=== PATIENT | male | born 1930 | race Caucasian/White ===

== ENCOUNTER 2016-11-19 11:37 | Inpatient (IN) | payer OTHER, BC ==
[2016-11-19 11:45] VITALS: BMI 21.6
--- NOTE | 2016-11-19 12:12 | PDOC ---
History of Present Illness - General History Source: Patient Exam Limitations: No Limitations - History of Present Illness Initial Comments: 11/19/16 12:20 The patient is an 86-year-old man, accompanied by his son, with a significant past medical history of hypertension, hypercholesterolemia, prostate Ca, borderline diabetes mellitus, asthma, chronic obstructive pulmonary disease, congestive heart failure who presents to the emergency department for further evaluation of shortness of breath. As per son, the patient lives alone and might 've missed a dose of his medications. He states that he noted that his father had difficulty walking. The patient gets short of breath, just walking a few steps. He also notes that the patient's legs are also swollen. Patient's son is currently arranging home health aide for his father. No fever, chills, weakness, nausea, vomiting, diarrhea. Allergies: Clopidogrel Bisulfate Past Surgical History: Right Carotid endarectomy. Angioplasty Social History: Former smoker. No ETOH and recreational drug use. Primary Care Physician: Dr. Tay Wu <Nelida Ewing - Last Filed: 11/19/16 14:24> <Mireille Milian - Last Filed: 11/19/16 22:30> - General Chief Complaint: Edema Stated Complaint: SWOLLEN FEET, SOB Time Seen by Provider: 11/19/16 12:10 Past History <Nelida Ewing - Last Filed: 11/19/16 14:24> - Past Medical History Anemia: No Asthma: Yes Cancer: Yes (prostate cancer) Cardiac Disorders: Yes (CHF, angina, ASHD, angioplasty) CVA: Yes COPD: Yes CHF: No Dementia: No Diabetes: (borderline) GI Disorders: No Disorders: No HTN: Yes Hypercholesterolemia: Yes Liver Disease: No Suicide Attempt (Hx): No Seizures: No Thyroid Disease: No - Surgical History Abdominal Surgery: No Appendectomy: No Cardiac Surgery: Yes (right carotid end) Cholecystectomy: No Lung Surgery: No Neurologic Surgery: No Orthopedic Surgery: No - Immunization History Immunization Up to Date: Yes - Psycho/Social/Smoking Cessation Hx Anxiety: No Suicidal Ideation: No Smoking Status: No Smoking History: Never smoked Have you smoked in the past 12 months: No Number of Cigarettes Smoked Daily: 0 If you are a former smoker, when did you quit?: 1984 Hx Alcohol Use: No Drug/Substance Use Hx: No Substance Use Type: None Hx Substance Use Treatment: No <Mireille Milian - Last Filed: 11/19/16 22:30> - Past Medical History Allergies/Adverse Reactions: Allergies Allergy/AdvReac Type Severity Reaction Status Date / Time clopidogrel bisulfate Allergy Verified 11/19/16 11:45 [From Plavix] Home Medications: Ambulatory Orders Aspirin [ASA -] 81 mg PO DAILY 11/19/16 Atenolol [Tenormin -] 50 mg PO DAILY 11/19/16 Cilostazol 100 mg PO BID 11/19/16 Colchicine [Colcrys] 0.6 mg PO DAILY 11/19/16 Famotidine 20 mg PO DAILY 11/19/16 Furosemide [Lasix] 40 mg PO DAILY 11/19/16 Loperamide HCl [Imodium -] 2 mg PO DAILY 11/19/16 Losartan Potassium [Cozaar] 25 mg PO DAILY 11/19/16 Multivitamin [Poly-Vitamin] 1 each PO DAILY 11/19/16 Potassium Chloride [Klor-Con M20] 20 meq PO DAILY 11/19/16 Simvastatin [Zocor -] 40 mg PO HS 11/19/16 Tamsulosin HCl [Flomax] 0.4 mg PO DAILY 11/19/16 Review of Systems - Review of Systems Able to Perform ROS?: Yes Comments:: 11/19/16 12:35 GENERAL/CONSTITUTIONAL: No fever or chills. No weakness. HEAD, EYES, EARS, NOSE AND THROAT: No change in vision. No ear pain or discharge. No sore throat. CARDIOVASCULAR: Yes: Shortness of breath. No chest pain or shortness of breath. RESPIRATORY: No cough, wheezing, or hemoptysis. GASTROINTESTINAL: No abdominal pain, nausea, vomiting, diarrhea or constipation. GENITOURINARY: No dysuria, frequency, or change in urination. MUSCULOSKELETAL: Yes: Leg swelling. No neck or back pain. SKIN: No rash NEUROLOGIC: No headache, vertigo, loss of consciousness, or change in strength/ sensation. ENDOCRINE: No increased thirst. No abnormal weight change. HEMATOLOGIC/LYMPHATIC: No anemia, easy bleeding, or history of blood clots. ALLERGIC/IMMUNOLOGIC: No hives or skin allergy. <Nelida Ewing - Last Filed: 11/19/16 14:24> *Physical Exam - Vital Signs Last Vital Signs Temp Pulse Resp BP Pulse Ox 97.5 F L 97 H 20 116/74 96 11/19/16 11:39 11/19/16 11:39 11/19/16 11:39 11/19/16 11:39 11/19/16 11:39 - Physical Exam Comments: 11/19/16 12:37 GENERAL: Awake, alert, and fully oriented, in no acute distress HEAD: No signs of trauma EYES: PERRLA, EOMI, sclera anicteric, conjunctiva clear ENT: Auricles normal inspection, hearing grossly normal, nares patent, oropharynx clear without exudates. Moist mucosa NECK: Normal ROM, supple, no lymphadenopathy, JVD, or masses LUNGS: Lung sounds are distant. HEART: Regular rate and rhythm, normal S1 and S2, no murmurs, rubs or gallops ABDOMEN: Soft, nontender, normoactive bowel sounds. No rebound. No masses EXTREMITIES: Normal range of motion, +2 pitting edema to the negron, bilaterally. No clubbing or cyanosis. No cords, erythema, or tenderness NEUROLOGICAL: Cranial nerves II through XII grossly intact. Normal speech <Nelida Ewing - Last Filed: 11/19/16 14:24> - Vital Signs Last Vital Signs Temp Pulse Resp BP Pulse Ox 97.5 F L 97 H 20 116/74 96 11/19/16 11:39 11/19/16 11:39 11/19/16 11:39 11/19/16 11:39 11/19/16 11:39 <Mireille Milian - Last Filed: 11/19/16 22:30> ED Treatment Course - LABORATORY CBC & Chemistry Diagram: 11/19/16 12:44 11/19/16 12:44 <Nelida Ewing - Last Filed: 11/19/16 14:24> - LABORATORY CBC & Chemistry Diagram: 11/19/16 12:44 11/19/16 12:44 <Mireille Milian - Last Filed: 11/19/16 22:30> Medical Decision Making - Medical Decision Making 11/19/16 14:[address] Tay Wu. Immediate connection. Case was discussed. <Nelida Ewing - Last Filed: 11/19/16 14:24> - Medical Decision Making Case d/w Dr. Wu. Patient appears to have CHF exacerbation based on physical exam findings and lab findings. He is unable to bear any weight on his feet due to the symptoms. Will admit for further workup and management. <Mireille Milian - Last Filed: 11/19/16 22:30> *DC/Admit/Observation/Transfer - Attestations Scribe Attestion: 11/19/16 12:37 Documentation prepared by Nelida Ewing, acting as medical art therapist for Mireille Milian MD. <Nelida Ewing - Last Filed: 11/19/16 14:24> - Discharge Dispostion Admit: Yes <Mireille Milian - Last Filed: 11/19/16 22:30> Diagnosis at time of Disposition: CHF exacerbation Qualifiers: Congestive heart failure type: unspecified congestive heart failure type Qualified Code(s): I50.9 - Heart failure, unspecified - Discharge Dispostion Condition at time of disposition: Stable - Referrals
[2016-11-19 13:19] LABS: BASOPHIL 0.6 % (0-2.0); EOSINOPHIL 0.2 % (0-4.5); MCH 28.5 pg (25.7-33.7); MCHC 33.1 g/dl (32.0-35.9); MEAN CELL VOLUME 85.9 fl (80-96); MEAN PLT VOLUME 6.7 fl (7.5-11.1); PLATELET COUNT 369 K/MM3 (134-434); RDW 14.4 % (11.9-15.9)
[2016-11-19 13:47] LABS: ALBUMIN 2.8 g/dl (3.4-5.0); ANION GAP 10 (8-16); CALCIUM 8.7 mg/dL (8.5-10.1); CO2 30 mmol/L (21-32); GLUCOSE,RANDOM 93 mg/dL (74-106)
[2016-11-19 13:52] LABS: ALK PHOS 67 U/L (45-117); BILIRUBIN,TOTAL 0.7 mg/dL (0.2-1.0); CREATININE 0.7 mg/dL (0.7-1.3); SGOT/AST 12 U/L (15-37); SGPT/ALT 11 U/L (12-78); TOT PROT 6.5 g/dl (6.4-8.2); TROPONIN I < 0.02 ng/ml (0.00-0.05)
[2016-11-19] MEDS ORDERED: FUROSEMIDE 40 MG/4 ML INJECTABLE VIAL IVPUSH ONE (14:23)
[2016-11-19] MEDS ORDERED: FUROSEMIDE 40 MG/4 ML INJECTABLE VIAL ONE (14:50)
[2016-11-19 16:26] LABS: URINE APPEARANCE CLEAR; URINE BILIRUBIN NEGATIVE (NEGATIVE); URINE COLOR YELLOW; URINE GLUCOSE (UA) NEGATIVE (NEGATIVE); URINE KETONE 1+ (NEGATIVE); URINE LEUK ESTERASE NEGATIVE (NEGATIVE); URINE NITRITE NEGATIVE (NEGATIVE); URINE PROTEIN NEGATIVE (NEGATIVE); URINE UROBILINOGEN 4.0 E.U/dl E.U./dl (0.2-1.0)
[2016-11-19 16:39] LABS: URINE BLOOD 1+ (NEGATIVE)
[2016-11-19 16:41] LABS: URINE BACTERIA RARE /hpf (NONE SEEN); URINE MUCUS RARE; URINE RBC 1 /hpf (0-3); URINE WBC 2 /hpf (3-5)
[2016-11-19] MEDS ORDERED: ACETAMINOPHEN 325 MG TABLET (FP) PO PRN (18:14)
[2016-11-19] MEDS ORDERED: CILOSTAZOL 100 MG TABLET PO SCH (22:00)
[2016-11-19] MEDS: ATORVASTATIN CA 20 MG TABLET (FP) PO SCH (23:32)
[2016-11-19] MEDS: RANITIDINE HCL 150 MG TABLET (FP) PO SCH (23:32)
[2016-11-20] MEDS ORDERED: PT OWN MED DRAWER 7, Y5N ONE ×2 (10:16→22:34)
[2016-11-20] MEDS: RANITIDINE HCL 150 MG TABLET (FP) PO SCH ×2 (10:33→23:03)
[2016-11-20] MEDS: ASPIRIN COATED 81 MG TABLET.EC PO SCH ×2 (10:33→10:34)
[2016-11-20] MEDS: LOSARTAN POTASSIUM 25 MG TABLET PO SCH (10:33)
[2016-11-20] MEDS: MULTIVITAMINS (DAILY MVI) TABLET (FP) PO SCH (10:33)
[2016-11-20] MEDS: ATENOLOL 50 MG TABLET (FP) PO SCH (10:33)
[2016-11-20] MEDS: TAMSULOSIN HCL 0.4 MG CAP.ER.24H (FP) PO SCH (10:33)
[2016-11-20] MEDS: POTASSIUM CHLORIDE TABS 20 MEQ TABLET.ER (FP) PO SCH (10:34)
[2016-11-20] MEDS: FUROSEMIDE 40 MG/4 ML INJECTABLE VIAL IVPB SCH (10:34)
[2016-11-20] MEDS: CILOSTAZOL 50 MG TABLET (FP) PO SCH ×2 (10:34→23:04)
--- NOTE | 2016-11-20 10:38 | CON.PULM ---
Consult Consult Specialty:: PULMONARY Referred by:: Dr. Wu Reason for Consultation:: CHF - History of Present Illness Chief Complaint: feet swelling History of Present Illness: 86yo male with h/o HTN, hypercholesterolemia, COPD, CHF who presents with increasing leg swelling. He does not recall how long the swelling has occurred. He denies shortness of breath although his ER presenting complaint was shortness of breath. No chest pain or palpitations. No fevers, chills or sweats. No nausea, vomiting. He sleeps on 2 pillows for comfort. He denies cough or wheezing. He takes a "couple" of inhalers at home but does not recall the names. 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) Pulmonary: Yes: COPD Renal/: Yes: Other (PAST PROSTATE CA) - Alcohol/Substance Use Hx Alcohol Use: No - Smoking History Smoking history: Former smoker Have you smoked in the past 12 months: No Aproximately how many cigarettes per day: 0 If you are a former smoker, when did you quit?: 1984 Home Medications - Allergies Allergies/Adverse Reactions: Allergies Allergy/AdvReac Type Severity Reaction Status Date / Time clopidogrel bisulfate Allergy Verified 11/19/16 11:45 [From Plavix] - Home Medications Home Medications: Ambulatory Orders Aspirin [ASA -] 81 mg PO DAILY 11/19/16 Atenolol [Tenormin -] 50 mg PO DAILY 11/19/16 Cilostazol 100 mg PO BID 11/19/16 Colchicine [Colcrys] 0.6 mg PO DAILY 11/19/16 Famotidine 20 mg PO DAILY 11/19/16 Furosemide [Lasix] 40 mg PO DAILY 11/19/16 Loperamide HCl [Imodium -] 2 mg PO DAILY 11/19/16 Losartan Potassium [Cozaar] 25 mg PO DAILY 11/19/16 Multivitamin [Poly-Vitamin] 1 each PO DAILY 11/19/16 Potassium Chloride [Klor-Con M20] 20 meq PO DAILY 11/19/16 Simvastatin [Zocor -] 40 mg PO HS 11/19/16 Tamsulosin HCl [Flomax] 0.4 mg PO DAILY 11/19/16 Family Disease History - Family Disease History Other Family History: non-contributory Review of Systems - Review of Systems Constitutional: denies: Chills, Fever Eyes: denies: Recent Change in Vision HENT: denies: Nasal Congestion, Throat Pain Neck: denies: Stiffness, Tenderness Cardiovascular: reports: Edema. denies: Chest Pain, Palpitations, Shortness of Breath Respiratory: denies: Cough, Hemoptysis, SOB, Wheezing Gastrointestinal: denies: Abdominal Pain, Nausea, Vomiting Genitourinary: denies: Dysuria, Hematuria Neurological: denies: Dizziness, Headache Physical Exam Vital Sings: Vital Signs Temperature 97.5 F L 11/20/16 05:29 Pulse Rate 87 11/20/16 05:29 Respiratory Rate 20 11/20/16 05:29 Blood Pressure 148/74 11/20/16 05:29 O2 Sat by Pulse Oximetry (%) 95 11/19/16 21:00 Constitutional: Yes: No Distress, Calm Eyes: Yes: Conjunctiva Clear, EOM Intact HENT: Yes: Atraumatic, Normocephalic Neck: Yes: Supple, Trachea Midline Cardiovascular: Yes: Regular Rate and Rhythm Respiratory: Yes: Diminished (decreased breath sounds at the bases) ...Clubbing: No Gastrointestinal: Yes: Normal Bowel Sounds, Soft. No: Tenderness Edema: Yes (trace) Neurological: Yes: Alert, Oriented Imaging - Results Chest X-ray: Report Reviewed, Image Reviewed (no infiltrates) Problem List - Problems (1) Acute on chronic diastolic (congestive) heart failure Code(s): I50.33 - ACUTE ON CHRONIC DIASTOLIC (CONGESTIVE) HEART FAILURE (2) Pulmonary hypertension Code(s): I27.2 - OTHER SECONDARY PULMONARY HYPERTENSION (3) COPD (chronic obstructive pulmonary disease) Code(s): J44.9 - CHRONIC OBSTRUCTIVE PULMONARY DISEASE, UNSPECIFIED (4) Hypertension Code(s): I10 - ESSENTIAL (PRIMARY) HYPERTENSION (5) Hypercholesteremia Code(s): E78.00 - PURE HYPERCHOLESTEROLEMIA, UNSPECIFIED Assessment/Plan Acute on Chronic Diastolic Heart Failure Pulmonary HTN COPD HTN Hypercholesterolemia - pt placed on IV lasix with significant improvement in leg swelling - monitor urine output, creatinine - daily weights - inhaled bronchodilators - O2 as needed - DVT prophylaxis Thank you for this consult Gt Ayala MD
--- NOTE | 2016-11-20 12:24 | EKG ---
Test Reason : Blood Pressure : / mmHG Vent. Rate : 098 BPM Atrial Rate : 098 BPM P-R Int : 128 ms QRS Dur : 116 ms QT Int : 360 ms P-R-T Axes : 076 061 048 degrees QTc Int : 459 ms NORMAL SINUS RHYTHM INCOMPLETE RIGHT BUNDLE BRANCH BLOCK BORDERLINE ECG WHEN COMPARED WITH ECG OF 17-JAN-2015 11:48, INCOMPLETE RIGHT BUNDLE BRANCH BLOCK HAS REPLACED RIGHT BUNDLE BRANCH BLOCK Confirmed by JOAQUÍN FLORES, SAMEERA ([id number]) on 11/20/2016 12:23:57 PM Referred By: Confirmed By:SAMEERA YANES MD
--- NOTE | 2016-11-20 16:35 | CON.CARD ---
Consult Consult Specialty:: Cardiology Referred by:: Dr. Wu Reason for Consultation:: Cardiac evaluation - History of Present Illness Chief Complaint: Shortness of breath History of Present Illness: Patient is an 86 year old male with underlying history of hypertension, hypercholesterolemia, COPD, LV diastolic dysfunction with history of class II NYHA classsification heart failure, CAD, angina pectoris, PAD s/p INTERLOCKER, non- obstructive carotid artery disease. He presented to [facility] with lower extremity edema and shortness of breath. Currently he denies shortness of breath. He denies chest pain or palpitations. He denies paroxysmal nocturnal dyspnea or orthopnea. He denies fever or chills. He denies headache or lightheadedness. He denies cough or expectorations. Cardiology consultation was called for further evaluation. - History Source History Provided By: Patient, Family Member, Medical Record Limitations to Obtaining History: No Limitations - Past Medical History Cardio/Vascular: Yes: CAD, CHF, HTN, Hyperlipdemia, Other (ASHD PAD S/P INTERLOCKER) Pulmonary: Yes: COPD Renal/: Yes: Other (PROSTATE CA) - Past Surgical History Additional Surgical History: INTERLOCKER - Alcohol/Substance Use Hx Alcohol Use: No - Smoking History Smoking history: Former smoker Have you smoked in the past 12 months: No Aproximately how many cigarettes per day: 0 If you are a former smoker, when did you quit?: 1984 Home Medications - Allergies Allergies/Adverse Reactions: Allergies Allergy/AdvReac Type Severity Reaction Status Date / Time clopidogrel bisulfate Allergy Verified 11/19/16 11:45 [From Plavix] - Home Medications Home Medications: Ambulatory Orders Aspirin [ASA -] 81 mg PO DAILY 11/19/16 Atenolol [Tenormin -] 50 mg PO DAILY 11/19/16 Cilostazol 100 mg PO BID 11/19/16 Colchicine [Colcrys] 0.6 mg PO DAILY 11/19/16 Famotidine 20 mg PO DAILY 11/19/16 Furosemide [Lasix] 40 mg PO DAILY 11/19/16 Loperamide HCl [Imodium -] 2 mg PO DAILY 11/19/16 Losartan Potassium [Cozaar] 25 mg PO DAILY 11/19/16 Multivitamin [Poly-Vitamin] 1 each PO DAILY 11/19/16 Potassium Chloride [Klor-Con M20] 20 meq PO DAILY 11/19/16 Simvastatin [Zocor -] 40 mg PO HS 11/19/16 Tamsulosin HCl [Flomax] 0.4 mg PO DAILY 11/19/16 Family Disease History - Family Disease History Other Family History: non-contributory Review of Systems - Review of Systems Constitutional: denies: Chills, Fever Cardiovascular: reports: Shortness of Breath. denies: Chest Pain, Palpitations Respiratory: reports: SOB. denies: Cough, Hemoptysis, Orthopnea, PND Gastrointestinal: denies: Abdominal Pain, Constipation, Diarrhea, Melena, Nausea , Rectal Bleeding, Vomiting Neurological: denies: Dizziness, Headache, Seizure, Syncope Vital Signs: Vital Signs Temperature 97.6 F 11/20/16 14:48 Pulse Rate 74 11/20/16 14:48 Respiratory Rate 20 11/20/16 14:48 Blood Pressure 90/45 11/20/16 14:48 O2 Sat by Pulse Oximetry (%) 98 11/20/16 09:00 Neck: Yes: Supple Respiratory: Yes: Diminished Gastrointestinal: Yes: Normal Bowel Sounds, Soft. No: Tenderness Cardiovascular: Yes: Regular Rate and Rhythm JVD: No Carotid Bruit: No PMI: Non-Displaced Heart Sounds: Yes: S1, S2 Murmur: No: Systolic Murmur, Diastolic Murmur Edema: Yes Edema: LLE: Trace, RLE: Trace - Other Data Labs, Other Data: CBCD WBC 9.0 K/mm3 (4.0-10.0) D 11/19/16 12:44 RBC 4.04 M/mm3 (4.00-5.60) 11/19/16 12:44 Hgb 11.5 GM/dL (11.7-16.9) L D 11/19/16 12:44 Hct 34.7 % (35.4-49) L D 11/19/16 12:44 MCV 85.9 fl (80-96) 11/19/16 12:44 MCHC 33.1 g/dl (32.0-35.9) 11/19/16 12:44 RDW 14.4 % (11.9-15.9) 11/19/16 12:44 Plt Count 369 K/MM3 (134-434) 11/19/16 12:44 MPV 6.7 fl (7.5-11.1) L D 11/19/16 12:44 CMP Sodium 140 mmol/L (136-145) 11/19/16 12:44 Potassium 4.3 mmol/L (3.5-5.1) 11/19/16 12:44 Chloride 100 mmol/L (98-107) 11/19/16 12:44 Carbon Dioxide 30 mmol/L (21-32) 11/19/16 12:44 Anion Gap 10 (8-16) 11/19/16 12:44 BUN 12 mg/dL (7-18) D 11/19/16 12:44 Creatinine 0.7 mg/dL (0.7-1.3) 11/19/16 12:44 Creat Clearance w eGFR > 60 (>60) 11/19/16 12:44 Random Glucose 93 mg/dL (74-106) D 11/19/16 12:44 Calcium 8.7 mg/dL (8.5-10.1) 11/19/16 12:44 Total Bilirubin 0.7 mg/dL (0.2-1.0) D 11/19/16 12:44 AST 12 U/L (15-37) L D 11/19/16 12:44 ALT 11 U/L (12-78) L D 11/19/16 12:44 Alkaline Phosphatase 67 U/L (45-117) D 11/19/16 12:44 Total Protein 6.5 g/dl (6.4-8.2) 11/19/16 12:44 Albumin 2.8 g/dl (3.4-5.0) L 11/19/16 12:44 CARDIAC ENZYMES Creatine Kinase 27 IU/L (39-308) L 11/19/16 12:44 Troponin I < 0.02 ng/ml (0.00-0.05) 11/19/16 12:44 Normal sinus rhythm with incomplete RBBB Imaging - Results Chest X-ray: Report Reviewed (Unremarkable) EKG: Report Reviewed Problem List - Problems (1) Acute on chronic diastolic (congestive) heart failure Code(s): I50.33 - ACUTE ON CHRONIC DIASTOLIC (CONGESTIVE) HEART FAILURE (2) Hypercholesteremia Code(s): E78.00 - PURE HYPERCHOLESTEROLEMIA, UNSPECIFIED (3) Hypertension Code(s): I10 - ESSENTIAL (PRIMARY) HYPERTENSION Qualifiers: Hypertension type: essential hypertension Qualified Code(s): I10 - Essential (primary) hypertension (4) COPD (chronic obstructive pulmonary disease) Code(s): J44.9 - CHRONIC OBSTRUCTIVE PULMONARY DISEASE, UNSPECIFIED Qualifiers : COPD type: unspecified COPD Qualified Code(s): J44.9 - Chronic obstructive pulmonary disease, unspecified Assessment/Plan 1. Clinical presentation compatible with acute on chronic LV diastolic failure - Class II NYHA classification heart failure 2. COPD with history of exacerbation 3. HTN 4. Hypercholesterolemia 5. CAD, angina pectoris 6. PAD S/P INTERLOCKER 7. Carotid artery disease PLAN: 1. Continue Lasix IV and monitor I/O, daily weight, renal function and electrolytes 2. Continue Atenolol and Losartan 3. Continue Lipitor 4. Continue ASA and Pletal Further plans are to follow Onofre Oseguera MD
--- NOTE | 2016-11-20 21:39 | HP ---
Admitting History and Physical - Primary Care Physician PCP: Tay Wu - Admission Chief Complaint: LEG EDEMA/RESP DISTRESS History of Present Illness: The patient is an 86-year-old man, accompanied by his son, with a significant past medical history of hypertension, hypercholesterolemia, prostate Ca, borderline diabetes mellitus, asthma, chronic obstructive pulmonary disease, congestive heart failure who presents to the emergency department for further evaluation of shortness of breath. As per son, the patient lives alone and might 've missed a dose of his medications. He states that he noted that his father had difficulty walking. The patient gets short of breath, just walking a few steps. He also notes that the patient's legs are also swollen. Patient's son is currently arranging home health aide for his father. No fever, chills, weakness, nausea, vomiting, diarrhea. History Source: Patient, Medical Record - Past Medical History Cardiovascular: Yes: HTN, Other (ASHD PAD S/P LIST [employer]) Pulmonary: Yes: COPD Renal/: Yes: Other (PAST PROSTATE CA) - Smoking History Smoking history: Former smoker Have you smoked in the past 12 months: No Aproximately how many cigarettes per day: 0 If you are a former smoker, when did you quit?: 1984 - Alcohol/Substance Use Hx Alcohol Use: No Home Medications - Allergies Allergies/Adverse Reactions: Allergies Allergy/AdvReac Type Severity Reaction Status Date / Time clopidogrel bisulfate Allergy Verified 11/19/16 11:45 [From Plavix] - Home Medications Home Medications: Ambulatory Orders Aspirin [ASA -] 81 mg PO DAILY 11/19/16 Atenolol [Tenormin -] 50 mg PO DAILY 11/19/16 Cilostazol 100 mg PO BID 11/19/16 Colchicine [Colcrys] 0.6 mg PO DAILY 11/19/16 Famotidine 20 mg PO DAILY 11/19/16 Furosemide [Lasix] 40 mg PO DAILY 11/19/16 Loperamide HCl [Imodium -] 2 mg PO DAILY 11/19/16 Losartan Potassium [Cozaar] 25 mg PO DAILY 11/19/16 Multivitamin [Poly-Vitamin] 1 each PO DAILY 11/19/16 Potassium Chloride [Klor-Con M20] 20 meq PO DAILY 11/19/16 Simvastatin [Zocor -] 40 mg PO HS 11/19/16 Tamsulosin HCl [Flomax] 0.4 mg PO DAILY 11/19/16 Family Disease History - Family Disease History Other Family History: non-contributory Review of Systems - Review of Systems Constitutional: reports: Lethargy, Loss of Appetite, Weakness Eyes: reports: No Symptoms HENT: reports: No Symptoms Neck: reports: No Symptoms Cardiovascular: reports: Shortness of Breath Respiratory: reports: SOB Gastrointestinal: reports: No Symptoms Genitourinary: reports: No Symptoms Musculoskeletal: reports: Joint Pain, Muscle Weakness Integumentary: reports: No Symptoms Neurological: reports: Pre-Existing Deficit, Other Endocrine: reports: No Symptoms Hematology/Lymphatic: reports: No Symptoms Physical Examination Vital Signs: Vital Signs Temperature 98.5 F 11/20/16 18:00 Pulse Rate 77 11/20/16 18:00 Respiratory Rate 20 11/20/16 18:00 Blood Pressure 96/47 11/20/16 18:00 O2 Sat by Pulse Oximetry (%) 98 11/20/16 09:00 Constitutional: Yes: Mild Distress Eyes: Yes: WNL HENT: Yes: WNL Neck: Yes: WNL Cardiovascular: Yes: WNL Respiratory: Yes: Poor Air Entry, SOB, Other Gastrointestinal: Yes: WNL Renal/: Yes: WNL Musculoskeletal: Yes: Back Pain, Muscle Weakness Extremities: Yes: WNL Edema: Yes Edema: LLE: 2+, RLE: 2+ Peripheral Pulses WNL: Yes Integumentary: Yes: WNL Wound/Incision: Yes: Clean/Dry Neurological: Yes: Pre-Existing Deficit ...Motor Strength: LLE, RLE Imaging - Results Chest X-ray: Report Reviewed Problem List - Problems (1) Acute on chronic diastolic (congestive) heart failure Code(s): I50.33 - ACUTE ON CHRONIC DIASTOLIC (CONGESTIVE) HEART FAILURE (2) CHF exacerbation Code(s): I50.9 - HEART FAILURE, UNSPECIFIED Qualifiers: Congestive heart failure type: unspecified congestive heart failure type Qualified Code(s): I50.9 - Heart failure, unspecified (3) Hypercholesteremia Code(s): E78.00 - PURE HYPERCHOLESTEROLEMIA, UNSPECIFIED (4) Hypertension Code(s): I10 - ESSENTIAL (PRIMARY) HYPERTENSION (5) Pulmonary hypertension Code(s): I27.2 - OTHER SECONDARY PULMONARY HYPERTENSION (6) COPD (chronic obstructive pulmonary disease) Code(s): J44.9 - CHRONIC OBSTRUCTIVE PULMONARY DISEASE, UNSPECIFIED (7) Edema Code(s): R60.9 - EDEMA, UNSPECIFIED Assessment/Plan IV LASIX CHANGE TO TELEMETRY HYPOTENSION CARDIO EVAL PULMONARY F/U LABS F/U SNF
[2016-11-20] MEDS: ATORVASTATIN CA 20 MG TABLET (FP) PO SCH (23:03)
[2016-11-21] MEDS: FUROSEMIDE 40 MG/4 ML INJECTABLE VIAL IVPB SCH (09:57)
[2016-11-21] MEDS: POTASSIUM CHLORIDE TABS 20 MEQ TABLET.ER (FP) PO SCH (09:57)
[2016-11-21] MEDS: RANITIDINE HCL 150 MG TABLET (FP) PO SCH ×2 (09:57→22:05)
[2016-11-21] MEDS: TAMSULOSIN HCL 0.4 MG CAP.ER.24H (FP) PO SCH (09:57)
[2016-11-21] MEDS: ATENOLOL 50 MG TABLET (FP) PO SCH (09:57)
[2016-11-21] MEDS: MULTIVITAMINS (DAILY MVI) TABLET (FP) PO SCH (09:57)
[2016-11-21] MEDS: ASPIRIN COATED 81 MG TABLET.EC PO SCH (09:58)
[2016-11-21] MEDS ORDERED: PT OWN MED DRAWER 7, Y5N ONE (10:00)
[2016-11-21] MEDS: LOSARTAN POTASSIUM 25 MG TABLET PO SCH (10:00)
--- NOTE | 2016-11-21 10:02 | PN ---
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 Admitted with dyspnea and pedal edema. No history of orthopnea or PND. Active Medications Generic Name Dose Route Start Last Admin Trade Name Freq PRN Reason Stop Dose Admin Acetaminophen 650 mg 11/19/16 18:14 Tylenol - PO Q6H PRN FEVER OR PAIN Aspirin 81 mg 11/19/16 18:15 11/21/16 09:58 Ecotrin - PO 81 mg DAILY BOBBY Administration Atenolol 50 mg 11/20/16 10:00 11/21/16 09:57 Tenormin - PO 50 mg DAILY BOBBY Administration Atorvastatin Calcium 20 mg 11/19/16 22:00 11/20/16 23:03 Lipitor - PO 20 mg HS BOBBY Administration Cilostazol 100 mg 11/19/16 23:35 11/21/16 10:05 Pletal - PO 100 mg BID BOBBY Administration Furosemide 40 mg 11/20/16 10:00 11/21/16 09:57 Lasix Injection - IVPB 40 mg DAILY BOBBY Administration Losartan Potassium 25 mg 11/20/16 10:00 11/21/16 10:00 Cozaar - PO 25 mg DAILY BOBBY Administration Multivitamins/Minerals/Vitamin C 1 tab 11/20/16 10:00 11/21/16 09:57 Tab-A-Vit - PO 1 tab DAILY BOBBY Administration Potassium Chloride 20 meq 11/20/16 10:00 11/21/16 09:57 K-Dur - PO 20 meq DAILY BOBBY Administration Ranitidine HCl 150 mg 11/19/16 22:00 11/21/16 09:57 Zantac - PO 150 mg BID BOBBY Administration Tamsulosin HCl 0.4 mg 11/20/16 08:30 11/21/16 09:57 Flomax - PO 0.4 mg DAILY@0830 BOBBY Administration O: 86 year old male was in no acute distress, no pallor, cyanosis, clubbing, or jaundice. Last Vital Signs Temp Pulse Resp BP Pulse Ox 98.2 F 92 H 18 99/51 93 L 11/21/16 06:00 11/21/16 06:00 11/21/16 06:00 11/21/16 06:00 11/21/16 06:00 Neck: Supple, no JVD, negative HJR, carotids were equal and upstrokes were normal, no thyromegaly appreciated. Heart: PMI was in the 5th intercostal space, no heaves or thrills, S1 and S2 were normal. No murmurs or gallops were appreciated. Lungs: Clear on auscultation bilaterally. Abdomen: Soft, nontender, no hepatosplenomegaly appreciated, and no palpable masses were felt. Extremities: No calf tenderness or dependent edema. CBC, BMP 11/19/16 12:44 11/19/16 12:44 Impression: (1) Acute on chronic diastolic (congestive) heart failure Code(s): I50.33 - ACUTE ON CHRONIC DIASTOLIC (CONGESTIVE) HEART FAILURE (2) Hypertension Code(s): I10 - ESSENTIAL (PRIMARY) HYPERTENSION Qualifiers: Hypertension type: essential hypertension Qualified Code(s): I10 - Essential (primary) hypertension (3) Hypercholesteremia Code(s): E78.00 - PURE HYPERCHOLESTEROLEMIA, UNSPECIFIED (4) COPD (chronic obstructive pulmonary disease) Code(s): J44.9 - CHRONIC OBSTRUCTIVE PULMONARY DISEASE, UNSPECIFIED Qualifiers : COPD type: unspecified COPD Qualified Code(s): J44.9 - Chronic obstructive pulmonary disease, unspecified Recommendations: 1. Patient needs consulting regarding dietary restrictions, including curtailing of salt intake. 2. Daily weights. 3. Increase ambulation. Attestation: Documentation prepared by Ceferino Starr, acting as medical reception specialist for Stanley Lind MD.
[2016-11-21] MEDS: CILOSTAZOL 50 MG TABLET (FP) PO SCH ×2 (10:05→22:06)
--- NOTE | 2016-11-21 12:02 | PN ---
Progress Note, Physician History of Present Illness: PULMONARY ALERT,CONFUSED,NAD,-TACHYPNEA,-DYSPNEA - Current Medication List Current Medications: Active Medications Acetaminophen (Tylenol -) 650 mg PO Q6H PRN PRN Reason: FEVER OR PAIN Aspirin (Ecotrin -) 81 mg PO DAILY [facility] Last Admin: 11/21/16 09:58 Dose: 81 mg Atenolol (Tenormin -) 50 mg PO DAILY [facility] Last Admin: 11/21/16 09:57 Dose: 50 mg Atorvastatin Calcium (Lipitor -) 20 mg PO HS [facility] Last Admin: 11/20/16 23:03 Dose: 20 mg Cilostazol (Pletal -) 100 mg PO BID [facility] Last Admin: 11/21/16 10:05 Dose: 100 mg Furosemide (Lasix Injection -) 40 mg IVPB DAILY [facility] Last Admin: 11/21/16 09:57 Dose: 40 mg Losartan Potassium (Cozaar -) 25 mg PO DAILY [facility] Last Admin: 11/21/16 10:00 Dose: 25 mg Multivitamins/Minerals/Vitamin C (Tab-A-Vit -) 1 tab PO DAILY [facility] Last Admin: 11/21/16 09:57 Dose: 1 tab Potassium Chloride (K-Dur -) 20 meq PO DAILY [facility] Last Admin: 11/21/16 09:57 Dose: 20 meq Ranitidine HCl (Zantac -) 150 mg PO BID [facility] Last Admin: 11/21/16 09:57 Dose: 150 mg Tamsulosin HCl (Flomax -) 0.4 mg PO DAILY@0830 [facility] Last Admin: 11/21/16 09:57 Dose: 0.4 mg - Objective Vital Signs: Vital Signs Temperature 98.2 F 11/21/16 06:00 Pulse Rate 92 H 11/21/16 06:00 Respiratory Rate 18 11/21/16 09:00 Blood Pressure 99/51 11/21/16 06:00 O2 Sat by Pulse Oximetry (%) 94 L 11/21/16 09:00 Constitutional: Yes: Calm, Thin Eyes: Yes: WNL HENT: Yes: WNL Neck: Yes: Supple Cardiovascular: Yes: Regular Rate and Rhythm, S1, S2 Respiratory: Yes: Diminished Gastrointestinal: Yes: Normal Bowel Sounds, Soft Extremities: Yes: WNL Edema: Yes Assessment/Plan Problem List - Problems (1) Acute on chronic diastolic (congestive) heart failure Code(s): I50.33 - ACUTE ON CHRONIC DIASTOLIC (CONGESTIVE) HEART FAILURE (2) Pulmonary hypertension Code(s): I27.2 - OTHER SECONDARY PULMONARY HYPERTENSION (3) COPD (chronic obstructive pulmonary disease) Code(s): J44.9 - CHRONIC OBSTRUCTIVE PULMONARY DISEASE, UNSPECIFIED (4) Hypertension Code(s): I10 - ESSENTIAL (PRIMARY) HYPERTENSION (5) Hypercholesteremia Code(s): E78.00 - PURE HYPERCHOLESTEROLEMIA, UNSPECIFIED Assessment/Plan Acute on Chronic Diastolic Heart Failure Pulmonary HTN COPD HTN Hypercholesterolemia - continue IV lasix - monitor urine output, creatinine - daily weights - inhaled bronchodilators - O2 as needed DR RITCHIE
--- NOTE | 2016-11-21 15:40 | PN ---
Progress Note, Physician Chief Complaint: AWAKE ALERT NO DISTRESS - Current Medication List Current Medications: Active Medications Acetaminophen (Tylenol -) 650 mg PO Q6H PRN PRN Reason: FEVER OR PAIN Aspirin (Ecotrin -) 81 mg PO DAILY [facility] Last Admin: 11/21/16 09:58 Dose: 81 mg Atenolol (Tenormin -) 50 mg PO DAILY [facility] Last Admin: 11/21/16 09:57 Dose: 50 mg Atorvastatin Calcium (Lipitor -) 20 mg PO HS [facility] Last Admin: 11/20/16 23:03 Dose: 20 mg Cilostazol (Pletal -) 100 mg PO BID [facility] Last Admin: 11/21/16 10:05 Dose: 100 mg Furosemide (Lasix Injection -) 40 mg IVPB DAILY [facility] Last Admin: 11/21/16 09:57 Dose: 40 mg Losartan Potassium (Cozaar -) 25 mg PO DAILY [facility] Last Admin: 11/21/16 10:00 Dose: 25 mg Multivitamins/Minerals/Vitamin C (Tab-A-Vit -) 1 tab PO DAILY [facility] Last Admin: 11/21/16 09:57 Dose: 1 tab Potassium Chloride (K-Dur -) 20 meq PO DAILY [facility] Last Admin: 11/21/16 09:57 Dose: 20 meq Ranitidine HCl (Zantac -) 150 mg PO BID [facility] Last Admin: 11/21/16 09:57 Dose: 150 mg Tamsulosin HCl (Flomax -) 0.4 mg PO DAILY@0830 [facility] Last Admin: 11/21/16 09:57 Dose: 0.4 mg - Objective Vital Signs: Vital Signs Temperature 98.2 F 11/21/16 06:00 Pulse Rate 92 H 11/21/16 06:00 Respiratory Rate 18 11/21/16 09:00 Blood Pressure 99/51 11/21/16 06:00 O2 Sat by Pulse Oximetry (%) 94 L 11/21/16 11:17 Constitutional: Yes: No Distress Eyes: Yes: WNL HENT: Yes: WNL Neck: Yes: WNL Cardiovascular: Yes: WNL Respiratory: Yes: WNL Gastrointestinal: Yes: WNL Genitourinary: Yes: WNL Musculoskeletal: Yes: Muscle Weakness Extremities: Yes: WNL Edema: No Peripheral Pulses WNL: Yes Integumentary: Yes: WNL Wound/Incision: Yes: Clean/Dry Neurological: Yes: Unsteady Gait ...Motor Strength: LLE, RLE Psychiatric: Yes: WNL Problem List - Problems (1) Acute on chronic diastolic (congestive) heart failure Code(s): I50.33 - ACUTE ON CHRONIC DIASTOLIC (CONGESTIVE) HEART FAILURE (2) CHF exacerbation Code(s): I50.9 - HEART FAILURE, UNSPECIFIED Qualifiers: Congestive heart failure type: unspecified congestive heart failure type Qualified Code(s): I50.9 - Heart failure, unspecified (3) Hypercholesteremia Code(s): E78.00 - PURE HYPERCHOLESTEROLEMIA, UNSPECIFIED (4) Hypertension Code(s): I10 - ESSENTIAL (PRIMARY) HYPERTENSION Qualifiers: Hypertension type: essential hypertension Qualified Code(s): I10 - Essential (primary) hypertension (5) Pulmonary hypertension Code(s): I27.2 - OTHER SECONDARY PULMONARY HYPERTENSION (6) COPD (chronic obstructive pulmonary disease) Code(s): J44.9 - CHRONIC OBSTRUCTIVE PULMONARY DISEASE, UNSPECIFIED Qualifiers : COPD type: unspecified COPD Qualified Code(s): J44.9 - Chronic obstructive pulmonary disease, unspecified (7) Edema Code(s): R60.9 - EDEMA, UNSPECIFIED Assessment/Plan IV LASIX CHANGE TO TELEMETRY HYPOTENSION CARDIO EVAL PULMONARY F/U LABS F/U SNF
[2016-11-21] MEDS: ATORVASTATIN CA 20 MG TABLET (FP) PO SCH (22:05)
[2016-11-22 08:13] LABS: MCH 28.5 pg (25.7-33.7); MCHC 33.4 g/dl (32.0-35.9); MEAN CELL VOLUME 85.2 fl (80-96); MEAN PLT VOLUME 7.1 fl (7.5-11.1); PLATELET COUNT 382 K/MM3 (134-434); RDW 14.5 % (11.9-15.9); WHITE BLOOD COUNT 7.1 K/mm3 (4.0-10.0)
[2016-11-22] MEDS: TAMSULOSIN HCL 0.4 MG CAP.ER.24H (FP) PO SCH (08:55)
[2016-11-22 08:58] LABS: ALBUMIN 2.4 g/dl (3.4-5.0); ANION GAP 10 (8-16); CALCIUM 8.3 mg/dL (8.5-10.1); CO2 32 mmol/L (21-32); CREATININE 1.1 mg/dL (0.7-1.3); GLUCOSE,RANDOM 101 mg/dL (74-106)
--- NOTE | 2016-11-22 09:10 | PN ---
Progress Note, Physician History of Present Illness: LEG PAIN - Current Medication List Current Medications: Active Medications Acetaminophen (Tylenol -) 650 mg PO Q6H PRN PRN Reason: FEVER OR PAIN Aspirin (Ecotrin -) 81 mg PO DAILY [facility] Last Admin: 11/21/16 09:58 Dose: 81 mg Atenolol (Tenormin -) 50 mg PO DAILY [facility] Last Admin: 11/21/16 09:57 Dose: 50 mg Atorvastatin Calcium (Lipitor -) 20 mg PO HS [facility] Last Admin: 11/21/16 22:05 Dose: 20 mg Cilostazol (Pletal -) 100 mg PO BID [facility] Last Admin: 11/21/16 22:06 Dose: 100 mg Furosemide (Lasix Injection -) 40 mg IVPB DAILY [facility] Last Admin: 11/21/16 09:57 Dose: 40 mg Losartan Potassium (Cozaar -) 25 mg PO DAILY [facility] Last Admin: 11/21/16 10:00 Dose: 25 mg Multivitamins/Minerals/Vitamin C (Tab-A-Vit -) 1 tab PO DAILY [facility] Last Admin: 11/21/16 09:57 Dose: 1 tab Potassium Chloride (K-Dur -) 20 meq PO DAILY [facility] Last Admin: 11/21/16 09:57 Dose: 20 meq Ranitidine HCl (Zantac -) 150 mg PO BID [facility] Last Admin: 11/21/16 22:05 Dose: 150 mg Tamsulosin HCl (Flomax -) 0.4 mg PO DAILY@0830 [facility] Last Admin: 11/22/16 08:55 Dose: 0.4 mg - Objective Vital Signs: Vital Signs Temperature 97.5 F L 11/22/16 05:49 Pulse Rate 105 H 11/22/16 05:49 Respiratory Rate 20 11/22/16 05:49 Blood Pressure 104/78 11/22/16 05:49 O2 Sat by Pulse Oximetry (%) 96 11/21/16 21:00 Cardiovascular: Yes: Regular Rate and Rhythm Respiratory: Yes: Regular, CTA Bilaterally Gastrointestinal: Yes: Normal Bowel Sounds, Soft Labs: CBC, BMP 11/22/16 06:07 Problem List - Problems (1) Acute on chronic diastolic (congestive) heart failure Assessment/Plan: ON LASIX CARDIO ON BOARD Code(s): I50.33 - ACUTE ON CHRONIC DIASTOLIC (CONGESTIVE) HEART FAILURE (2) Hypertension Assessment/Plan: CONTROLLED Code(s): I10 - ESSENTIAL (PRIMARY) HYPERTENSION Qualifiers: Hypertension type: essential hypertension Qualified Code(s): I10 - Essential (primary) hypertension (3) COPD (chronic obstructive pulmonary disease) Code(s): J44.9 - CHRONIC OBSTRUCTIVE PULMONARY DISEASE, UNSPECIFIED Qualifiers : COPD type: unspecified COPD Qualified Code(s): J44.9 - Chronic obstructive pulmonary disease, unspecified (4) Leg pain Assessment/Plan: H/O PAD ON PLETAL ADD CYMBALTA Code(s): M79.606 - PAIN IN LEG, UNSPECIFIED (5) Anemia Assessment/Plan: MONITOR W/U ORDERED Code(s): D64.9 - ANEMIA, UNSPECIFIED
[2016-11-22 09:24] LABS: ALK PHOS 59 U/L (45-117); BILIRUBIN,TOTAL 0.6 mg/dL (0.2-1.0); SGOT/AST 9 U/L (15-37); SGPT/ALT 9 U/L (12-78); TOT PROT 5.6 g/dl (6.4-8.2)
[2016-11-22] MEDS: ASPIRIN COATED 81 MG TABLET.EC PO SCH (09:34)
[2016-11-22] MEDS: LOSARTAN POTASSIUM 25 MG TABLET PO SCH (09:34)
[2016-11-22] MEDS: POTASSIUM CHLORIDE TABS 20 MEQ TABLET.ER (FP) PO SCH (09:34)
[2016-11-22] MEDS: RANITIDINE HCL 150 MG TABLET (FP) PO SCH ×2 (09:35→23:44)
[2016-11-22] MEDS: MULTIVITAMINS (DAILY MVI) TABLET (FP) PO SCH (09:35)
[2016-11-22] MEDS: ATENOLOL 50 MG TABLET (FP) PO SCH (09:35)
[2016-11-22] MEDS: FUROSEMIDE 40 MG/4 ML INJECTABLE VIAL IVPB SCH (09:38)
[2016-11-22] MEDS: CILOSTAZOL 50 MG TABLET (FP) PO SCH ×3 (09:38→23:44)
--- NOTE | 2016-11-22 11:19 | PN ---
Progress Note (short form) - Note Progress Note: Chief Complaint: Events noted, notes reviewed, denies any chest pain or dyspnea History of Present Illness: Seen and examined on telemetry. Events noted, notes reviewed, denies any chest pain or dyspnea Echocardiography revealed LVH with low normal LV systolic function, trace to mild MR and TR Medications: Current Medications Acetaminophen (Tylenol -) 650 mg PO Q6H PRN PRN Reason: FEVER OR PAIN Aspirin (Ecotrin -) 81 mg PO DAILY [facility] Last Admin: 11/22/16 09:34 Dose: 81 mg Atenolol (Tenormin -) 50 mg PO DAILY [facility] Last Admin: 11/22/16 09:35 Dose: 50 mg Atorvastatin Calcium (Lipitor -) 20 mg PO HS [facility] Last Admin: 11/21/16 22:05 Dose: 20 mg Cilostazol (Pletal -) 100 mg PO BID [facility] Last Admin: 11/22/16 09:38 Dose: Not Given Furosemide (Lasix Injection -) 40 mg IVPB DAILY [facility] Last Admin: 11/22/16 09:38 Dose: Not Given Losartan Potassium (Cozaar -) 25 mg PO DAILY [facility] Last Admin: 11/22/16 09:34 Dose: 25 mg Multivitamins/Minerals/Vitamin C (Tab-A-Vit -) 1 tab PO DAILY [facility] Last Admin: 11/22/16 09:35 Dose: 1 tab Potassium Chloride (K-Dur -) 20 meq PO DAILY [facility] Last Admin: 11/22/16 09:34 Dose: 20 meq Ranitidine HCl (Zantac -) 150 mg PO BID [facility] Last Admin: 11/22/16 09:35 Dose: 150 mg Tamsulosin HCl (Flomax -) 0.4 mg PO DAILY@0830 [facility] Last Admin: 11/22/16 08:55 Dose: 0.4 mg Review of Systems Constitutional: denies Chills or Fever Respiratory: denies Dyspnea or Cough Cardiovascular: As noted above Gastrointestinal: denies Nausea, Vomiting, Diarrhea or Constipation Genitourinary: No Symptoms Reported Musculoskeletal: No Symptoms Reported Vital Signs: Last Vital Signs Temp Pulse Resp BP Pulse Ox 97.5 F L 105 H 20 104/78 96 11/22/16 05:49 11/22/16 05:49 11/22/16 05:49 11/22/16 05:49 11/21/16 21:00 Neck: Supple Negative JVD Respiratory: Diminished Breath Sounds at the Bases Cardiovascular: S1 S2 Regular Rate and Rhythm Gastrointestinal: Soft Benign Normal Bowel Sounds Ext: No Edema Labs: CBC, BMP 11/22/16 06:07 11/22/16 06:07 Assessment/Plan ASSESSMENT: 1. Acute on chronic Class I-II NYHA classification LV failure related to diastolic LV dysfunction, resolved 2. CAD, angina pectoris 3. HTN 4. Hypercholesterolemia 5. Carotid artery disease 6. 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 COPD 8. CKD 9. Anemia PLAN: 1. Continue Lasix but switch to PO therapy 2. Continue B-Maury but initiate Coreg in substitution for Tenormin 3. Continue Losartan 4. Continue Lipitor 5. Continue ASA 6. Continue Pletal Shelbi Mojica MD
--- NOTE | 2016-11-22 14:21 | PN ---
Progress Note (short form) - Note Progress Note: Resting in NAD on RA. Denies CP or SOB. Mildly confused. Intake & Output 11/19/16 11/20/16 11/21/16 11/22/16 23:59 23:59 23:59 23:59 Intake Total 490 Output Total 300 Balance -300 490 Weight 130 lb Last Vital Signs Temp Pulse Resp BP Pulse Ox 97.5 F L 105 H 20 104/78 97 11/22/16 05:49 11/22/16 05:49 11/22/16 05:49 11/22/16 05:49 11/22/16 09:00 Active Medications Acetaminophen (Tylenol -) 650 mg PO Q6H PRN PRN Reason: FEVER OR PAIN Aspirin (Ecotrin -) 81 mg PO DAILY [facility] Last Admin: 11/22/16 09:34 Dose: 81 mg Atorvastatin Calcium (Lipitor -) 20 mg PO HS [facility] Last Admin: 11/21/16 22:05 Dose: 20 mg Carvedilol (Coreg -) 6.25 mg PO BID [facility] Cilostazol (Pletal -) 100 mg PO BID [facility] Last Admin: 11/22/16 11:58 Dose: 100 mg Duloxetine HCl (Cymbalta -) 20 mg PO DAILY [facility] Losartan Potassium (Cozaar -) 25 mg PO DAILY [facility] Last Admin: 11/22/16 09:34 Dose: 25 mg Multivitamins/Minerals/Vitamin C (Tab-A-Vit -) 1 tab PO DAILY [facility] Last Admin: 11/22/16 09:35 Dose: 1 tab Potassium Chloride (K-Dur -) 20 meq PO DAILY [facility] Last Admin: 11/22/16 09:34 Dose: 20 meq Ranitidine HCl (Zantac -) 150 mg PO BID [facility] Last Admin: 11/22/16 09:35 Dose: 150 mg Tamsulosin HCl (Flomax -) 0.4 mg PO DAILY@0830 [facility] Last Admin: 11/22/16 08:55 Dose: 0.4 mg Constitutional: Yes: NAD, Thin Eyes: Yes: WNL HENT: Yes: WNL Neck: Yes: Supple Cardiovascular: Yes: Regular Rate and Rhythm, S1, S2 Respiratory: Yes: few basilar rhonchi Gastrointestinal: Yes: Normal Bowel Sounds, Soft Extremities: Yes: WNL Edema: Yes Laboratory Results - last 24 hr 11/22/16 11/22/16 06:07 06:07 WBC 7.1 RBC 3.44 L Hgb 9.8 L D Hct 29.3 L D MCV 85.2 MCHC 33.4 RDW 14.5 Plt Count 382 MPV 7.1 L Sodium 142 Potassium 3.5 Chloride 100 Carbon Dioxide 32 Anion Gap 10 BUN 22 H D Creatinine 1.1 D Creat Clearance w eGFR > 60 Random Glucose 101 Calcium 8.3 L Total Bilirubin 0.6 AST 9 L D ALT 9 L Alkaline Phosphatase 59 Total Protein 5.6 L Albumin 2.4 L Assessment/Plan Problem List - Problems (1) Acute on chronic diastolic (congestive) heart failure Code(s): I50.33 - ACUTE ON CHRONIC DIASTOLIC (CONGESTIVE) HEART FAILURE (2) Pulmonary hypertension Code(s): I27.2 - OTHER SECONDARY PULMONARY HYPERTENSION (3) COPD (chronic obstructive pulmonary disease) Code(s): J44.9 - CHRONIC OBSTRUCTIVE PULMONARY DISEASE, UNSPECIFIED (4) Hypertension Code(s): I10 - ESSENTIAL (PRIMARY) HYPERTENSION (5) Hypercholesteremia Code(s): E78.00 - PURE HYPERCHOLESTEROLEMIA, UNSPECIFIED Assessment/Plan Acute on Chronic Diastolic Heart Failure Pulmonary HTN COPD HTN Hypercholesterolemia - Lasix - monitor urine output, creatinine - daily weights - inhaled bronchodilators - O2 as needed Dr Quinn
[2016-11-22] MEDS: DULoxetine HCL 20 MG CAPSULE.DR (FP) PO SCH (16:30)
[2016-11-22] MEDS: ATORVASTATIN CA 20 MG TABLET (FP) PO SCH (23:44)
[2016-11-22] MEDS: CARVEDILOL 6.25 MG TABLET (FP) PO SCH (23:44)
[2016-11-23 08:13] LABS: BASOPHIL 1.1 % (0-2.0); EOSINOPHIL 1.2 % (0-4.5); MCHC 32.8 g/dl (32.0-35.9); MEAN CELL VOLUME 85.2 fl (80-96); MEAN PLT VOLUME 7.1 fl (7.5-11.1); NEUTROPHILS 75.7 % (42.8-82.8); PLATELET COUNT 331 K/MM3 (134-434); RDW 14.1 % (11.9-15.9); WHITE BLOOD COUNT 7.8 K/mm3 (4.0-10.0)
[2016-11-23] MEDS: TAMSULOSIN HCL 0.4 MG CAP.ER.24H (FP) PO SCH (08:28)
--- NOTE | 2016-11-23 08:44 | PN ---
Progress Note, Physician History of Present Illness: LEG PAIN - Current Medication List Current Medications: Active Medications Acetaminophen (Tylenol -) 650 mg PO Q6H PRN PRN Reason: FEVER OR PAIN Last Admin: 11/23/16 02:30 Dose: 650 mg Aspirin (Ecotrin -) 81 mg PO DAILY [facility] Last Admin: 11/22/16 09:34 Dose: 81 mg Atorvastatin Calcium (Lipitor -) 20 mg PO HS [facility] Last Admin: 11/22/16 23:44 Dose: 20 mg Carvedilol (Coreg -) 6.25 mg PO BID [facility] Last Admin: 11/22/16 23:44 Dose: 6.25 mg Cilostazol (Pletal -) 100 mg PO BID [facility] Last Admin: 11/22/16 23:44 Dose: 100 mg Duloxetine HCl (Cymbalta -) 20 mg PO DAILY [facility] Last Admin: 11/22/16 16:30 Dose: 20 mg Furosemide (Lasix -) 40 mg PO DAILY [facility] Losartan Potassium (Cozaar -) 25 mg PO DAILY [facility] Last Admin: 11/22/16 09:34 Dose: 25 mg Multivitamins/Minerals/Vitamin C (Tab-A-Vit -) 1 tab PO DAILY [facility] Last Admin: 11/22/16 09:35 Dose: 1 tab Potassium Chloride (K-Dur -) 20 meq PO DAILY [facility] Last Admin: 11/22/16 09:34 Dose: 20 meq Ranitidine HCl (Zantac -) 150 mg PO BID [facility] Last Admin: 11/22/16 23:44 Dose: 150 mg Tamsulosin HCl (Flomax -) 0.4 mg PO DAILY@0830 [facility] Last Admin: 11/23/16 08:28 Dose: 0.4 mg - Objective Vital Signs: Vital Signs Temperature 98.2 F 11/23/16 06:18 Pulse Rate 82 11/23/16 06:18 Respiratory Rate 20 11/23/16 06:18 Blood Pressure 97/48 11/23/16 06:18 O2 Sat by Pulse Oximetry (%) 97 11/22/16 21:00 Respiratory: Yes: Regular, CTA Bilaterally Gastrointestinal: Yes: Normal Bowel Sounds, Soft Edema: No Labs: CBC, BMP 11/23/16 06:02 Problem List - Problems (1) Acute on chronic diastolic (congestive) heart failure Assessment/Plan: ON LASIX PO CARDIO ON BOARD Code(s): I50.33 - ACUTE ON CHRONIC DIASTOLIC (CONGESTIVE) HEART FAILURE (2) Hypertension Assessment/Plan: CONTROLLED Code(s): I10 - ESSENTIAL (PRIMARY) HYPERTENSION Qualifiers: Hypertension type: essential hypertension Qualified Code(s): I10 - Essential (primary) hypertension (3) COPD (chronic obstructive pulmonary disease) Assessment/Plan: STABLE Code(s): J44.9 - CHRONIC OBSTRUCTIVE PULMONARY DISEASE, UNSPECIFIED Qualifiers : COPD type: unspecified COPD Qualified Code(s): J44.9 - Chronic obstructive pulmonary disease, unspecified (4) Leg pain Assessment/Plan: H/O PAD ON PLETAL ADD CYMBALTA PT Code(s): M79.606 - PAIN IN LEG, UNSPECIFIED (5) Anemia Assessment/Plan: MONITOR W/U ORDERED Laboratory Tests 11/19/16 11/22/16 11/23/16 12:44 06:07 06:02 Hgb 11.5 L D 9.8 L D 9.2 L Code(s): D64.9 - ANEMIA, UNSPECIFIED
[2016-11-23 09:02] LABS: ALBUMIN 2.2 g/dl (3.4-5.0); ANION GAP 9 (8-16); CALCIUM 8.1 mg/dL (8.5-10.1); CO2 29 mmol/L (21-32)
[2016-11-23 09:41] LABS: BILIRUBIN,TOTAL 0.4 mg/dL (0.2-1.0); GLUCOSE,RANDOM 105 mg/dL (74-106); SGOT/AST 10 U/L (15-37); SGPT/ALT 13 U/L (12-78); TOT PROT 5.5 g/dl (6.4-8.2)
[2016-11-23 09:42] LABS: ALK PHOS 57 U/L (45-117)
[2016-11-23 09:43] LABS: FERRITIN 1046.988 ng/ml (16.4-293.9)
[2016-11-23] MEDS: CILOSTAZOL 50 MG TABLET (FP) PO SCH ×2 (09:51→23:33)
[2016-11-23] MEDS: RANITIDINE HCL 150 MG TABLET (FP) PO SCH ×2 (09:51→23:32)
[2016-11-23] MEDS: CARVEDILOL 6.25 MG TABLET (FP) PO SCH ×2 (09:51→23:33)
[2016-11-23] MEDS: POTASSIUM CHLORIDE TABS 20 MEQ TABLET.ER (FP) PO SCH (09:51)
[2016-11-23] MEDS: DULoxetine HCL 20 MG CAPSULE.DR (FP) PO SCH (09:51)
[2016-11-23] MEDS: ASPIRIN COATED 81 MG TABLET.EC PO SCH (09:51)
[2016-11-23] MEDS: LOSARTAN POTASSIUM 25 MG TABLET PO SCH (09:56)
[2016-11-23] MEDS ORDERED: FUROSEMIDE 40 MG TABLET (FP) PO SCH (10:00)
[2016-11-23] MEDS: MULTIVITAMINS (DAILY MVI) TABLET (FP) PO SCH (10:17)
--- NOTE | 2016-11-23 11:01 | PN ---
Progress Note (short form) - Note Progress Note: Chief Complaint: Events noted, notes reviewed, denies any chest pain or dyspnea , overall no change in status History of Present Illness: Seen and examined on telemetry. Events noted, notes reviewed, denies any chest pain or dyspnea, overall no change in status Echocardiography revealed LVH with low normal LV systolic function, trace to mild MR and TR Medications: Current Medications Acetaminophen (Tylenol -) 650 mg PO Q6H PRN PRN Reason: FEVER OR PAIN Last Admin: 11/23/16 02:30 Dose: 650 mg Aspirin (Ecotrin -) 81 mg PO DAILY [facility] Last Admin: 11/23/16 09:51 Dose: 81 mg Atorvastatin Calcium (Lipitor -) 20 mg PO HS [facility] Last Admin: 11/22/16 23:44 Dose: 20 mg Carvedilol (Coreg -) 6.25 mg PO BID [facility] Last Admin: 11/23/16 09:51 Dose: 6.25 mg Cilostazol (Pletal -) 100 mg PO BID [facility] Last Admin: 11/23/16 09:51 Dose: 100 mg Duloxetine HCl (Cymbalta -) 20 mg PO DAILY [facility] Last Admin: 11/23/16 09:51 Dose: 20 mg Furosemide (Lasix -) 40 mg PO DAILY [facility] Last Admin: 11/23/16 09:56 Dose: 40 mg Losartan Potassium (Cozaar -) 25 mg PO DAILY [facility] Last Admin: 11/23/16 09:56 Dose: 25 mg Multivitamins/Minerals/Vitamin C (Tab-A-Vit -) 1 tab PO DAILY [facility] Last Admin: 11/23/16 10:17 Dose: 1 tab Potassium Chloride (K-Dur -) 20 meq PO DAILY [facility] Last Admin: 11/23/16 09:51 Dose: 20 meq Ranitidine HCl (Zantac -) 150 mg PO BID [facility] Last Admin: 11/23/16 09:51 Dose: 150 mg Tamsulosin HCl (Flomax -) 0.4 mg PO DAILY@0830 [facility] Last Admin: 11/23/16 08:28 Dose: 0.4 mg Review of Systems Constitutional: denies Chills or Fever Respiratory: denies Dyspnea or Cough Cardiovascular: As noted above Gastrointestinal: denies Nausea, Vomiting, Diarrhea or Constipation Genitourinary: No Symptoms Reported Musculoskeletal: No Symptoms Reported Vital Signs: Last Vital Signs Temp Pulse Resp BP Pulse Ox 98.2 F 82 20 97/48 97 11/23/16 06:18 11/23/16 06:18 11/23/16 06:18 11/23/16 06:18 11/22/16 21:00 Neck: Supple Negative JVD Respiratory: Diminished Breath Sounds at the Bases Cardiovascular: S1 S2 Regular Rate and Rhythm Gastrointestinal: Soft Benign Normal Bowel Sounds Ext: No Edema Labs: CBC, BMP 11/23/16 06:02 11/23/16 06:02 Assessment/Plan ASSESSMENT: 1. Acute on chronic Class I-II NYHA classification LV failure related to diastolic LV dysfunction, resolved 2. CAD, angina pectoris 3. HTN, hypotension, asymptomatic 4. Hypercholesterolemia 5. Carotid artery disease 6. 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 COPD 8. CKD 9. Anemia PLAN: 1. Continue Lasix but decrease dosage 2. Continue Coreg 3. Continue Losartan 4. Continue Lipitor 5. Continue ASA 6. Continue Pletal Shelbi Mojica MD
[2016-11-23] MEDS ORDERED: FUROSEMIDE 20 MG TABLET (FP) PO SCH (11:02)
--- NOTE | 2016-11-23 13:47 | PN ---
Progress Note (short form) - Note Progress Note: Resting in NAD on RA. No change in overall condition. Mildly confused. Intake & Output 11/20/16 11/21/16 11/22/16 11/23/16 23:59 23:59 23:59 23:59 Intake Total 490 300 Output Total 300 200 Balance -300 490 100 Last Vital Signs Temp Pulse Resp BP Pulse Ox 97.8 F 94 H 18 125/85 98 11/23/16 10:00 11/23/16 10:00 11/23/16 10:00 11/23/16 10:00 11/23/16 09:00 Active Medications Acetaminophen (Tylenol -) 650 mg PO Q6H PRN PRN Reason: FEVER OR PAIN Last Admin: 11/23/16 02:30 Dose: 650 mg Aspirin (Ecotrin -) 81 mg PO DAILY [facility] Last Admin: 11/23/16 09:51 Dose: 81 mg Atorvastatin Calcium (Lipitor -) 20 mg PO HS [facility] Last Admin: 11/22/16 23:44 Dose: 20 mg Carvedilol (Coreg -) 6.25 mg PO BID [facility] Cilostazol (Pletal -) 100 mg PO BID [facility] Last Admin: 11/23/16 09:51 Dose: 100 mg Duloxetine HCl (Cymbalta -) 20 mg PO DAILY [facility] Last Admin: 11/23/16 09:51 Dose: 20 mg Furosemide (Lasix -) 20 mg PO DAILY [facility] Losartan Potassium (Cozaar -) 25 mg PO DAILY [facility] Multivitamins/Minerals/Vitamin C (Tab-A-Vit -) 1 tab PO DAILY [facility] Last Admin: 11/23/16 10:17 Dose: 1 tab Potassium Chloride (K-Dur -) 20 meq PO DAILY [facility] Last Admin: 11/23/16 09:51 Dose: 20 meq Ranitidine HCl (Zantac -) 150 mg PO BID [facility] Last Admin: 11/23/16 09:51 Dose: 150 mg Tamsulosin HCl (Flomax -) 0.4 mg PO DAILY@0830 [facility] Last Admin: 11/23/16 08:28 Dose: 0.4 mg Constitutional: Yes: NAD, Thin Eyes: Yes: WNL HENT: Yes: WNL Neck: Yes: Supple Cardiovascular: Yes: Regular Rate and Rhythm, S1, S2 Respiratory: Yes: few basilar rhonchi Gastrointestinal: Yes: Normal Bowel Sounds, Soft Extremities: Yes: WNL Edema: Yes Laboratory Results - last 24 hr 11/23/16 11/23/16 06:02 06:02 WBC 7.8 RBC 3.27 L Hgb 9.2 L Hct 27.9 L MCV 85.2 MCHC 32.8 RDW 14.1 Plt Count 331 MPV 7.1 L Neutrophils % 75.7 Lymphocytes % 13.8 D Monocytes % 8.2 Eosinophils % 1.2 D Basophils % 1.1 Sodium 140 Potassium 3.9 Chloride 102 Carbon Dioxide 29 Anion Gap 9 BUN 21 H Creatinine 1.0 Creat Clearance w eGFR > 60 Random Glucose 105 Calcium 8.1 L Ferritin 1046.988 H Total Bilirubin 0.4 D AST 10 L ALT 13 D Alkaline Phosphatase 57 Total Protein 5.5 L Albumin 2.2 L Vitamin B12 422 Assessment/Plan Problem List - Problems (1) Acute on chronic diastolic (congestive) heart failure Code(s): I50.33 - ACUTE ON CHRONIC DIASTOLIC (CONGESTIVE) HEART FAILURE (2) Pulmonary hypertension Code(s): I27.2 - OTHER SECONDARY PULMONARY HYPERTENSION (3) COPD (chronic obstructive pulmonary disease) Code(s): J44.9 - CHRONIC OBSTRUCTIVE PULMONARY DISEASE, UNSPECIFIED (4) Hypertension Code(s): I10 - ESSENTIAL (PRIMARY) HYPERTENSION (5) Hypercholesteremia Code(s): E78.00 - PURE HYPERCHOLESTEROLEMIA, UNSPECIFIED Assessment/Plan Acute on Chronic Diastolic Heart Failure Pulmonary HTN COPD HTN Hypercholesterolemia - Lasix - monitor urine output, creatinine - daily weights - inhaled bronchodilators - O2 as needed Dr Quinn
[2016-11-23] MEDS: ATORVASTATIN CA 20 MG TABLET (FP) PO SCH (23:32)
[2016-11-24 06:06] LABS: SERUM IRON 20 ug/dL (38-169); TOTAL IRON BINDING CAPACITY 146 ug/dL (250-450); UIBC 126 ug/dL (111-343)
--- NOTE | 2016-11-24 06:25 | PN ---
Progress Note, Physician - Current Medication List Current Medications: Active Medications Acetaminophen (Tylenol -) 650 mg PO Q6H PRN PRN Reason: FEVER OR PAIN Last Admin: 11/23/16 02:30 Dose: 650 mg Aspirin (Ecotrin -) 81 mg PO DAILY [facility] Last Admin: 11/23/16 09:51 Dose: 81 mg Atorvastatin Calcium (Lipitor -) 20 mg PO HS [facility] Last Admin: 11/23/16 23:32 Dose: 20 mg Carvedilol (Coreg -) 6.25 mg PO BID [facility] Last Admin: 11/23/16 23:33 Dose: 6.25 mg Cilostazol (Pletal -) 100 mg PO BID [facility] Last Admin: 11/23/16 23:33 Dose: 100 mg Duloxetine HCl (Cymbalta -) 20 mg PO DAILY [facility] Last Admin: 11/23/16 09:51 Dose: 20 mg Furosemide (Lasix -) 20 mg PO DAILY [facility] Losartan Potassium (Cozaar -) 25 mg PO DAILY [facility] Multivitamins/Minerals/Vitamin C (Tab-A-Vit -) 1 tab PO DAILY [facility] Last Admin: 11/23/16 10:17 Dose: 1 tab Potassium Chloride (K-Dur -) 20 meq PO DAILY [facility] Last Admin: 11/23/16 09:51 Dose: 20 meq Ranitidine HCl (Zantac -) 150 mg PO BID [facility] Last Admin: 11/23/16 23:32 Dose: 150 mg Tamsulosin HCl (Flomax -) 0.4 mg PO DAILY@0830 [facility] Last Admin: 11/23/16 08:28 Dose: 0.4 mg - Objective Vital Signs: Vital Signs Temperature 98 F 11/24/16 02:00 Pulse Rate 89 11/24/16 02:00 Respiratory Rate 20 11/24/16 02:00 Blood Pressure 140/70 11/24/16 02:00 O2 Sat by Pulse Oximetry (%) 98 11/23/16 21:00 Neck: Yes: WNL Cardiovascular: Yes: WNL Respiratory: Yes: WNL Gastrointestinal: Yes: WNL Labs: CBC, BMP 11/23/16 06:02 11/23/16 06:02 Problem List - Problems (1) Acute on chronic diastolic (congestive) heart failure Code(s): I50.33 - ACUTE ON CHRONIC DIASTOLIC (CONGESTIVE) HEART FAILURE (2) Anemia Code(s): D64.9 - ANEMIA, UNSPECIFIED (3) CHF exacerbation Code(s): I50.9 - HEART FAILURE, UNSPECIFIED Qualifiers: Congestive heart failure type: unspecified congestive heart failure type Qualified Code(s): I50.9 - Heart failure, unspecified (4) COPD (chronic obstructive pulmonary disease) Code(s): J44.9 - CHRONIC OBSTRUCTIVE PULMONARY DISEASE, UNSPECIFIED Qualifiers : COPD type: unspecified COPD Qualified Code(s): J44.9 - Chronic obstructive pulmonary disease, unspecified Assessment/Plan (1) Acute on chronic diastolic (congestive) heart failure Assessment/Plan: ON LASIX PO CARDIO ON BOARD Code(s): I50.33 - ACUTE ON CHRONIC DIASTOLIC (CONGESTIVE) HEART FAILURE (2) Hypertension Assessment/Plan: CONTROLLED Code(s): I10 - ESSENTIAL (PRIMARY) HYPERTENSION Qualifiers: Hypertension type: essential hypertension Qualified Code(s): I10 - Essential (primary) hypertension (3) COPD (chronic obstructive pulmonary disease) Assessment/Plan: STABLE Code(s): J44.9 - CHRONIC OBSTRUCTIVE PULMONARY DISEASE, UNSPECIFIED Qualifiers : COPD type: unspecified COPD Qualified Code(s): J44.9 - Chronic obstructive pulmonary disease, unspecified (4) Leg pain Assessment/Plan: H/O PAD ON PLETAL ADD CYMBALTA PT Code(s): M79.606 - PAIN IN LEG, UNSPECIFIED (5) Anemia Assessment/Plan: MONITOR W/U ORDERED GI Laboratory Tests 11/19/16 11/22/16 11/23/16 12:44 06:07 06:02 Hgb 11.5 L D 9.8 L D 9.2 L Code(s): D64.9 - ANEMIA, UNSPECIFIED SEE DISCHARGE SUMMARY (DATED 11/26) PATIENT DISCHARGED 11/24 PASTOR LYLE
[2016-11-24] MEDS: TAMSULOSIN HCL 0.4 MG CAP.ER.24H (FP) PO SCH (09:06)
[2016-11-24] MEDS: MULTIVITAMINS (DAILY MVI) TABLET (FP) PO SCH (09:06)
[2016-11-24] MEDS: CILOSTAZOL 50 MG TABLET (FP) PO SCH (09:06)
[2016-11-24] MEDS: DULoxetine HCL 20 MG CAPSULE.DR (FP) PO SCH (09:06)
[2016-11-24] MEDS: RANITIDINE HCL 150 MG TABLET (FP) PO SCH (09:06)
[2016-11-24] MEDS: POTASSIUM CHLORIDE TABS 20 MEQ TABLET.ER (FP) PO SCH (09:06)
[2016-11-24] MEDS: ASPIRIN COATED 81 MG TABLET.EC PO SCH (09:06)
[2016-11-24] MEDS: CARVEDILOL 6.25 MG TABLET (FP) PO SCH (09:06)
[2016-11-24] MEDS ORDERED: LOSARTAN POTASSIUM 25 MG TABLET PO SCH (10:00)
--- NOTE | 2016-11-24 11:25 | PN ---
Progress Note, Physician History of Present Illness: pulmonary alert,feeling better,-sob,-cp,-cough - Current Medication List Current Medications: Active Medications Acetaminophen (Tylenol -) 650 mg PO Q6H PRN PRN Reason: FEVER OR PAIN Last Admin: 11/23/16 02:30 Dose: 650 mg Aspirin (Ecotrin -) 81 mg PO DAILY [facility] Last Admin: 11/24/16 09:06 Dose: 81 mg Atorvastatin Calcium (Lipitor -) 20 mg PO HS [facility] Last Admin: 11/23/16 23:32 Dose: 20 mg Carvedilol (Coreg -) 6.25 mg PO BID [facility] Last Admin: 11/24/16 09:06 Dose: 6.25 mg Cilostazol (Pletal -) 100 mg PO BID [facility] Last Admin: 11/24/16 09:06 Dose: 100 mg Duloxetine HCl (Cymbalta -) 20 mg PO DAILY [facility] Last Admin: 11/24/16 09:06 Dose: 20 mg Furosemide (Lasix -) 20 mg PO DAILY [facility] Last Admin: 11/24/16 09:06 Dose: 20 mg Losartan Potassium (Cozaar -) 25 mg PO DAILY [facility] Last Admin: 11/24/16 09:06 Dose: 25 mg Multivitamins/Minerals/Vitamin C (Tab-A-Vit -) 1 tab PO DAILY [facility] Last Admin: 11/24/16 09:06 Dose: 1 tab Potassium Chloride (K-Dur -) 20 meq PO DAILY [facility] Last Admin: 11/24/16 09:06 Dose: 20 meq Ranitidine HCl (Zantac -) 150 mg PO BID [facility] Last Admin: 11/24/16 09:06 Dose: 150 mg Tamsulosin HCl (Flomax -) 0.4 mg PO DAILY@0830 [facility] Last Admin: 11/24/16 09:06 Dose: 0.4 mg - Objective Vital Signs: Vital Signs Temperature 97.6 F 11/24/16 06:00 Pulse Rate 78 11/24/16 06:00 Respiratory Rate 20 11/24/16 06:00 Blood Pressure 151/77 11/24/16 06:00 O2 Sat by Pulse Oximetry (%) 98 11/23/16 21:00 Constitutional: Yes: Calm, Thin Eyes: Yes: WNL HENT: Yes: WNL Neck: Yes: WNL Cardiovascular: Yes: Regular Rate and Rhythm, S1, S2 Respiratory: Yes: Rales (few bibasilar crackles) Gastrointestinal: Yes: Normal Bowel Sounds, Soft Extremities: Yes: WNL Edema: No Labs: CBC, BMP Assessment/Plan Problem List - Problems (1) Acute on chronic diastolic (congestive) heart failure Code(s): I50.33 - ACUTE ON CHRONIC DIASTOLIC (CONGESTIVE) HEART FAILURE (2) Pulmonary hypertension Code(s): I27.2 - OTHER SECONDARY PULMONARY HYPERTENSION (3) COPD (chronic obstructive pulmonary disease) Code(s): J44.9 - CHRONIC OBSTRUCTIVE PULMONARY DISEASE, UNSPECIFIED (4) Hypertension Code(s): I10 - ESSENTIAL (PRIMARY) HYPERTENSION (5) Hypercholesteremia Code(s): E78.00 - PURE HYPERCHOLESTEROLEMIA, UNSPECIFIED Assessment/Plan Acute on Chronic Diastolic Heart Failure Pulmonary HTN COPD HTN Hypercholesterolemia - lasix - daily weights - inhaled bronchodilators - O2 as needed DR RITCHIE
[2016-11-24 13:14] VITALS: BP 142/68; PULSE 86; TEMP 98
--- NOTE | 2016-11-24 15:00 | PN ---
Progress Note, Physician Chief Complaint: Not in distress History of Present Illness: Patient was seen and examined. Awake and alert. Chart was reviewed Denies chest pain, SOB or palpitations - Current Medication List Current Medications: Active Medications Acetaminophen (Tylenol -) 650 mg PO Q6H PRN PRN Reason: FEVER OR PAIN Last Admin: 11/23/16 02:30 Dose: 650 mg Aspirin (Ecotrin -) 81 mg PO DAILY [facility] Last Admin: 11/24/16 09:06 Dose: 81 mg Atorvastatin Calcium (Lipitor -) 20 mg PO HS [facility] Last Admin: 11/23/16 23:32 Dose: 20 mg Carvedilol (Coreg -) 6.25 mg PO BID [facility] Last Admin: 11/24/16 09:06 Dose: 6.25 mg Cilostazol (Pletal -) 100 mg PO BID [facility] Last Admin: 11/24/16 09:06 Dose: 100 mg Duloxetine HCl (Cymbalta -) 20 mg PO DAILY [facility] Last Admin: 11/24/16 09:06 Dose: 20 mg Furosemide (Lasix -) 20 mg PO DAILY [facility] Last Admin: 11/24/16 09:06 Dose: 20 mg Losartan Potassium (Cozaar -) 25 mg PO DAILY [facility] Last Admin: 11/24/16 09:06 Dose: 25 mg Multivitamins/Minerals/Vitamin C (Tab-A-Vit -) 1 tab PO DAILY [facility] Last Admin: 11/24/16 09:06 Dose: 1 tab Potassium Chloride (K-Dur -) 20 meq PO DAILY [facility] Last Admin: 11/24/16 09:06 Dose: 20 meq Ranitidine HCl (Zantac -) 150 mg PO BID [facility] Last Admin: 11/24/16 09:06 Dose: 150 mg Tamsulosin HCl (Flomax -) 0.4 mg PO DAILY@0830 [facility] Last Admin: 11/24/16 09:06 Dose: 0.4 mg - Objective Vital Signs: Vital Signs Temperature 98 F 11/24/16 10:00 Pulse Rate 86 11/24/16 10:00 Respiratory Rate 18 11/24/16 10:00 Blood Pressure 142/68 11/24/16 10:00 O2 Sat by Pulse Oximetry (%) 98 11/24/16 09:00 HENT: Yes: Atraumatic Neck: Yes: Supple Cardiovascular: Yes: Regular Rate and Rhythm, S1, S2 Respiratory: Yes: Diminished Gastrointestinal: Yes: Normal Bowel Sounds, Soft. No: Tenderness Edema: No Additional Findings/Remarks: - Review of Systems Constitutional: denies: Chills, Fever Cardiovascular: reports: Shortness of Breath. denies: Chest Pain, Palpitations Respiratory: reports: SOB. denies: Cough, Hemoptysis, Orthopnea, PND Gastrointestinal: denies: Abdominal Pain, Constipation, Diarrhea, Melena, Nausea , Rectal Bleeding, Vomiting Neurological: denies: Dizziness, Headache, Seizure, Syncope Labs: CBC, BMP 11/23/16 06:02 11/23/16 06:02 Problem List - Problems (1) Acute on chronic diastolic (congestive) heart failure Code(s): I50.33 - ACUTE ON CHRONIC DIASTOLIC (CONGESTIVE) HEART FAILURE (2) Hypercholesteremia Code(s): E78.00 - PURE HYPERCHOLESTEROLEMIA, UNSPECIFIED (3) Hypertension Code(s): I10 - ESSENTIAL (PRIMARY) HYPERTENSION Qualifiers: Hypertension type: essential hypertension Qualified Code(s): I10 - Essential (primary) hypertension (4) COPD (chronic obstructive pulmonary disease) Code(s): J44.9 - CHRONIC OBSTRUCTIVE PULMONARY DISEASE, UNSPECIFIED Qualifiers : COPD type: unspecified COPD Qualified Code(s): J44.9 - Chronic obstructive pulmonary disease, unspecified Assessment/Plan 1. Clinical presentation compatible with acute on chronic LV diastolic failure - Class II NYHA classification heart failure 2. COPD with history of exacerbation 3. HTN 4. Hypercholesterolemia 5. 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 Carotid artery disease PLAN: 1. Continue Lasix IV and monitor I/O, daily weight, renal function and electrolytes 2. Continue Atenolol and Losartan 3. Continue Lipitor 4. Continue ASA and Pletal Further plans are to follow Onofre Oseguera MD
--- NOTE | 2016-11-24 17:03 | PN ---
Progress Note (short form) - Note Progress Note: Covering for Dr. Rios. He was called to see patient however Mr. Harris was discharged prior to consult being able to be performed
--- NOTE | 2016-11-26 19:57 | DS ---
Physical Examination Vital Signs: Vital Signs Temperature 98 F 11/24/16 10:00 Pulse Rate 86 11/24/16 10:00 Respiratory Rate 18 11/24/16 10:00 Blood Pressure 142/68 11/24/16 10:00 O2 Sat by Pulse Oximetry (%) 98 11/24/16 09:00 Neck: Yes: WNL Cardiovascular: Yes: WNL Respiratory: Yes: WNL Gastrointestinal: Yes: WNL Labs: CBC, BMP 11/23/16 06:02 11/23/16 06:02 Discharge Summary Reason For Visit: ACUTE ON CHRONIC CHF Hospital Course: (1) Acute on chronic diastolic (congestive) heart failure Assessment/Plan: ON LASIX PO CARDIO ON BOARD Code(s): I50.33 - ACUTE ON CHRONIC DIASTOLIC (CONGESTIVE) HEART FAILURE (2) Hypertension Assessment/Plan: CONTROLLED Code(s): I10 - ESSENTIAL (PRIMARY) HYPERTENSION Qualifiers: Hypertension type: essential hypertension Qualified Code(s): I10 - Essential (primary) hypertension (3) COPD (chronic obstructive pulmonary disease) Assessment/Plan: STABLE Code(s): J44.9 - CHRONIC OBSTRUCTIVE PULMONARY DISEASE, UNSPECIFIED Qualifiers : COPD type: unspecified COPD Qualified Code(s): J44.9 - Chronic obstructive pulmonary disease, unspecified (4) Leg pain Assessment/Plan: H/O PAD ON PLETAL ADD CYMBALTA PT Code(s): M79.606 - PAIN IN LEG, UNSPECIFIED (5) Anemia Assessment/Plan: MONITOR W/U ORDERED GI ON CASE Code(s): D64.9 - ANEMIA, UNSPECIFIED 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 Condition: Stable - Instructions Referrals: Tay Wu MD [Primary Care Provider] - Disposition: [facility] - Home Medications Comprehensive Discharge Medication List: Ambulatory Orders Aspirin [ASA -] 81 mg PO DAILY 11/19/16 Cilostazol 100 mg PO BID 11/19/16 Colchicine [Colcrys] 0.6 mg PO DAILY 11/19/16 Famotidine 20 mg PO DAILY 11/19/16 Furosemide [Lasix] 40 mg PO DAILY 11/19/16 Loperamide HCl [Imodium -] 2 mg PO DAILY 11/19/16 Losartan Potassium [Cozaar] 25 mg PO DAILY 11/19/16 Multivitamin [Poly-Vitamin] 1 each PO DAILY 11/19/16 Potassium Chloride [Klor-Con M20] 20 meq PO DAILY 11/19/16 Simvastatin [Zocor -] 40 mg PO HS 11/19/16 Tamsulosin HCl [Flomax] 0.4 mg PO DAILY 11/19/16 Carvedilol [Coreg] 6.25 mg PO BID #0 tablet 11/24/16 Duloxetine HCl [Cymbalta] 20 mg PO DAILY #0 capsule. 11/24/16
== END 2016-11-24 15:26 | DRG 293 ==
LOC: JER 11:37 → JERBED 14:25 → J7W 15:25 → J4W 11-20 15:45
PROVIDERS: ADMIT Family Medicine; ATTEND Family Medicine
DX: I11.0 Hypertensive heart disease with heart failure (principal); I50.33 Acute on chronic diastolic (congestive) heart failure; E78.00 Pure hypercholesterolemia, unspecified; J44.9 Chronic obstructive pulmonary disease, unspecified; Z85.46 Personal history of malignant neoplasm of prostate; R60.0 Localized edema; I27.2 Other secondary pulmonary hypertension; I25.119 Atherosclerotic heart disease of native coronary artery with unspecified angina pectoris; Z87.891 Personal history of nicotine dependence; R53.83 Other fatigue; I73.9 Peripheral vascular disease, unspecified; R26.81 Unsteadiness on feet; D64.9 Anemia, unspecified
CPT/HCPCS: 36415; 71010-TC; 80053; 81003; 81015; 82550; 82607; 82728; 83540; 83550; 83880; 84484; 85025; 85027; 93005; 93010; 93306-TC; 97116-GP; 97162-PG; 99285-25

== ENCOUNTER 2016-12-31 21:51 | Inpatient (IN) | payer OTHER, BC ==
[2016-12-31] MEDS ORDERED: methylPREDNISolone NA SUCC 125 MG/2 ML VIAL IVPB ONE (22:02)
[2016-12-31] MEDS ORDERED: ALBUTEROL SO4 0.083% IH SOL 2.5 MG/3 ML VIAL.NEB. NEB ONE ×2 (22:02→22:27)
--- NOTE | 2016-12-31 22:26 | PDOC ---
History of Present Illness - General History Source: Patient, EMS, Family, Old Records Exam Limitations: No Limitations - History of Present Illness Initial Comments: 12/31/16 23:22 The patient is a 86 year old male brought via EMS from home and presenting with his son, with a significant past medical history of COPD, Emphysema, HLD, CVA, peripheral arterial disease, gout, prostate CA, BPH, HTN, CHF, who presents to the emergency department with shortness of breath and cough onset today. The patient was brought into the ED on C-Pap. The son describes the cough as productive of a liquidity brown sputum. The patient was recently discharged from [facility] last week where he was for rehabilitation. The patient denies chest pain, headache and dizziness. Denies fever, chills, nausea, vomit, diarrhea and constipation. Denies dysuria, frequency, urgency and hematuria. Allergies: Plavix Past surgical history: Right carotid end Social history: No alcohol, tobacco or drug use reported PMD - Dr. Tay Wu <Ceferino Starr - Last Filed: 12/31/16 23:21> - General History Source: Patient, Family Exam Limitations: No Limitations <Shane Escoto - Last Filed: 12/31/16 23:49> - General Chief Complaint: Respiratory Distress Stated Complaint: DIFFICULTY BREATHING Time Seen by Provider: 12/31/16 21:57 Past History <Ceferino Starr - Last Filed: 12/31/16 23:21> - Past Medical History Anemia: No Asthma: Yes Cancer: Yes (prostate cancer) Cardiac Disorders: Yes (CHF, angina, ASHD, angioplasty) CVA: Yes COPD: Yes CHF: No Dementia: No Diabetes: (borderline) GI Disorders: No Disorders: No HTN: Yes Hypercholesterolemia: Yes Liver Disease: No Suicide Attempt (Hx): No Seizures: No Thyroid Disease: No - Surgical History Abdominal Surgery: No Appendectomy: No Cardiac Surgery: Yes (right carotid end) Cholecystectomy: No Lung Surgery: No Neurologic Surgery: No Orthopedic Surgery: No - Immunization History Immunization Up to Date: Yes - Psycho/Social/Smoking Cessation Hx Anxiety: No Suicidal Ideation: No Smoking Status: No Smoking History: Unknown if ever smoked Have you smoked in the past 12 months: No Number of Cigarettes Smoked Daily: 0 If you are a former smoker, when did you quit?: 1984 Information on smoking cessation initiated: No Hx Alcohol Use: No Drug/Substance Use Hx: No Substance Use Type: None Hx Substance Use Treatment: No <Shane Escoto - Last Filed: 12/31/16 23:49> - Past Medical History Allergies/Adverse Reactions: Allergies Allergy/AdvReac Type Severity Reaction Status Date / Time clopidogrel bisulfate Allergy Verified 12/31/16 21:57 [From Plavix] Home Medications: Ambulatory Orders Aspirin [ASA -] 81 mg PO DAILY 11/19/16 Cilostazol 100 mg PO BID 11/19/16 Colchicine [Colcrys] 0.6 mg PO DAILY 11/19/16 Furosemide [Lasix] 40 mg PO DAILY 11/19/16 Losartan Potassium [Cozaar] 25 mg PO DAILY 11/19/16 Simvastatin [Zocor -] 40 mg PO HS 11/19/16 Tamsulosin HCl [Flomax] 0.4 mg PO DAILY 11/19/16 Carvedilol [Coreg] 6.25 mg PO BID #0 tablet 11/24/16 Duloxetine HCl [Cymbalta] 20 mg PO DAILY #0 capsule. 11/24/16 Potassium Chloride [K-Dur -] 20 meq PO DAILY 12/31/16 Review of Systems - Review of Systems Able to Perform ROS?: Yes Comments:: 12/31/16 23:21 GENERAL/CONSTITUTIONAL: No fever or chills. No weakness. HEAD, EYES, EARS, NOSE AND THROAT: No change in vision. No ear pain or discharge. No sore throat. CARDIOVASCULAR: (+) Shortness of breath. No chest pain RESPIRATORY: No cough, wheezing, or hemoptysis. GASTROINTESTINAL: No nausea, vomiting, diarrhea or constipation. GENITOURINARY: No dysuria, frequency, or change in urination. MUSCULOSKELETAL: No joint or muscle swelling or pain. No neck or back pain. SKIN: No rash NEUROLOGIC: No headache, vertigo, loss of consciousness, or change in strength/ sensation. ENDOCRINE: No increased thirst. No abnormal weight change HEMATOLOGIC/LYMPHATIC: No anemia, easy bleeding, or history of blood clots. ALLERGIC/IMMUNOLOGIC: No hives or skin allergy. <Ceferino Starr - Last Filed: 12/31/16 23:21> *Physical Exam - Vital Signs Last Vital Signs Temp Pulse Resp BP Pulse Ox 138 H 20 140/86 95 12/31/16 22:28 12/31/16 21:57 12/31/16 21:57 12/31/16 22:28 - Physical Exam Comments: 12/31/16 23:22 GENERAL: Awake, alert, and fully oriented. HEAD: No signs of trauma, normocephalic, atraumatic EYES: PERRLA, EOMI, sclera anicteric, conjunctiva clear ENT: Auricles normal inspection, hearing grossly normal, nares patent, oropharynx clear without exudates. Moist mucosa NECK: Normal ROM, supple, no lymphadenopathy, JVD, or masses LUNGS: (+) tachypnic to mid 20s, on BiPap machine, diminished breath sounds. HEART: (+) Tachycardia. Normal S1 and S2, no murmurs, rubs or gallops, peripheral pulses normal and equal bilaterally. ABDOMEN: Soft, nontender, normoactive bowel sounds. No guarding, no rebound. No masses EXTREMITIES: Normal inspection, Normal range of motion, no edema. No clubbing or cyanosis. NEUROLOGICAL: Cranial nerves II through XII grossly intact. Normal speech, normal gait, no focal sensorimotor deficits SKIN: Warm, Dry, normal turgor, no rashes or lesions noted. <Ceferino Starr - Last Filed: 12/31/16 23:21> - Vital Signs Last Vital Signs Temp Pulse Resp BP Pulse Ox 142 H 20 140/86 80 L 12/31/16 21:57 12/31/16 21:57 12/31/16 21:57 12/31/16 21:57 <Shane Escoto - Last Filed: 12/31/16 23:49> Heart Score/ECG Review #1 ECG reviewed & interpreted by me at: 22:10 12/31/16 22:26 NSR 139 with PVCs, RBBB, no std/austen, QTC 444 msec <Shane Escoto - Last Filed: 12/31/16 23:49> ED Treatment Course - LABORATORY CBC & Chemistry Diagram: 12/31/16 22:25 12/31/16 22:25 - ADDITIONAL ORDERS Additional order review: Laboratory Results 12/31/16 12/31/16 22:25 22:25 INR 1.11 PTT (Actin FS) 30.4 Sodium 136 Potassium 3.7 Chloride 94 L Carbon Dioxide 22 D Anion Gap 20 H BUN 46 H D Creatinine 3.3 H D Creat Clearance w eGFR 17.86 Random Glucose 126 H Calcium 8.5 Phosphorus 4.4 Magnesium 1.6 L Total Bilirubin 0.5 D AST 23 D ALT 18 D Alkaline Phosphatase 81 D Creatine Kinase 196 D Troponin I 0.02 B-Natriuretic Peptide 892.51 H Total Protein 6.7 D Albumin 3.0 L D 12/31/16 22:25 RBC 4.42 D MCV 83.2 MCHC 31.9 L RDW 16.0 H D MPV 7.9 D Neutrophils % 74.0 Lymphocytes % 4.0 L D Monocytes % 6.0 - Medications Given in the ED: ED Medications Discontinued Medications Generic Name Dose Route Start Last Admin Trade Name Freq PRN Reason Stop Dose Admin Methylprednisolone Sodium Succinate 125 mg 12/31/16 22:02 12/31/16 22:30 Solu-Medrol - IVPB 12/31/16 22:03 125 mg ONCE ONE Administration <Ceferino Starr - Last Filed: 12/31/16 23:21> - LABORATORY CBC & Chemistry Diagram: 12/31/16 22:25 12/31/16 22:25 - RADIOLOGY Radiology Studies Ordered: Category Date Time Status CHEST X-RAY PORTABLE* [RAD] Stat Radiology 12/31/16 22:02 Ordered <Shane Escoto - Last Filed: 12/31/16 23:49> Medical Decision Making - Critical Care Time Total Critical Care Time (minutes): 45 Critical Care Statement: The care of this patient involved high complexity decision making to prevent further life threatening deterioration of the patient 's condition and/or to evalute & treat vital organ system(s) failure or risk of failure. - Medical Decision Making 12/31/16 22:25 A portion of this note was documented by scribe services under my direction. I have reviewed the details of the note, within reason, and agree with the documentation with the following case summary and management plan written by me. Patient treated in the ED. Nursing notes are reviewed and incorporated into the medical decision-making. Vital signs reviewed. Peripheral IV access obtained by the nurse, laboratory studies are drawn and sent, reviewed and interpreted by myself. Vital Signs Temp Pulse Resp BP Pulse Ox 142 H 20 140/86 80 L 12/31/16 21:57 12/31/16 21:57 12/31/16 21:57 12/31/16 21:57 86 year old male with past medical history of congestive heart failure, hypertension, COPD, peripheral arterial disease, anemia, gout brought in by EMS for shortness of breath and cough. The patient was recently discharged approximately a week ago from [facility]. Today, the patient started developing difficulty breathing and a darkish color sputum. No fevers or chills. Patient denies chest pain. EMS was activated and noticed that his O2 saturation was 70% on room air. Patient was given nebulizers and placed on CPAP. The patient's breathing has improved dramatically with the CPAP. He was switched are BiPAP. Patient's lung sounds appear diminished with no obvious crackles or wheezing. However, given the story, differential includes CHF versus COPD versus pneumonia. We'll obtain labs, cultures, troponin, BNP, chest x-ray and admit the patient to the hospital for further evaluation. 12/31/16 23:43 CBC, BMP 12/31/16 22:25 12/31/16 22:25 CMP Sodium 136 mmol/L (136-145) 12/31/16 22:25 Potassium 3.7 mmol/L (3.5-5.1) 12/31/16 22:25 Chloride 94 mmol/L (98-107) L 12/31/16 22:25 Carbon Dioxide 22 mmol/L (21-32) D 12/31/16 22:25 Anion Gap 20 (8-16) H 12/31/16 22:25 BUN 46 mg/dL (7-18) H D 12/31/16 22:25 Creatinine 3.3 mg/dL (0.7-1.3) H D 12/31/16 22:25 Creat Clearance w eGFR 17.86 (>60) 12/31/16 22:25 Random Glucose 126 mg/dL (74-106) H 12/31/16 22:25 Lactic Acid 2.272 mmol/L (0.4-2.0) H* 12/31/16 22:25 Calcium 8.5 mg/dL (8.5-10.1) 12/31/16 22:25 Phosphorus 4.4 mg/dL (2.5-4.9) 12/31/16 22:25 Magnesium 1.6 mg/dL (1.8-2.4) L 12/31/16 22:25 Total Bilirubin 0.5 mg/dL (0.2-1.0) D 12/31/16 22:25 AST 23 U/L (15-37) D 12/31/16 22:25 ALT 18 U/L (12-78) D 12/31/16 22:25 Alkaline Phosphatase 81 U/L (45-117) D 12/31/16 22:25 Creatine Kinase 196 IU/L (39-308) D 12/31/16 22:25 Creatine Kinase Index 2.6 % (0.0-5.0) 12/31/16 22:25 CK-MB (CK-2) 5.013 ng/ml (0.5-3.6) H 12/31/16:25 CK-MB (CK-2) Rel Index Cancelled 12/31/16:25 Troponin I 0.02 ng/ml (0.00-0.05) 12/31/16:25 B-Natriuretic Peptide 892.51 pg/ml (5-450) H 12/31/16 22:25 Total Protein 6.7 g/dl (6.4-8.2) D 12/31/16 22:25 Albumin 3.0 g/dl (3.4-5.0) L D 12/31/16 22:25 Chest xray reviewed, pending official read. No pleural effusions or obvious infiltrates. The patient is much more comfortable on the BiPAP machine and breathing with less respiratory distress. However, laboratory data suggest that the patient likely has pneumonia. The patient has white count of 16.4 and elevated bands of 16% with an anion gap of 20. Lactic acid is elevated at 2.3 which suggest sepsis. Given that the patient was recently in a [facility], vancomycin, Zosyn , azithromycin was initiated. Patient also noted have acute renal sufficiency likely in the setting of sepsis. 1 L of IV fluids was ordered despite BNP being elevated 900. The patient is tachycardic which I suspect is likely secondary to dehydration. Given the patient's overall clinical picture and the patient's requirement for BiPAP, decision was made to admit the patient to the ICU. Case is discussed with ICU nurse practitioner Terry who accepts the patient. We'll admit this patient to Dr. Wu's service. <Shane Escoto - Last Filed: 12/31/16 23:49> *DC/Admit/Observation/Transfer - Attestations Scribe Attestion: 12/31/16 23:24 Documentation prepared by Ceferino Starr, acting as medical aide for Shane Escoto MD <Ceferino Starr - Last Filed: 12/31/16 23:21> - Discharge Dispostion Admit: Yes <Shane Escoto - Last Filed: 12/31/16 23:49> Diagnosis at time of Disposition: Acute renal insufficiency Pneumonia Qualifiers: Pneumonia type: due to unspecified organism Laterality: unspecified laterality Lung location: unspecified part of lung Qualified Code(s): J18.9 - Pneumonia, unspecified organism Sepsis Qualifiers: Sepsis type: sepsis due to unspecified organism Qualified Code(s): A41.9 - Sepsis, unspecified organism - Discharge Dispostion Condition at time of disposition: Guarded - Referrals Referrals: Tay Wu MD [Primary Care Provider] -
[2016-12-31] MEDS ORDERED: methylPREDNISolone NA SUCC 1000 MG/8 ML VIAL ONE (22:27)
[2016-12-31 22:40] LABS: MCH 26.5 pg (25.7-33.7); MCHC 31.9 g/dl (32.0-35.9); MEAN CELL VOLUME 83.2 fl (80-96); MEAN PLT VOLUME 7.9 fl (7.5-11.1); PLATELET COUNT 327 K/MM3 (134-434); WHITE BLOOD COUNT 16.4 K/mm3 (4.0-10.0)
[2016-12-31 22:53] LABS: INR 1.11 (0.82-1.09); PROTHROMBIN TIME (PATIENT) 12.2 SEC (9.98-11.88)
[2016-12-31 22:56] LABS: ACTIVATED PTT 30.4 SECONDS (26.9-34.4)
[2016-12-31] MEDS ORDERED: AZITHROMYCIN IVPB 500 MG in DEXTROSE 5%-WATER - 250 ML IVPB ONE (22:56)
[2016-12-31 23:09] LABS: PLATELET COMMENT2 RARE GIANT PLTS; PLATELET ESTIMATE ADEQUATE (NORMAL)
[2016-12-31] MEDS ORDERED: ACETAMINOPHEN 325 MG TABLET (FP) PO PRN (23:10)
[2016-12-31 23:13] LABS: BILIRUBIN,TOTAL 0.5 mg/dL (0.2-1.0); CALCIUM 8.5 mg/dL (8.5-10.1); COCKROFT - GAULT 12.16; CREATININE 3.3 mg/dL (0.7-1.3); MAGNESIUM 1.6 mg/dL (1.8-2.4); PHOSPHOROUS 4.4 mg/dL (2.5-4.9); TOT PROT 6.7 g/dl (6.4-8.2)
[2016-12-31] MEDS ORDERED: PIPERACILLIN/TAZOB 3.375 GM/50 ML PRE-DOCKED IVPB ONE (23:14)
[2016-12-31] MEDS ORDERED: VANCOMYCIN 1,000 MG in DEXTROSE 5%-WATER - 250 ML IVPB ONE (23:14)
[2016-12-31 23:16] LABS: TROPONIN I 0.02 ng/ml (0.00-0.05)
[2016-12-31] MEDS ORDERED: AZITHROMYCIN IVPB 250 ML IVPB ONE (23:29)
[2016-12-31] MEDS ORDERED: MAGNESIUM SULF 50% (8.12 MEQ/2 ML-1 GM VIAL) IVPB ONE (23:30)
[2016-12-31] MEDS ORDERED: SODIUM CHLORIDE 500 ML IV STA ×2 (23:30→23:41)
[2017-01-01] MEDS ORDERED: PIPERACILLIN/TAZOB 3.375 GM 50 ML IVPB ONE (00:50)
[2017-01-01] MEDS ORDERED: VANCOMYCIN 1 GRAM (PRE-DOCKED) 250 ML IVPB ONE (01:56)
[2017-01-01 03:00] VITALS: BMI 18.0
--- NOTE | 2017-01-01 03:21 | CONSULT ---
Consult Consult Specialty:: Pulmonary Critical Care Reason for Consultation:: SOB, TARANGO now on BiPAP - History of Present Illness Chief Complaint: SOB, TARANGO, Productive Sputum History of Present Illness: The patient is a 86 year old male with a significant past medical history of COPD, Emphysema, HLD, CVA, peripheral arterial disease, gout, prostate CA, BPH, HTN, CHF, who was brought in via EMS from home accompanied by with his son, with c/o shortness of breath and cough which began yesterday. The son describes the cough as productive of a liquidity brown sputum. The patient was recently discharged from [facility] last week for rehabilitation therapy.The patient was brought into the ED on C-Pap with Spo2 78%. Pt placed on Bipap with SPO2 increasing to 95%. Labs were notable for leukocytosis, lactic acidosis 2.3 , BIANCA creat 2.3 and pt with hypotension requiring fluid resuscitation with 2L NS. Pt ojeda cultured and started on vanco, zosyn and azithrmycin for HAP given recent d/c from rehab facility. Pt then transferred to ICU for further medical care. 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) Pulmonary: Yes: COPD Renal/: Yes: Other (PROSTATE CA) - Alcohol/Substance Use Hx Alcohol Use: No - Smoking History Smoking history: Former smoker Have you smoked in the past 12 months: No Aproximately how many cigarettes per day: 0 If you are a former smoker, when did you quit?: 1984 Home Medications - Allergies Allergies/Adverse Reactions: Allergies Allergy/AdvReac Type Severity Reaction Status Date / Time clopidogrel bisulfate Allergy Verified 12/31/16 21:57 [From Plavix] - Home Medications Home Medications: Ambulatory Orders Aspirin [ASA -] 81 mg PO DAILY 11/19/16 Cilostazol 100 mg PO BID 11/19/16 Colchicine [Colcrys] 0.6 mg PO DAILY 11/19/16 Furosemide [Lasix] 40 mg PO DAILY 11/19/16 Losartan Potassium [Cozaar] 25 mg PO DAILY 11/19/16 Simvastatin [Zocor -] 40 mg PO HS 11/19/16 Tamsulosin HCl [Flomax] 0.4 mg PO DAILY 11/19/16 Carvedilol [Coreg] 6.25 mg PO BID #0 tablet 11/24/16 Duloxetine HCl [Cymbalta] 20 mg PO DAILY #0 capsule. 11/24/16 Potassium Chloride [K-Dur -] 20 meq PO DAILY 12/31/16 Physical Exam Vital Signs: Vital Signs Temperature 99.7 F H 01/01/17 02:31 Pulse Rate 133 H 01/01/17 02:31 Respiratory Rate 25 H 01/01/17 02:31 Blood Pressure 106/67 01/01/17 02:31 O2 Sat by Pulse Oximetry (%) 100 01/01/17 02:31 Constitutional: Yes: Mild Distress, Thin Eyes: Yes: PERRL HENT: Yes: Atraumatic, Normocephalic Neck: Yes: Supple, Trachea Midline Cardiovascular: Yes: Tachycardia, S1, S2 Respiratory: Yes: Accessory Muscle Use, On BiPap, Rhonchi, Tachypnea, Wheezes, Other Gastrointestinal: Yes: Normal Bowel Sounds, Soft, Other (normoactive bs x4 quadrants) ...Rectal Exam: Yes: Deferred Renal/: Yes: Incontinence Edema: No Peripheral Pulses WNL: Yes Integumentary: Yes: WNL Neurological: Yes: Lethargy, Other (Hard of Hearing) Labs: CBCD WBC 16.4 K/mm3 (4.0-10.0) H D 12/31/16 22:25 RBC 4.42 M/mm3 (4.00-5.60) D 12/31/16 22:25 Hgb 11.7 GM/dL (11.7-16.9) D 12/31/16 22:25 Hct 36.8 % (35.4-49) D 12/31/16 22:25 MCV 83.2 fl (80-96) 12/31/16 22:25 MCHC 31.9 g/dl (32.0-35.9) L 12/31/16 22:25 RDW 16.0 % (11.9-15.9) H D 12/31/16 22:25 Plt Count 327 K/MM3 (134-434) 12/31/16 22:25 MPV 7.9 fl (7.5-11.1) D 12/31/16 22:25 CMP Sodium 136 mmol/L (136-145) 12/31/16 22:25 Potassium 3.7 mmol/L (3.5-5.1) 12/31/16 22:25 Chloride 94 mmol/L (98-107) L 12/31/16 22:25 Carbon Dioxide 22 mmol/L (21-32) D 12/31/16 22:25 Anion Gap 20 (8-16) H 12/31/16 22:25 BUN 46 mg/dL (7-18) H D 12/31/16 22:25 Creatinine 3.3 mg/dL (0.7-1.3) H D 12/31/16 22:25 Creat Clearance w eGFR 17.86 (>60) 12/31/16 22:25 Random Glucose 126 mg/dL (74-106) H 12/31/16 22:25 Calcium 8.5 mg/dL (8.5-10.1) 12/31/16 22:25 Total Bilirubin 0.5 mg/dL (0.2-1.0) D 12/31/16 22:25 AST 23 U/L (15-37) D 12/31/16 22:25 ALT 18 U/L (12-78) D 12/31/16 22:25 Alkaline Phosphatase 81 U/L (45-117) D 12/31/16 22:25 Total Protein 6.7 g/dl (6.4-8.2) D 12/31/16 22:25 Albumin 3.0 g/dl (3.4-5.0) L D 12/31/16 22:25 CARDIAC ENZYMES Creatine Kinase 196 IU/L (39-308) D 12/31/16 22:25 Troponin I 0.02 ng/ml (0.00-0.05) 12/31/16 22:25 Imaging - Results Chest X-ray: Report Reviewed (RML infiltrates) Problem List - Problems (1) Acute renal insufficiency Code(s): N28.9 - DISORDER OF KIDNEY AND URETER, UNSPECIFIED (2) Pneumonia Code(s): J18.9 - PNEUMONIA, UNSPECIFIED ORGANISM Qualifiers: Pneumonia type: due to unspecified organism Laterality: unspecified laterality Lung location: unspecified part of lung Qualified Code(s): J18.9 - Pneumonia, unspecified organism (3) Sepsis Code(s): A41.9 - SEPSIS, UNSPECIFIED ORGANISM Qualifiers: Sepsis type: sepsis due to unspecified organism Qualified Code(s): A41.9 - Sepsis, unspecified organism (4) Acute on chronic diastolic (congestive) heart failure Code(s): I50.33 - ACUTE ON CHRONIC DIASTOLIC (CONGESTIVE) HEART FAILURE (5) CHF exacerbation Code(s): I50.9 - HEART FAILURE, UNSPECIFIED Qualifiers: Congestive heart failure type: unspecified congestive heart failure type Qualified Code(s): I50.9 - Heart failure, unspecified (6) COPD (chronic obstructive pulmonary disease) Code(s): J44.9 - CHRONIC OBSTRUCTIVE PULMONARY DISEASE, UNSPECIFIED Qualifiers : COPD type: unspecified COPD Qualified Code(s): J44.9 - Chronic obstructive pulmonary disease, unspecified Assessment/Plan A: The patient is a 86 year old male with a significant past medical history of COPD, Emphysema, HLD, CVA, peripheral arterial disease, gout, prostate CA, BPH, HTN, CHF, who was brought in via EMS from home accompanied by with his son, with c/o shortness of breath and cough which began yesterday. Given recent discharge from rehab facility and now with TARANGO, SOB, leukocytosis, tachypnea and hypoxia necessiatating BiPAP, pt admitted to ICU for HAP associated sepsis. P: -Cont Bipap and wean FIO2 for goal SPO2 92% -duonebs q4hrs -ABG PRN -Cont antibiotics -NPO -bladder scan and consider garcia insertion for more accurate I/O -NS bolus 1L over 2 hours given hx of CHF -will hold on maintenance fluid for now given cardiac history; will continue to monitor -trend bnp -GOC discussion had with family. Pt made DNR/DNI. Thank you for this interesting consult. Pt is critically ill. CCT 45 mins not including procedures.
[2017-01-01] MEDS ORDERED: MAGNESIUM SULF 50% (8.12 MEQ/2 ML-1 GM VIAL) ONE (03:29)
[2017-01-01 03:45] LABS: ARTERIAL BLOOD GAS BASE EXCESS -5.9 meq/l (-2-2); ARTERIAL BLOOD GAS HCO3 23.5 meq/L (22-26)
[2017-01-01 03:46] LABS: ALLENS TEST POSITIVE; ART PUNCT SITE LEFT RADIAL; LPM/O2% 60; PT. ON O2? YES; TYPE OF O2 BIPAP; VENT RATE 14
[2017-01-01 03:47] LABS: ARTERIAL BLOOD GAS pH 7.16 (7.35-7.45)
[2017-01-01] MEDS: ALBUTEROL SO4 2.5/IPRATROPIUM 0.5 INH SOL 3 ML VIAL.NEB. NEB PRN ×2 (04:00→12:28)
[2017-01-01] MEDS ORDERED: SODIUM CHLORIDE 0.9% 1000 ML INFUS.BAG IV ONE (04:14)
[2017-01-01] MEDS ORDERED: DOPAMINE 400 MG/D5W - 250 ML IVPB ONE (05:44)
[2017-01-01] MEDS: DOPAMINE HCL 400,000 MCG in SODIUM CHLORIDE 240 ML IV SCH (05:53)
[2017-01-01 06:27] LABS: BASOPHIL 0.2 % (0-2.0); MCH 27.3 pg (25.7-33.7); MCHC 32.6 g/dl (32.0-35.9); MEAN CELL VOLUME 83.5 fl (80-96); MEAN PLT VOLUME 8.4 fl (7.5-11.1); NEUTROPHILS 92.2 % (42.8-82.8); PLATELET COUNT 333 K/MM3 (134-434); RDW 16.2 % (11.9-15.9); WHITE BLOOD COUNT 16.9 K/mm3 (4.0-10.0)
[2017-01-01 06:47] LABS: ALBUMIN 2.7 g/dl (3.4-5.0); BILIRUBIN,TOTAL 0.7 mg/dL (0.2-1.0); COCKROFT - GAULT 11.35; CREATININE 3.6 mg/dL (0.7-1.3)
[2017-01-01 06:50] LABS: TOT PROT 6.2 g/dl (6.4-8.2)
--- NOTE | 2017-01-01 07:55 | PN ---
Physical Exam: SUBJECTIVE: Patient seen and examined. Contracted in bed, GCS 7(E2v1m4). nonverbal on Bipap. History obtained from family at bedside. Patient recently discharged from [facility], about 1 week ago. has been cough for past few days; thick naomy appearing sputum. He started to have difficulty breathing last night and was brought to the hospital. OBJECTIVE: Vital Signs Period Temp Pulse Resp BP Sys/Gurrola Pulse Ox Last 24 Hr 98.2 F-99.7 F 120-136 21-25 83-124/40-67 98-100 GENERAL: gcs7, contracted in bed in position. HEAD: Normal with no signs of trauma. EYES: sluggish pupils reaction to ligh, 3mm pupils, sclera anicteric, conjunctiva clear. ENT: nares patent, edentulism. NECK: Trachea midline, no JVD, no lad. LUNGS: diffuse rhonchi throughout b/l lungs, tachypnea, accessory muscle use HEART: Regular rate and rhythm, S1, S2 without murmur ABDOMEN: Soft, nondistended, normoactive bowel sounds, no guarding EXTREMITIES: 2+ pulses, cool extremities, no edema. 5/5 handgrip b/l, Neurological: spontaneously moves all limbs, does not follow commands, retracts from pain. Laboratory Results - last 24 hr 01/01/17 01/01/17 01/01/17 03:33 05:20 05:20 WBC 16.9 H RBC 4.24 Hgb 11.6 L Hct 35.4 MCV 83.5 MCHC 32.6 RDW 16.2 H Plt Count 333 MPV 8.4 Neutrophils % 92.2 H D Lymphocytes % 2.5 L D Monocytes % 5.1 Eosinophils % 0.0 D Basophils % 0.2 Puncture Site Left radial ABG pH 7.16 L* ABG pCO2 at Pt Temp 69.4 H* ABG pO2 at Pt Temp 210.0 H* ABG HCO3 23.5 ABG O2 Sat (Measured) 99.0 H ABG O2 Content 16.0 ABG Base Excess -5.9 L Sarbjit Test Positive O2 Delivery Device Bipap Oxygen Flow Rate [address] Vent Rate 14 Pressure Support Vent 12/5 Sodium 136 Potassium 3.8 Chloride 93 L Carbon Dioxide 24 Anion Gap 19 H BUN 51 H Creatinine 3.6 H Creat Clearance w eGFR 16.16 Random Glucose 175 H D Calcium 8.0 L Total Bilirubin 0.7 D AST 19 ALT 16 Alkaline Phosphatase 71 B-Natriuretic Peptide 1201.46 H Total Protein 6.2 L Albumin 2.7 L Active Medications Generic Name Dose Route Start Last Admin Trade Name Freq PRN Reason Stop Dose Admin Acetaminophen 650 mg 12/31/16 23:10 Tylenol - PO Q6H PRN FEVER OR PAIN Albuterol/Ipratropium 1 amp 01/01/17 03:15 01/01/17 04:00 Duoneb - NEB 1 amp Q4H PRN Administration Aspirin 81 mg 01/01/17 10:00 Ecotrin - PO DAILY [facility] Atorvastatin Calcium 20 mg 01/01/17 22:00 Lipitor - PO HS [facility] Carvedilol 6.25 mg 01/01/17 10:00 Coreg - PO BID [facility] Cilostazol 100 mg 01/01/17 10:00 Pletal - PO BID [facility] Duloxetine HCl 60 mg 01/01/17 10:00 Cymbalta - PO DAILY [facility] Furosemide 40 mg 01/01/17 10:00 Lasix Injection - IVPB DAILY [facility] Dopamine HCl 400,000 mcg/ 250 mls @ 3.92 mls/hr 01/01/17 05:45 01/01/17 06:40 Sodium Chloride IV 3 mcg/kg/min TITR GEETA Titration Protocol 2 MCG/KG/MIN Losartan Potassium 50 mg 01/01/17 10:00 Cozaar - PO DAILY [facility] Ranitidine HCl 150 mg 01/01/17 10:00 Zantac - PO DAILY [facility] Tamsulosin HCl 0.4 mg 01/01/17 08:30 Flomax - PO DAILY@0830 [facility] ASSESSMENT/PLAN: 86 yr old man with COPD/emphysema, CVA, PAD, HTN, CHF admitted for acute respiratory failure, suspected SU-pneumonia causing septic shock. Code status: DNR/DNI Pulmonary Acute on chronic hypoxic hypercapnic respiratory failure requiring Bipap, possible multifactorial cause from chf exacerbation and pna - continue Bipap to maintain sat >90% - solumedril 40mg IVPB for 5 days - Brovana 1amp neb BID geeta - duonebs 1 amp neb q4hr prn Cardiovascular Acute on chronic LV-diastolic CHF; elevated BNP maintain MAP >65 IVF + dopamine gtt wean dopamin drip Hold duiretics and anit-HTN meds until BP improves Consult: Dr. Cedillo GI NPO while on Bipap, hold oral medications IVF ID Hospital Associated pnuemonia- right lower lobe infiltrate, leucocytosis zithromycin 500ivpb qdaily Zosyn 2.25gm ivpb q8hr bld cx pending -- abx day 1 consult: Dr. Fuentes Renal BIANCA - replete serum electrolytes, Mg>2.0, K+>4 - renal ultrasound for further investigation - suspicios for pre-renal hypoperfusion due to sepsis Consult: Dr. Carrington Neurological AMS secondary to hypoxic respiratory failure vs sepsis Fluids: D5/NS @42mls/hr Electrolytes: replete Magnesium Diet: NPO DVT:SCD's Visit type - Emergency Visit Emergency Visit: No - New Patient This patient is new to me today: Yes Date on this admission: 01/01/17 - Critical Care Critical Care patient: Yes Total Critical Care Time (in minutes): 36 Critical Care Statement: The care of this patient involved high complexity decision making to prevent further life threatening deterioration of the patient 's condition and/or to evalute & treat vital organ system(s) failure or risk of failure.
[2017-01-01] MEDS ORDERED: TAMSULOSIN HCL 0.4 MG CAP.ER.24H (FP) PO SCH (08:30)
[2017-01-01 08:47] LABS: ARTERIAL BLD GAS O2 SATURATION 90.8 % (90-98.9); ARTERIAL BLOOD GAS BASE EXCESS -5.9 meq/l (-2-2); ARTERIAL BLOOD GAS HCO3 22.2 meq/L (22-26); ARTERIAL BLOOD GAS PO2 70.9 mmHg (68-100)
[2017-01-01 08:52] LABS: ALLENS TEST POSITIVE; ART PUNCT SITE RIGHT BRACHIAL
[2017-01-01 08:53] LABS: LPM/O2% 60%; MECH. VENT. BIPAP; PT. ON O2? YES; TYPE OF O2 BIPAP; VENT RATE 25; VT/PRESS 20/10
[2017-01-01] MEDS ORDERED: LOSARTAN POTASSIUM 50 MG TABLET (FP) PO SCH (10:00)
[2017-01-01] MEDS ORDERED: DULoxetine HCL 60 MG CAPSULE.DR PO SCH (10:00)
[2017-01-01] MEDS ORDERED: ASPIRIN COATED 81 MG TABLET.EC PO SCH (10:00)
[2017-01-01] MEDS ORDERED: CILOSTAZOL 100 MG TABLET PO SCH (10:00)
[2017-01-01] MEDS ORDERED: RANITIDINE HCL 150 MG TABLET (FP) PO SCH (10:00)
[2017-01-01] MEDS ORDERED: FUROSEMIDE 40 MG/4 ML INJECTABLE VIAL IVPB SCH (10:00)
[2017-01-01] MEDS ORDERED: CARVEDILOL 6.25 MG TABLET (FP) PO SCH (10:00)
[2017-01-01] MEDS ORDERED: DEXTROSE 5%-NORMAL SALINE 1,000 ML IV SCH (12:00)
--- NOTE | 2017-01-01 12:23 | PN ---
Teaching Attending Note Name of Resident: Sergo Vargas ATTENDING PHYSICIAN STATEMENT I saw and evaluated the patient. I reviewed the resident's note and discussed the case with the resident. I agree with the resident's findings and plan as documented. SUBJECTIVE: Patient seen and examined in the ICU. Lethargic on BiPAP with a significant mask leak. Mask was changed and leak somewhat improved. Low dose Dopamine infusing peripherally. Family at the bedside -> DNR/DNI. Intake & Output 12/29/16 12/30/16 12/31/16 01/01/17 23:59 23:59 23:59 23:59 Intake Total 1255 Balance 1255 Weight 118 lb 120 lb 2 oz Last Vital Signs Temp Pulse Resp BP Pulse Ox 96.3 F L 128 H 24 61/50 93 L 01/01/17 10:00 01/01/17 10:25 01/01/17 10:00 01/01/17 10:00 01/01/17 10:25 Active Medications Albuterol/Ipratropium (Duoneb -) 1 amp NEB Q4H PRN Last Admin: 01/01/17 04:00 Dose: 1 amp Dopamine HCl 400,000 mcg/ (Sodium Chloride) 250 mls @ 3.92 mls/hr IV TITR BOBBY; 2 MCG/KG/MIN PRN Reason: Protocol Last Titration: 01/01/17 06:40 Dose: 3 mcg/kg/min Dextrose/Sodium Chloride (D5-Ns -) 1,000 mls @ 75 mls/hr IV ASDIR BOBBY Methylprednisolone Sodium Succinate (Solu-Medrol -) 40 mg IVPB DAILY BOBBY Stop: 01/06/17 12:14 Physical Exam Vital Signs: Constitutional: Yes: Tachypneic on BiPAP, confused Eyes: Yes: PERRL HENT: Yes: Atraumatic, Normocephalic Neck: Yes: Supple, Trachea Midline Cardiovascular: Yes: Tachycardia, S1, S2 Respiratory: Yes: Accessory Muscle Use, On BiPap, Rhonchi, Tachypnea, Wheezes Gastrointestinal: Yes: Normal Bowel Sounds, Soft ...Rectal Exam: Yes: Deferred Renal/: Yes: Incontinence Edema: No Peripheral Pulses WNL: Yes Integumentary: Yes: WNL Neurological: Yes: Lethargy Labs: Laboratory Results - last 24 hr 12/31/16 12/31/1612/31/17 22:25 22:25 22:25 WBC 16.4 H D RBC 4.42 D Hgb 11.7 D Hct 36.8 D MCV 83.2 MCHC 31.9 L RDW 16.0 H D Plt Count 327 MPV 7.9 D Neutrophils % 74.0 Lymphocytes % 4.0 L D Monocytes % 6.0 Eosinophils % Basophils % Band Neutrophils 16.0 H D Platelet Estimate Adequate Platelet Comment Rare giant plts INR 1.11 PTT (Actin FS) 30.4 Puncture Site ABG pH ABG pCO2 at Pt Temp ABG pO2 at Pt Temp ABG HCO3 ABG O2 Sat (Measured) ABG O2 Content ABG Base Excess Sarbjit Test O2 Delivery Device Oxygen Flow Rate Vent Mode Vent Rate Mechanical Rate PEEP Pressure Support Vent Sodium 136 Potassium 3.7 Chloride 94 L Carbon Dioxide 22 D Anion Gap 20 H BUN 46 H D Creatinine 3.3 H D Creat Clearance w eGFR 17.86 Random Glucose 126 H Lactic Acid Calcium 8.5 Phosphorus 4.4 Magnesium 1.6 L Total Bilirubin 0.5 D AST 23 D ALT 18 D Alkaline Phosphatase 81 D Creatine Kinase 196 D Creatine Kinase Index 2.6 CK-MB (CK-2) 5.013 H CK-MB (CK-2) Rel Index Troponin I 0.02 B-Natriuretic Peptide 892.51 H Total Protein 6.7 D Albumin 3.0 L D 12/31/16 12/31/16 01/01/17 22:25 22:25 03:33 WBC RBC Hgb Hct MCV MCHC RDW Plt Count MPV Neutrophils % Lymphocytes % Monocytes % Eosinophils % Basophils % Band Neutrophils Platelet Estimate Platelet Comment INR PTT (Actin FS) Puncture Site Left radial ABG pH 7.16 L* ABG pCO2 at Pt Temp 69.4 H* ABG pO2 at Pt Temp 210.0 H* ABG HCO3 23.5 ABG O2 Sat (Measured) 99.0 H ABG O2 Content 16.0 ABG Base Excess -5.9 L Sarbjit Test Positive O2 Delivery Device Bipap Oxygen Flow Rate [address] Vent Rate 14 Mechanical Rate PEEP Pressure Support Vent 12/5 Sodium Potassium Chloride Carbon Dioxide Anion Gap BUN Creatinine Creat Clearance w eGFR Random Glucose Lactic Acid 2.272 H* Calcium Phosphorus Magnesium Total Bilirubin AST ALT Alkaline Phosphatase Creatine Kinase Creatine Kinase Index CK-MB (CK-2) CK-MB (CK-2) Rel Index Cancelled Troponin I B-Natriuretic Peptide Total Protein Albumin 01/01/17 01/01/17 01/01/17 05:20 05:20 07:55 WBC 16.9 H RBC 4.24 Hgb 11.6 L Hct 35.4 MCV 83.5 MCHC 32.6 RDW 16.2 H Plt Count 333 MPV 8.4 Neutrophils % 92.2 H D Lymphocytes % 2.5 L D Monocytes % 5.1 Eosinophils % 0.0 D Basophils % 0.2 Band Neutrophils Platelet Estimate Platelet Comment INR PTT (Actin FS) Puncture Site ABG pH ABG pCO2 at Pt Temp ABG pO2 at Pt Temp ABG HCO3 ABG O2 Sat (Measured) ABG O2 Content ABG Base Excess Sarbjit Test O2 Delivery Device Oxygen Flow Rate Vent Mode Vent Rate Mechanical Rate PEEP Pressure Support Vent Sodium 136 Potassium 3.8 Chloride 93 L Carbon Dioxide 24 Anion Gap 19 H BUN 51 H Creatinine 3.6 H Creat Clearance w eGFR 16.16 Random Glucose 175 H D Lactic Acid 1.658 Calcium 8.0 L Phosphorus Magnesium Total Bilirubin 0.7 D AST 19 ALT 16 Alkaline Phosphatase 71 Creatine Kinase Creatine Kinase Index CK-MB (CK-2) CK-MB (CK-2) Rel Index Troponin I B-Natriuretic Peptide 1201.46 H Total Protein 6.2 L Albumin 2.7 L 01/01/17 08:25 WBC RBC Hgb Hct MCV MCHC RDW Plt Count MPV Neutrophils % Lymphocytes % Monocytes % Eosinophils % Basophils % Band Neutrophils Platelet Estimate Platelet Comment INR PTT (Actin FS) Puncture Site Right brachial ABG pH 7.20 L* ABG pCO2 at Pt Temp 59.1 H ABG pO2 at Pt Temp 70.9 D ABG HCO3 22.2 ABG O2 Sat (Measured) 90.8 ABG O2 Content 14.2 L ABG Base Excess -5.9 L Sarbjit Test Positive O2 Delivery Device Bipap Oxygen Flow Rate 60% Vent Mode S/t Vent Rate 25 Mechanical Rate Bipap PEEP 0.0 Pressure Support Vent 20/10 Sodium Potassium Chloride Carbon Dioxide Anion Gap BUN Creatinine Creat Clearance w eGFR Random Glucose Lactic Acid Calcium Phosphorus Magnesium Total Bilirubin AST ALT Alkaline Phosphatase Creatine Kinase Creatine Kinase Index CK-MB (CK-2) CK-MB (CK-2) Rel Index Troponin I B-Natriuretic Peptide Total Protein Albumin Problem List - Problems (1) Acute renal insufficiency Code(s): N28.9 - DISORDER OF KIDNEY AND URETER, UNSPECIFIED (2) Pneumonia Code(s): J18.9 - PNEUMONIA, UNSPECIFIED ORGANISM Qualifiers: Pneumonia type: due to unspecified organism Laterality: unspecified laterality Lung location: unspecified part of lung Qualified Code(s): J18.9 - Pneumonia, unspecified organism (3) Sepsis Code(s): A41.9 - SEPSIS, UNSPECIFIED ORGANISM Qualifiers: Sepsis type: sepsis due to unspecified organism Qualified Code(s): A41.9 - Sepsis, unspecified organism (4) Acute on chronic diastolic (congestive) heart failure Code(s): I50.33 - ACUTE ON CHRONIC DIASTOLIC (CONGESTIVE) HEART FAILURE (5) CHF exacerbation Code(s): I50.9 - HEART FAILURE, UNSPECIFIED Qualifiers: Congestive heart failure type: unspecified congestive heart failure type Qualified Code(s): I50.9 - Heart failure, unspecified (6) COPD (chronic obstructive pulmonary disease) Code(s): J44.9 - CHRONIC OBSTRUCTIVE PULMONARY DISEASE, UNSPECIFIED Qualifiers : COPD type: unspecified COPD Qualified Code(s): J44.9 - Chronic obstructive pulmonary disease, unspecified Assessment/Plan Acute Respiratory Failure requiring NIPPV Peripheral arterial disease Gout Prostate CA BPH HTN CHF AMS Suspected PNA Leukocytosis PLAN: -Cont BiPAP and wean FIO2 for goal SPO2 92% -BD TX -ABX -NPO -IVF -Wean Dopamine -DNR/DNI Dr Quinn CCTime 35"
--- NOTE | 2017-01-01 12:40 | EKG ---
Test Reason : Blood Pressure : / mmHG Vent. Rate : 139 BPM Atrial Rate : 139 BPM P-R Int : 122 ms QRS Dur : 108 ms QT Int : 292 ms P-R-T Axes : 082 075 064 degrees QTc Int : 444 ms SINUS TACHYCARDIA WITH PREMATURE VENTRICULAR COMPLEXES OR FUSION COMPLEXES RIGHT BUNDLE BRANCH BLOCK ABNORMAL ECG WHEN COMPARED WITH ECG OF 19-NOV-2016 14:03, FUSION COMPLEXES ARE NOW PRESENT PREMATURE VENTRICULAR COMPLEXES ARE NOW PRESENT RIGHT BUNDLE BRANCH BLOCK HAS REPLACED INCOMPLETE RIGHT BUNDLE BRANCH BLOCK Confirmed by SAMEERA YANES MD ([id number]) on 01/01/2017 12:40:25 PM Referred By: Confirmed By:SAMEERA YANES MD
--- NOTE | 2017-01-01 13:07 | HP ---
Admitting History and Physical - Primary Care Physician PCP: Tay Wu - Admission Chief Complaint: DYSPNEA/CHEST PAIN History of Present Illness: The patient is a 86 year old male brought via EMS from home and presenting with his son, with a significant past medical history of COPD, Emphysema, HLD, CVA, peripheral arterial disease, gout, prostate CA, BPH, HTN, CHF, who presents to the emergency department with shortness of breath and cough onset today. The patient was brought into the ED on C-Pap. The son describes the cough as productive of a liquidity brown sputum. The patient was recently discharged from [facility] last week where he was for rehabilitation. The patient denies chest pain, headache and dizziness. Denies fever, chills, nausea, vomit, diarrhea and constipation. Denies dysuria, frequency, urgency and hematuria. 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) Pulmonary: Yes: COPD Renal/: Yes: Other (PROSTATE CA) - Smoking History Smoking history: Former smoker Have you smoked in the past 12 months: No Aproximately how many cigarettes per day: 0 If you are a former smoker, when did you quit?: 1984 - Alcohol/Substance Use Hx Alcohol Use: No Home Medications - Allergies Allergies/Adverse Reactions: Allergies Allergy/AdvReac Type Severity Reaction Status Date / Time clopidogrel bisulfate Allergy Verified 12/31/16 21:57 [From Plavix] - Home Medications Home Medications: Ambulatory Orders Aspirin [ASA -] 81 mg PO DAILY 11/19/16 Cilostazol 100 mg PO BID 11/19/16 Colchicine [Colcrys] 0.6 mg PO DAILY 11/19/16 Furosemide [Lasix] 40 mg PO DAILY 11/19/16 Losartan Potassium [Cozaar] 25 mg PO DAILY 11/19/16 Simvastatin [Zocor -] 40 mg PO HS 11/19/16 Tamsulosin HCl [Flomax] 0.4 mg PO DAILY 11/19/16 Carvedilol [Coreg] 6.25 mg PO BID #0 tablet 11/24/16 Duloxetine HCl [Cymbalta] 20 mg PO DAILY #0 capsule. 11/24/16 Potassium Chloride [K-Dur -] 20 meq PO DAILY 12/31/16 Review of Systems - Review of Systems Constitutional: reports: Lethargy, Loss of Appetite, Weakness Eyes: reports: No Symptoms HENT: reports: No Symptoms Neck: reports: No Symptoms Cardiovascular: reports: Chest Pain, Shortness of Breath Respiratory: reports: Cough, SOB, SOB on Exertion Gastrointestinal: reports: No Symptoms Genitourinary: reports: Incontinence Musculoskeletal: reports: Back Pain, Decreased ROM, Joint Swelling, Muscle Pain Integumentary: reports: No Symptoms Neurological: reports: Pre-Existing Deficit Endocrine: reports: No Symptoms Hematology/Lymphatic: reports: No Symptoms Psychiatric: reports: Depression Physical Examination Vital Signs: Vital Signs Temperature 96.3 F L 01/01/17 10:00 Pulse Rate 128 H 01/01/17 10:25 Respiratory Rate 24 01/01/17 10:00 Blood Pressure 61/50 01/01/17 10:00 O2 Sat by Pulse Oximetry (%) 89 L 01/01/17 12:27 Findings/Remarks: ASLEEP ON BIPAP Constitutional: Yes: Severe Distress Eyes: Yes: WNL HENT: Yes: WNL Neck: Yes: WNL Cardiovascular: Yes: Pulse Irregular Respiratory: Yes: Diminished, On BiPap, Poor Air Entry, SOB Gastrointestinal: Yes: WNL Renal/: Yes: Incontinence Musculoskeletal: Yes: Back Pain, Muscle Weakness Extremities: Yes: Other Edema: Yes Edema: LLE: Trace, RLE: Trace Peripheral Pulses WNL: Yes Integumentary: Yes: WNL Wound/Incision: Yes: Clean/Dry Neurological: Yes: Pre-Existing Deficit, Weakness ...Motor Strength: LLE, RLE Psychiatric: Yes: Other Labs: CBC, BMP 01/01/17 05:20 01/01/17 05:20 Imaging - Results Chest X-ray: Report Reviewed Problem List - Problems (1) Acute renal insufficiency Code(s): N28.9 - DISORDER OF KIDNEY AND URETER, UNSPECIFIED (2) Pneumonia Code(s): J18.9 - PNEUMONIA, UNSPECIFIED ORGANISM Qualifiers: Pneumonia type: due to unspecified organism Laterality: unspecified laterality Lung location: unspecified part of lung Qualified Code(s): J18.9 - Pneumonia, unspecified organism (3) Acute on chronic diastolic (congestive) heart failure Code(s): I50.33 - ACUTE ON CHRONIC DIASTOLIC (CONGESTIVE) HEART FAILURE (4) Anemia Code(s): D64.9 - ANEMIA, UNSPECIFIED (5) CHF exacerbation Code(s): I50.9 - HEART FAILURE, UNSPECIFIED Qualifiers: Congestive heart failure type: unspecified congestive heart failure type Qualified Code(s): I50.9 - Heart failure, unspecified (6) COPD (chronic obstructive pulmonary disease) Code(s): J44.9 - CHRONIC OBSTRUCTIVE PULMONARY DISEASE, UNSPECIFIED Qualifiers : COPD type: unspecified COPD Qualified Code(s): J44.9 - Chronic obstructive pulmonary disease, unspecified Assessment/Plan PATIENT IS DNR/DNI BIPAP FOR RESP SUPPORT IV LASIX IV ABX FAMILY BEDSIDE 30 MIN OF ICU TIME SPENT WITH FAMILY
[2017-01-01] MEDS: methylPREDNISolone NA SUCC 40 MG/1 ML VIAL IVPB SCH (14:01)
--- NOTE | 2017-01-01 14:28 | PN ---
Progress Note (short form) - Note Progress Note: ID Consult dictated Sepsis/ Possible septic shock` COPD exacerbation Pneumonia Acute renal failure Lactic acidosis Leukocytosis Hemodynamic support/ ICU monitoring Empiric coverage, HCAP with IV zithromax/ zosyn Critical care time 35min
--- NOTE | 2017-01-01 15:25 | CONS ---
DATE OF CONSULTATION: HISTORY: The patient is an 86-year-old male who is evaluated for possible septic shock. History was obtained from the chart as well as his [id number] who is present at the time of the examination. He was recently hospitalized with cardiac and lung issues. He was in a [facility] facility for approximately 4 weeks for rehabilitation. He was discharged and has been home for approximately 1 week. One day prior to admission he developed worsening shortness of breath and cough productive of dark sputum. He denied any chest pain, fever, or chills. He was taken to the emergency room where a chest x-ray showed increased markings at the bases bilaterally. He was noted to be hypoxemic and hypotensive with an elevated white blood cell count and lactic acid level. He was empirically treated with vancomycin, Zosyn, and Zithromax for a presumed healthcare-associated pneumonia. His course has been further complicated by hypotension requiring IV fluids and pressors and acute renal failure. At the present time, he is lethargic on CPAP. No reports of high-grade fever, shaking chills, vomiting, diarrhea. PAST MEDICAL HISTORY: Positive for COPD, hyperlipidemia, CVA, peripheral vascular disease, gouty arthritis, prostate cancer, BPH, hypertension, congestive heart failure. PAST SURGICAL HISTORY: Staple oriented carotid endarterectomy. ALLERGIES: PLAVIX. MEDICATIONS: Presently include Solu-Medrol, DuoNeb, Brovana, dopamine. SOCIAL HISTORY: The patient is a former smoker. He lives in the community. Recent hospitalization for rehabilitation as described. SYSTEMS REVIEW: Neurologic: No loss of consciousness, seizure activity, focal weakness. Cardiac: Negative chest pain or palpitations. Respiratory: As per HPI. Gastrointestinal: Negative vomiting or diarrhea. Genitourinary: Negative for urinary tract infection. LABORATORY DATA: White count 16.9, 92 neutrophils, 2 lymphocytes, 5 monocytes, hematocrit 35.4, platelet count 333, BUN 51, creatinine 3.6. Liver enzymes within normal limits. Lactic acid 2.2. Chest x-ray shows increased markings at the bases bilaterally. PHYSICAL EXAMINATION: General: The patient is awake but lethargic on CPAP mask in no acute respiratory distress. Vital Signs: Temperature 96.3, T-max 99.7, blood pressure 142/78, pulse 130, regular, respirations 18 per minute. HEENT: Sclerae anicteric. Neck: Supple. Heart: Sounds S1, S2. Tachycardic. Lungs: Diminished breath sounds bilaterally. Abdomen: Soft. No tenderness elicited. No mass, rebound, or rigidity. Extremities: Have 1+ edema. IMPRESSION: 1. Sepsis, possible septic shock. 2. Chronic obstructive pulmonary disease exacerbation. 3. Possible healthcare-associated pneumonia. 4. Acute renal failure. 5. Lactic acidosis. 6. Leukocytosis. PLAN: Continue IV fluid hydration and pressors as noted. Await culture results. Obtain sputum C and S, urine, Legionella, and pneumococcal antigens. Empiric antibiotic coverage for possible healthcare-associated pneumonia with Zosyn and Zithromax. ICU monitoring. Case discussed with family members present at the time of examination. Critical care time 35 minutes. Thank you for the kind referral. BREEZY BROWN M.D. [id number]
[2017-01-01] MEDS: ARFORMOTEROL TARTRATE 15 MCG/2 ML VIAL NEB SCH ×2 (15:29→22:00)
[2017-01-01] MEDS ORDERED: MAGNESIUM SULF 50% (8.12 MEQ/2 ML-1 GM VIAL) IVPB ONE (16:54)
--- NOTE | 2017-01-01 16:58 | CONSULT ---
Consult Consult Specialty:: Nephrology Reason for Consultation:: BIANCA - History of Present Illness Chief Complaint: shortness of breath and cough History of Present Illness: Pt is an 86 year old male with pmhx of COPD, emphysema, CVA, PAD, prostate cancer, gout, CHF and HTN who presents to the ER with shortness of breath. Cough is productive of brown phlegm. He required bipap to oxygenate him. I was called to evaluate pt for BIANCA. He was found to have elevated creatinine and it is worsening. He is unable to give history. Pt is admitted to the ICU. Pt was hypotensive and requires pressors. 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) Pulmonary: Yes: COPD Renal/: Yes: Other (PROSTATE CA) - Alcohol/Substance Use Hx Alcohol Use: No - Smoking History Smoking history: Former smoker Have you smoked in the past 12 months: No Aproximately how many cigarettes per day: 0 If you are a former smoker, when did you quit?: 1985 Home Medications - Allergies Allergies/Adverse Reactions: Allergies Allergy/AdvReac Type Severity Reaction Status Date / Time clopidogrel bisulfate Allergy Verified 12/31/16 21:57 [From Plavix] - Home Medications Home Medications: Ambulatory Orders Aspirin [ASA -] 81 mg PO DAILY 11/19/16 Cilostazol 100 mg PO BID 11/19/16 Colchicine [Colcrys] 0.6 mg PO DAILY 11/19/16 Furosemide [Lasix] 40 mg PO DAILY 11/19/16 Losartan Potassium [Cozaar] 25 mg PO DAILY 11/19/16 Simvastatin [Zocor -] 40 mg PO HS 11/19/16 Tamsulosin HCl [Flomax] 0.4 mg PO DAILY 11/19/16 Carvedilol [Coreg] 6.25 mg PO BID #0 tablet 11/24/16 Duloxetine HCl [Cymbalta] 20 mg PO DAILY #0 capsule. 11/24/16 Potassium Chloride [K-Dur -] 20 meq PO DAILY 12/31/16 Family Disease History - Family Disease History Family History: Unable to Obtain Review of Systems Unable to obtain ROS, reason: pt lethargic Physical Exam Vital Signs: Vital Signs Temperature 98 F 01/01/17 15:00 Pulse Rate 130 H 01/01/17 15:00 Respiratory Rate 28 H 01/01/17 15:00 Blood Pressure 134/74 01/01/17 15:00 O2 Sat by Pulse Oximetry (%) 90 L 01/01/17 15:26 Constitutional: Yes: Calm Eyes: Yes: Conjunctiva Clear HENT: Yes: Atraumatic Cardiovascular: Yes: S1, S2 Respiratory: Yes: On BiPap, Rhonchi Gastrointestinal: Yes: Soft Renal/: Yes: Incontinence Musculoskeletal: Yes: Muscle Weakness Edema: Yes Edema: LLE: 1+, RLE: 1+ Neurological: Yes: Lethargy Labs: CBC, BMP 01/01/17 05:20 01/01/17 05:20 Laboratory Tests 11/19/16 11/22/16 11/23/16 12:44 06:07 06:02 WBC Hgb Plt Count Sodium Potassium Chloride Carbon Dioxide Anion Gap BUN Creatinine 0.7 1.1 D 1.0 Creat Clearance w eGFR Random Glucose Lactic Acid B-Natriuretic Peptide 12/31/16 12/31/16 12/31/16 22:25 22:25 22:25 WBC 16.4 H D Hgb 11.7 D Plt Count 327 Sodium Potassium Chloride Carbon Dioxide Anion Gap BUN Creatinine 3.3 H D Creat Clearance w eGFR 17.86 Random Glucose Lactic Acid 2.272 H* B-Natriuretic Peptide 892.51 H 01/01/17 01/01/17 01/01/17 05:20 05:20 07:55 WBC 16.9 H Hgb 11.6 L Plt Count 333 Sodium 136 Potassium 3.8 Chloride 93 L Carbon Dioxide 24 Anion Gap 19 H BUN 51 H Creatinine 3.6 H Creat Clearance w eGFR 16.16 Random Glucose 175 H D Lactic Acid 1.658 B-Natriuretic Peptide 1201.46 H Imaging - Results Chest X-ray: Report Reviewed Problem List - Problems (1) Acute renal insufficiency Code(s): N28.9 - DISORDER OF KIDNEY AND URETER, UNSPECIFIED (2) Pneumonia Code(s): J18.9 - PNEUMONIA, UNSPECIFIED ORGANISM Qualifiers: Pneumonia type: due to unspecified organism Laterality: unspecified laterality Lung location: unspecified part of lung Qualified Code(s): J18.9 - Pneumonia, unspecified organism (3) Acute on chronic diastolic (congestive) heart failure Code(s): I50.33 - ACUTE ON CHRONIC DIASTOLIC (CONGESTIVE) HEART FAILURE Assessment/Plan Current Medications Generic Name Dose Route Start Last Admin Trade Name Renteta PRN Reason Stop Dose Admin Albuterol/Ipratropium 1 amp 01/01/17 03:15 01/01/17 12:28 Duoneb - NEB 1 amp Q4H PRN Administration Arformoterol Tartrate 1 amp 01/01/17 13:15 01/01/17 15:29 Brovana (Restricted To Pulmonology/Resp) - NEB Not Given BID BOBBY Dopamine HCl 400,000 mcg/ 250 mls @ 3.92 mls/hr 01/01/17 05:45 01/01/17 06:40 Sodium Chloride IV 3 mcg/kg/min TITR BOBBY Titration Protocol 2 MCG/KG/MIN Dextrose/Sodium Chloride 1,000 mls @ 75 mls/hr 01/01/17 12:00 01/01/17 13:56 D5-Ns - IV 75 mls/hr ASDIR BOBBY Administration Azithromycin 250 mls @ 250 mls/hr 01/01/17 14:45 Zithromax 500mg Ivpb (Pre-Docked) IVPB DAILY BOBBY Piperacillin Sod/Tazobactam Sod 50 mls @ 100 mls/hr 01/01/17 14:45 Zosyn 2.25gm Ivpb (Pre-Docked) IVPB Q8H-IV BOBBY Protocol Magnesium Sulfate 1 gm 01/01/17 16:54 Magnesium Sulfate IVPB 01/01/17 16:55 ONCE ONE Methylprednisolone Sodium Succinate 40 mg 01/01/17 12:15 01/01/17 14:01 Solu-Medrol - IVPB 01/06/17 12:14 40 mg DAILY BOBBY Administration Impression 1. BIANCA 2. resp failure requiring bipap 3. hx CHF 4. hypotension 5. sepsis 6. CAD 7. COPD Plan - check ua - send urine lytes and human resources communications manager - check renal ultrasound and creatinine - repeat labs in am - will comment more on etiology of BIANCA as more data is gathered - pressors to a map of 65 - monitor in ICU Dr Carrington
--- NOTE | 2017-01-01 18:29 | CON.CARD ---
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 - History Source History Provided By: Medical Record Limitations to Obtaining History: Clinical Condition - Past Medical History Cardio/Vascular: Yes: CAD, CHF, HTN, Hyperlipdemia, Other (ASHD PAD S/P STRUCTURAL DRAFTER) Pulmonary: Yes: COPD Renal/: Yes: Other (PROSTATE CA) - Alcohol/Substance Use Hx Alcohol Use: No - Smoking History Smoking history: Former smoker Have you smoked in the past 12 months: No Aproximately how many cigarettes per day: 0 If you are a former smoker, when did you quit?: 1985 Home Medications - Allergies Allergies/Adverse Reactions: Allergies Allergy/AdvReac Type Severity Reaction Status Date / Time clopidogrel bisulfate Allergy Verified 12/31/16 21:57 [From Plavix] - Home Medications Home Medications: Ambulatory Orders Aspirin [ASA -] 81 mg PO DAILY 11/19/16 Cilostazol 100 mg PO BID 11/19/16 Colchicine [Colcrys] 0.6 mg PO DAILY 11/19/16 Furosemide [Lasix] 40 mg PO DAILY 11/19/16 Losartan Potassium [Cozaar] 25 mg PO DAILY 11/19/16 Simvastatin [Zocor -] 40 mg PO HS 11/19/16 Tamsulosin HCl [Flomax] 0.4 mg PO DAILY 11/19/16 Carvedilol [Coreg] 6.25 mg PO BID #0 tablet 11/24/16 Duloxetine HCl [Cymbalta] 20 mg PO DAILY #0 capsule. 11/24/16 Potassium Chloride [K-Dur -] 20 meq PO DAILY 12/31/16 Review of Systems Unable to obtain ROS, reason: On bipap Vital Signs: Vital Signs Temperature 98 F 01/01/17 15:00 Pulse Rate 130 H 01/01/17 15:00 Respiratory Rate 28 H 01/01/17 15:00 Blood Pressure 134/74 01/01/17 15:00 O2 Sat by Pulse Oximetry (%) 94 L 01/01/17 17:38 Constitutional: Yes: No Distress, Calm Neck: Yes: Supple Respiratory: Yes: Regular, Diminished, On BiPap, SOB Gastrointestinal: Yes: Normal Bowel Sounds, Soft Cardiovascular: Yes: Tachycardia JVD: No Carotid Bruit: No Heart Sounds: Yes: S1, S2 Edema: No - Other Data Labs, Other Data: CBC, BMP 01/01/17 05:20 01/01/17 05:20 INR, PTT INR 1.11 (0.82-1.09) 12/31/16 22:25 Troponin, BNP 01/01/17 05:20 B-Natriuretic Peptide 1201.46 H Troponin, BNP 01/01/17 05:20 B-Natriuretic Peptide 1201.[address] 139 PVC Ejection Fraction %: LVEF > or = 40 % Imaging - Results Chest X-ray: Report Reviewed (Right sided airspace disease and ATX) Problem List - Problems (1) Acute renal insufficiency Code(s): N28.9 - DISORDER OF KIDNEY AND URETER, UNSPECIFIED (2) Pneumonia Code(s): J18.9 - PNEUMONIA, UNSPECIFIED ORGANISM Qualifiers: Pneumonia type: due to unspecified organism Laterality: unspecified laterality Lung location: unspecified part of lung Qualified Code(s): J18.9 - Pneumonia, unspecified organism (3) Sepsis Code(s): A41.9 - SEPSIS, UNSPECIFIED ORGANISM Qualifiers: Sepsis type: sepsis due to unspecified organism Qualified Code(s): A41.9 - Sepsis, unspecified organism (4) COPD (chronic obstructive pulmonary disease) Code(s): J44.9 - CHRONIC OBSTRUCTIVE PULMONARY DISEASE, UNSPECIFIED Qualifiers : COPD type: unspecified COPD Qualified Code(s): J44.9 - Chronic obstructive pulmonary disease, unspecified (5) Hypercholesteremia Code(s): E78.00 - PURE HYPERCHOLESTEROLEMIA, UNSPECIFIED (6) Diastolic dysfunction without heart failure Code(s): I51.9 - HEART DISEASE, UNSPECIFIED (7) Sinus tachycardia seen on bus driver/monitor Code(s): R00.0 - TACHYCARDIA, UNSPECIFIED (8) Gout Code(s): M10.9 - GOUT, UNSPECIFIED Assessment/Plan 11/21/2016 Echocardiogram showed normal LV systolic function, mild MR and trace to mild TR 1. Acute on chronic hypercapneic respiratory failure, suspected right PNA 2. Sinus tachycardia referable to #1 3. Post septic shock with lactic acidosis and leukocytosis off pressors 4. LV diastolic dysfunction with h/o failure 5. Acute kidney injury referable to hemodynamics alterations 6. Hyperlipidemia 7. ASHD, angina pectoris 8. PAD s/p STRUCTURAL DRAFTER, nonobstructive carotid disease 9. Gout PLAN: 1. Cont BiPAP and wean FIO2 for goal SPO2 92%, bronchodilators, antibiotics course, and IV steroids 2. Hold Lasix 40mg qd and losartan 25 qd, on IVF pending renal recovery. Resume carvedilol 6.25 bid with hemodynamic stability, Lipitor 20mg qhs qd, ASA 81mg qd , Pletal 100 bid 3. F/u urine studies, renal u/s 4. DVT and GI prophylaxis 5. Thank you for consultative opportunity
[2017-01-01] MEDS: PIPERACILLIN/TAZOB 2.25 GM 50 ML IVPB SCH ×2 (18:31→18:40)
[2017-01-01] MEDS: DEXTROSE 5%-NORMAL SALINE 1,000 ML IV SCH (18:32)
[2017-01-01] MEDS: AZITHROMYCIN IVPB 250 ML IVPB SCH (18:39)
[2017-01-01] MEDS ORDERED: ATORVASTATIN CA 20 MG TABLET (FP) PO SCH (22:00)
[2017-01-01] MEDS: HEPARIN NA (PORCINE) 5,000 UNITS/ML 1ML VIAL SQ SCH (22:22)
[2017-01-02] MEDS: PIPERACILLIN/TAZOB 2.25 GM 50 ML IVPB SCH ×3 (01:08→17:47)
[2017-01-02] MEDS: DOPAMINE HCL 400,000 MCG in SODIUM CHLORIDE 240 ML IV SCH (05:31)
[2017-01-02 06:22] LABS: BASOPHIL 0.1 % (0-2.0); MCH 27.4 pg (25.7-33.7); MCHC 33.3 g/dl (32.0-35.9); MEAN CELL VOLUME 82.4 fl (80-96); NEUTROPHILS 94.2 % (42.8-82.8); PLATELET COUNT 229 K/MM3 (134-434); RDW 15.8 % (11.9-15.9); WHITE BLOOD COUNT 13.1 K/mm3 (4.0-10.0)
[2017-01-02 06:46] LABS: CALCIUM 8.4 mg/dL (8.5-10.1); MAGNESIUM 2.7 mg/dL (1.8-2.4)
[2017-01-02 06:47] LABS: COCKROFT - GAULT 22.96; CREATININE 1.8 mg/dL (0.7-1.3); PHOSPHOROUS 4.3 mg/dL (2.5-4.9)
[2017-01-02] MEDS ORDERED: PT OWN MED DRAWER 7, Y5N ONE (09:20)
[2017-01-02] MEDS: AZITHROMYCIN IVPB 250 ML IVPB SCH (09:24)
[2017-01-02] MEDS: methylPREDNISolone NA SUCC 40 MG/1 ML VIAL IVPB SCH (09:31)
[2017-01-02] MEDS: DEXTROSE 5%-NORMAL SALINE 1,000 ML IV SCH (09:32)
[2017-01-02] MEDS: HEPARIN NA (PORCINE) 5,000 UNITS/ML 1ML VIAL SQ SCH ×2 (09:32→22:17)
[2017-01-02] MEDS: ARFORMOTEROL TARTRATE 15 MCG/2 ML VIAL NEB SCH ×2 (10:50→22:00)
--- NOTE | 2017-01-02 11:26 | PN ---
Progress Note, Physician History of Present Illness: Lethargic on CPAP Breathing non-labored Occasional cough productive of dark sputum Afebrile WBC improved - Current Medication List Current Medications: Active Medications Albuterol/Ipratropium (Duoneb -) 1 amp NEB Q4H PRN Last Admin: 01/01/17 12:28 Dose: 1 amp Arformoterol Tartrate (Brovana (Restricted To Pulmonology/Resp) -) 1 amp NEB BID [facility] Last Admin: 01/02/17 10:50 Dose: 1 amp Heparin Sodium (Porcine) (Heparin -) 5,000 unit SQ BID [facility] Last Admin: 01/02/17 09:32 Dose: 5,000 unit Dopamine HCl 400,000 mcg/ (Sodium Chloride) 250 mls @ 3.92 mls/hr IV TITR BOBBY; 2 MCG/KG/MIN PRN Reason: Protocol Last Admin: 01/02/17 05:31 Dose: Not Given Azithromycin (Zithromax 500mg Ivpb (Pre-Docked)) 250 mls @ 250 mls/hr IVPB DAILY [facility] Last Admin: 01/02/17 09:24 Dose: 250 mls/hr Piperacillin Sod/Tazobactam Sod (Zosyn 2.25gm Ivpb (Pre-Docked)) 50 mls @ 100 mls/hr IVPB Q8H-IV BOBBY PRN Reason: Protocol Last Admin: 01/02/17 09:31 Dose: 100 mls/hr Dextrose/Sodium Chloride (D5-Ns -) 1,000 mls @ 42 mls/hr IV ASDIR [facility] Last Admin: 01/02/17 09:32 Dose: 42 mls/hr Methylprednisolone Sodium Succinate (Solu-Medrol -) 40 mg IVPB DAILY [facility] Stop: 01/06/17 12:14 Last Admin: 01/02/17 09:31 Dose: 40 mg - Objective Vital Signs: Vital Signs Temperature 98.0 F 01/02/17 08:00 Pulse Rate 129 H 01/02/17 10:18 Respiratory Rate 25 H 01/02/17 08:00 Blood Pressure 120/71 01/02/17 08:00 O2 Sat by Pulse Oximetry (%) 96 01/02/17 10:18 Constitutional: Yes: No Distress Cardiovascular: Yes: Regular Rate and Rhythm, S1, S2 Respiratory: Yes: Diminished Gastrointestinal: Yes: Normal Bowel Sounds, Soft. No: Tenderness Extremities: Yes: Other (+ erythema R great toe) Edema: No Labs: CBC, BMP 01/02/17 05:15 01/02/17 05:15 INR, PTT INR 1.11 (0.82-1.09) 12/31/16 22:25 Assessment/Plan Exacerbation COPD HCAP Sepsis secondary to pneumonia Lactic acidosis Renal failure- improved leukocytosis- improved Possible acute gouty arthritis Await c/s Continue respiratory support Continue zosyn Check uric acid ? treat for gout
--- NOTE | 2017-01-02 12:46 | PN ---
Progress Note, Physician History of Present Illness: Lethargic on bipap, hemodynamics stabilized, maintained on empiric abx and IVF. - Current Medication List Current Medications: Active Medications Albuterol/Ipratropium (Duoneb -) 1 amp NEB Q4H PRN Last Admin: 01/01/17 12:28 Dose: 1 amp Arformoterol Tartrate (Brovana (Restricted To Pulmonology/Resp) -) 1 amp NEB BID [facility] Last Admin: 01/02/17 10:50 Dose: 1 amp Heparin Sodium (Porcine) (Heparin -) 5,000 unit SQ BID [facility] Last Admin: 01/02/17 09:32 Dose: 5,000 unit Dopamine HCl 400,000 mcg/ (Sodium Chloride) 250 mls @ 3.92 mls/hr IV TITR BOBBY; 2 MCG/KG/MIN PRN Reason: Protocol Last Admin: 01/02/17 05:31 Dose: Not Given Azithromycin (Zithromax 500mg Ivpb (Pre-Docked)) 250 mls @ 250 mls/hr IVPB DAILY [facility] Last Admin: 01/02/17 09:24 Dose: 250 mls/hr Piperacillin Sod/Tazobactam Sod (Zosyn 2.25gm Ivpb (Pre-Docked)) 50 mls @ 100 mls/hr IVPB Q8H-IV BOBBY PRN Reason: Protocol Last Admin: 01/02/17 09:31 Dose: 100 mls/hr Dextrose/Sodium Chloride (D5-Ns -) 1,000 mls @ 42 mls/hr IV ASDIR [facility] Last Admin: 01/02/17 09:32 Dose: 42 mls/hr Methylprednisolone Sodium Succinate (Solu-Medrol -) 40 mg IVPB DAILY [facility] Stop: 01/06/17 12:14 Last Admin: 01/02/17 09:31 Dose: 40 mg - Objective Vital Signs: Vital Signs Temperature 98.3 F 01/02/17 10:00 Pulse Rate 129 H 01/02/17 11:52 Respiratory Rate 26 H 01/02/17 11:52 Blood Pressure 117/57 01/02/17 11:52 O2 Sat by Pulse Oximetry (%) 97 01/02/17 12:12 Constitutional: Yes: No Distress, Calm Neck: Yes: Supple Cardiovascular: Yes: Regular Rate and Rhythm Respiratory: Yes: Regular, Diminished, On BiPap Gastrointestinal: Yes: Normal Bowel Sounds, Soft Edema: No Labs: CBC, BMP 01/02/17 05:15 01/02/17 05:15 INR, PTT INR 1.11 (0.82-1.09) 12/31/16 22:25 - ....Imaging Cat Scan: Report Reviewed (Left renal vs adrenal mass) Problem List - Problems (1) Acute renal insufficiency Code(s): N28.9 - DISORDER OF KIDNEY AND URETER, UNSPECIFIED (2) Pneumonia Code(s): J18.9 - PNEUMONIA, UNSPECIFIED ORGANISM Qualifiers: Pneumonia type: due to unspecified organism Laterality: unspecified laterality Lung location: unspecified part of lung Qualified Code(s): J18.9 - Pneumonia, unspecified organism (3) Sepsis Code(s): A41.9 - SEPSIS, UNSPECIFIED ORGANISM Qualifiers: Sepsis type: sepsis due to unspecified organism Qualified Code(s): A41.9 - Sepsis, unspecified organism (4) COPD (chronic obstructive pulmonary disease) Code(s): J44.9 - CHRONIC OBSTRUCTIVE PULMONARY DISEASE, UNSPECIFIED Qualifiers : COPD type: unspecified COPD Qualified Code(s): J44.9 - Chronic obstructive pulmonary disease, unspecified (5) Hypercholesteremia Code(s): E78.00 - PURE HYPERCHOLESTEROLEMIA, UNSPECIFIED (6) Diastolic dysfunction without heart failure Code(s): I51.9 - HEART DISEASE, UNSPECIFIED (7) Sinus tachycardia seen on monitor and storage bin tender Code(s): R00.0 - TACHYCARDIA, UNSPECIFIED (8) Gout Code(s): M10.9 - GOUT, UNSPECIFIED Assessment/Plan 11/21/2016 Echocardiogram showed normal LV systolic function, mild MR and trace to mild TR 1. Acute on chronic hypercapneic respiratory failure, right PNA 2. Sinus tachycardia referable to #1 3. Post septic shock with lactic acidosis and leukocytosis off pressors 4. LV diastolic dysfunction with h/o failure 5. Acute kidney injury referable to hemodynamics alterations improving 6. Hyperlipidemia 7. ASHD, angina pectoris 8. PAD s/p PET SITTER, nonobstructive carotid disease 9. Gout PLAN: 1. Cont BiPAP and wean FIO2 for goal SPO2 92%, bronchodilators, antibiotics course per C&S, and IV steroids taper 2. Lasix 40mg as needed, losartan 25 qd held pending renal recovery. Resume carvedilol 3.125 bid with hemodynamic stability, Lipitor 20mg qhs qd, ASA 81mg qd, Pletal 100 bid 3. F/u urine studies 4. DVT and GI prophylaxis
--- NOTE | 2017-01-02 13:13 | PN ---
Teaching Attending Note Name of Resident: Sergo Vargas ATTENDING PHYSICIAN STATEMENT I saw and evaluated the patient. I reviewed the resident's note and discussed the case with the resident. I agree with the resident's findings and plan as documented. SUBJECTIVE: Patient seen and examined in the ICU. More awake on BiPAP. Off pressors. Intake & Output 12/30/16 12/31/16 01/01/17 01/02/17 23:59 23:59 23:59 23:59 Intake Total 2091 604 Output Total 250 Balance 2091 354 Weight 118 lb 120 lb 2 oz 121 lb 8 oz Last Vital Signs Temp Pulse Resp BP Pulse Ox 98.3 F 120 H 21 118/48 92 L 01/02/17 10:00 01/02/17 13:04 01/02/17 13:04 01/02/17 13:04 01/02/17 13:05 Active Medications Albuterol/Ipratropium (Duoneb -) 1 amp NEB Q4H PRN Last Admin: 01/01/17 12:28 Dose: 1 amp Arformoterol Tartrate (Brovana (Restricted To Pulmonology/Resp) -) 1 amp NEB BID [facility] Last Admin: 01/02/17 10:50 Dose: 1 amp Carvedilol (Coreg -) 3.125 mg PO BID [facility] Heparin Sodium (Porcine) (Heparin -) 5,000 unit SQ BID [facility] Last Admin: 01/02/17 09:32 Dose: 5,000 unit Azithromycin (Zithromax 500mg Ivpb (Pre-Docked)) 250 mls @ 250 mls/hr IVPB DAILY [facility] Last Admin: 01/02/17 09:24 Dose: 250 mls/hr Piperacillin Sod/Tazobactam Sod (Zosyn 2.25gm Ivpb (Pre-Docked)) 50 mls @ 100 mls/hr IVPB Q8H-IV BOBBY PRN Reason: Protocol Last Admin: 01/02/17 09:31 Dose: 100 mls/hr Dextrose/Sodium Chloride (D5-Ns -) 1,000 mls @ 42 mls/hr IV ASDIR [facility] Last Admin: 01/02/17 09:32 Dose: 42 mls/hr Methylprednisolone Sodium Succinate (Solu-Medrol -) 40 mg IVPB DAILY [facility] Stop: 01/06/17 12:14 Last Admin: 01/02/17 09:31 Dose: 40 mg Physical Exam Vital Signs: Constitutional: Yes: Awake and Tachypneic on BiPAP Eyes: Yes: PERRL HENT: Yes: Atraumatic, Normocephalic Neck: Yes: Supple, Trachea Midline Cardiovascular: Yes: Tachycardia, S1, S2 Respiratory: Yes: Accessory Muscle Use, On BiPAP, Rhonchi, Tachypnea, Wheezes Gastrointestinal: Yes: Normal Bowel Sounds, Soft ...Rectal Exam: Yes: Deferred Renal/: Yes: Incontinence Edema: No Peripheral Pulses WNL: Yes Integumentary: Yes: WNL Neurological: Yes: Lethargy Labs: Laboratory Results - last 24 hr 01/02/17 01/02/17 05:15 05:15 WBC 13.1 H RBC 3.87 L Hgb 10.6 L Hct 31.9 L MCV 82.4 MCHC 33.3 RDW 15.8 Plt Count 229 D MPV 8.0 Neutrophils % 94.2 H Lymphocytes % 2.4 L Monocytes % 3.3 L Eosinophils % 0.0 Basophils % 0.1 Sodium 141 Potassium 3.7 Chloride 102 Carbon Dioxide 25 Anion Gap 14 BUN 49 H Creatinine 1.8 H D Random Glucose 118 H D Calcium 8.4 L Phosphorus 4.3 Magnesium 2.7 H D Problem List - Problems (1) Acute renal insufficiency Code(s): N28.9 - DISORDER OF KIDNEY AND URETER, UNSPECIFIED (2) Pneumonia Code(s): J18.9 - PNEUMONIA, UNSPECIFIED ORGANISM Qualifiers: Pneumonia type: due to unspecified organism Laterality: unspecified laterality Lung location: unspecified part of lung Qualified Code(s): J18.9 - Pneumonia, unspecified organism (3) Sepsis Code(s): A41.9 - SEPSIS, UNSPECIFIED ORGANISM Qualifiers: Sepsis type: sepsis due to unspecified organism Qualified Code(s): A41.9 - Sepsis, unspecified organism (4) Acute on chronic diastolic (congestive) heart failure Code(s): I50.33 - ACUTE ON CHRONIC DIASTOLIC (CONGESTIVE) HEART FAILURE (5) CHF exacerbation Code(s): I50.9 - HEART FAILURE, UNSPECIFIED Qualifiers: Congestive heart failure type: unspecified congestive heart failure type Qualified Code(s): I50.9 - Heart failure, unspecified (6) COPD (chronic obstructive pulmonary disease) Code(s): J44.9 - CHRONIC OBSTRUCTIVE PULMONARY DISEASE, UNSPECIFIED Qualifiers : COPD type: unspecified COPD Qualified Code(s): J44.9 - Chronic obstructive pulmonary disease, unspecified Assessment/Plan Acute Respiratory Failure requiring NIPPV Peripheral arterial disease Gout Prostate CA BPH HTN CHF AMS Suspected PNA Leukocytosis PLAN: -Cont BiPAP and wean FIO2 for goal SPO2 92% -BD TX -ABX -NPO -Minimize IVF -Trial of Lasix with daily assessment for diurectics -DNR/DNI Dr Quinn Critical care time spent in reviewing chart, evaluating patient and formulating plan 35 min
[2017-01-02] MEDS: CARVEDILOL 3.125 MG TABLET (FP) PO SCH ×2 (14:04→22:17)
[2017-01-02] MEDS: FUROSEMIDE 40 MG/4 ML INJECTABLE VIAL IVPUSH SCH (14:05)
--- NOTE | 2017-01-02 15:13 | PN ---
Physical Exam: SUBJECTIVE: Patient seen and examined awake, alert, with bipap in place with labored breathing. OBJECTIVE: Vital Signs Period Temp Pulse Resp BP Sys/Gurrola Pulse Ox Last 24 Hr 97 F-99.5 F 112-130 19-26 95-172/48-86 90-100 GENERAL: awake, alert, in mod distress, HEAD: Normal with no signs of trauma. EYES: JOSE F sclera anicteric, conjunctiva clear. ENT: nares patent, edentulism. NECK: Trachea midline, no JVD, no lad. LUNGS: diffuse rhonchi throughout b/l lungs, tachypnea, accessory muscle use HEART: Regular rate and rhythm, S1, S2 without murmur ABDOMEN: Soft, nondistended, normoactive bowel sounds, no guarding EXTREMITIES: 2+ pulses, cool extremities, no edema. 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 Laboratory Results - last 24 hr 01/02/17 01/02/17 05:15 05:15 WBC 13.1 H RBC 3.87 L Hgb 10.6 L Hct 31.9 L MCV 82.4 MCHC 33.3 RDW 15.8 Plt Count 229 D MPV 8.0 Neutrophils % 94.2 H Lymphocytes % 2.4 L Monocytes % 3.3 L Eosinophils % 0.0 Basophils % 0.1 Sodium 141 Potassium 3.7 Chloride 102 Carbon Dioxide 25 Anion Gap 14 BUN 49 H Creatinine 1.8 H D Random Glucose 118 H D Calcium 8.4 L Phosphorus 4.3 Magnesium 2.7 H D Active Medications Generic Name Dose Route Start Last Admin Trade Name Freq PRN Reason Stop Dose Admin Albuterol/Ipratropium 1 amp 01/01/17 03:15 01/01/17 12:28 Duoneb - NEB 1 amp Q4H PRN Administration Arformoterol Tartrate 1 amp 01/01/17 13:15 01/02/17 10:50 Brovana (Restricted To Pulmonology/Resp) - NEB 1 amp BID [facility] Administration Carvedilol 3.125 mg 01/02/17 13:00 01/02/17 14:04 Coreg - PO 3.125 mg BID [facility] Administration Furosemide 40 mg 01/02/17 13:30 01/02/17 14:05 Lasix Injection - IVPUSH 40 mg DAILY [facility] Administration Heparin Sodium (Porcine) 5,000 unit 01/01/17 22:00 01/02/17 09:32 Heparin - SQ 5,000 unit BID [facility] Administration Azithromycin 250 mls @ 250 mls/hr 01/01/17 14:45 01/02/17 09:24 Zithromax 500mg Ivpb (Pre-Docked) IVPB 250 mls/hr DAILY [facility] Administration Piperacillin Sod/Tazobactam Sod 50 mls @ 100 mls/hr 01/01/17 14:45 01/02/17 09: 31 Zosyn 2.25gm Ivpb (Pre-Docked) IVPB 100 mls/hr Q8H-IV [facility] Administration Protocol Dextrose/Sodium Chloride 1,000 mls @ 42 mls/hr 01/01/17 17:03 01/02/17 09:32 D5-Ns - IV 42 mls/hr ASDIR [facility] Administration Methylprednisolone Sodium Succinate 40 mg 01/01/17 12:15 01/02/17 09:31 Solu-Medrol - IVPB 01/06/17 12:14 40 mg DAILY [facility] Administration ASSESSMENT/PLAN: 86 yr old man with COPD/emphysema, CVA, PAD, HTN, CHF admitted for acute respiratory failure, suspected SU-pneumonia causing septic shock. Code status: DNR/DNI family to decide GOC. Pulmonary Acute on chronic hypoxic hypercapnic respiratory failure requiring Bipap, possible multifactorial cause from chf exacerbation and pna - improved. - continue Bipap to maintain sat >90% (86-92%, pt is o2 dependent, chronic co2 retainer) - solumedril 40mg IVPB for 5 days - Brovana 1amp neb BID geeta - duonebs 1 amp neb q4hr prn Cardiovascular Acute on chronic LV-diastolic CHF; elevated BNP maintain MAP >65 IVF minimized, trial of lasix to avoid off dopamin drip Hold duiretics and anit-HTN meds until BP improves Consult: Dr. Nguyen ACEVEDO NPO while on Bipap, hold oral medications IVF ID [facility] Associated pnuemonia- right lower lobe infiltrate, leucocytosis zithromycin 500ivpb qdaily Zosyn 2.25gm ivpb q8hr bld cx pending -- abx day 2 consult: Dr. Fuentes Renal BIANCA - improved with IVF - replete serum electrolytes, Mg>2.0, K+>4 - renal ultrasound for further investigation: soft tissue massslike density inseparable from left renal upper pole. Consult: Dr. Carrington Neurological AMS secondary to hypoxic respiratory failure vs sepsis, improved Fluids:d/c fluids Electrolytes: replete Magnesium Diet: NPO DVT:SCD's Visit type - Emergency Visit Emergency Visit: No - New Patient This patient is new to me today: No - Critical Care Critical Care patient: Yes Total Critical Care Time (in minutes): 37 Critical Care Statement: The care of this patient involved high complexity decision making to prevent further life threatening deterioration of the patient 's condition and/or to evalute & treat vital organ system(s) failure or risk of failure.
[2017-01-02] MEDS ORDERED: DEXTROSE 5%-NORMAL SALINE 1,000 ML IV SCH (15:40)
--- NOTE | 2017-01-02 15:40 | PN ---
Progress Note, Physician History of Present Illness: Pt seen and examined at bedside. He remains in the ICU. He remains on Bipap. - Current Medication List Current Medications: Active Medications Albuterol/Ipratropium (Duoneb -) 1 amp NEB Q4H PRN Last Admin: 01/01/17 12:28 Dose: 1 amp Arformoterol Tartrate (Brovana (Restricted To Pulmonology/Resp) -) 1 amp NEB BID [facility] Last Admin: 01/02/17 10:50 Dose: 1 amp Carvedilol (Coreg -) 3.125 mg PO BID [facility] Last Admin: 01/02/17 14:04 Dose: 3.125 mg Furosemide (Lasix Injection -) 40 mg IVPUSH DAILY [facility] Last Admin: 01/02/17 14:05 Dose: 40 mg Heparin Sodium (Porcine) (Heparin -) 5,000 unit SQ BID [facility] Last Admin: 01/02/17 09:32 Dose: 5,000 unit Azithromycin (Zithromax 500mg Ivpb (Pre-Docked)) 250 mls @ 250 mls/hr IVPB DAILY [facility] Last Admin: 01/02/17 09:24 Dose: 250 mls/hr Piperacillin Sod/Tazobactam Sod (Zosyn 2.25gm Ivpb (Pre-Docked)) 50 mls @ 100 mls/hr IVPB Q8H-IV [facility] PRN Reason: Protocol Last Admin: 01/02/17 09:31 Dose: 100 mls/hr Dextrose/Sodium Chloride (D5-Ns -) 1,000 mls @ 42 mls/hr IV ASDIR [facility] Last Admin: 01/02/17 09:32 Dose: 42 mls/hr Methylprednisolone Sodium Succinate (Solu-Medrol -) 40 mg IVPB DAILY [facility] Stop: 01/06/17 12:14 Last Admin: 01/02/17 09:31 Dose: 40 mg - Objective Vital Signs: Vital Signs Temperature 98.1 F 01/02/17 14:32 Pulse Rate 127 H 01/02/17 14:32 Respiratory Rate 19 01/02/17 14:32 Blood Pressure 121/52 01/02/17 14:32 O2 Sat by Pulse Oximetry (%) 93 L 01/02/17 14:25 Constitutional: Yes: Calm Eyes: Yes: Conjunctiva Clear Neck: Yes: Supple Cardiovascular: Yes: S1, S2 Respiratory: Yes: On Venti-Mask Gastrointestinal: Yes: Soft Genitourinary: Yes: Incontinence Musculoskeletal: Yes: Muscle Weakness Edema: No Neurological: Yes: Oriented Labs: CBC, BMP 01/02/17 05:15 01/02/17 05:15 INR, PTT INR 1.11 (0.82-1.09) 12/31/16 22:25 - ....Imaging Chest X-ray: Report Reviewed Problem List - Problems (1) Acute renal insufficiency Code(s): N28.9 - DISORDER OF KIDNEY AND URETER, UNSPECIFIED (2) Pneumonia Code(s): J18.9 - PNEUMONIA, UNSPECIFIED ORGANISM Qualifiers: Pneumonia type: due to unspecified organism Laterality: unspecified laterality Lung location: unspecified part of lung Qualified Code(s): J18.9 - Pneumonia, unspecified organism (3) Acute on chronic diastolic (congestive) heart failure Code(s): I50.33 - ACUTE ON CHRONIC DIASTOLIC (CONGESTIVE) HEART FAILURE Assessment/Plan Current Medications Generic Name Dose Route Start Last Admin Trade Name Freq PRN Reason Stop Dose Admin Albuterol/Ipratropium 1 amp 01/01/17 03:15 01/01/17 12:28 Duoneb - NEB 1 amp Q4H PRN Administration Arformoterol Tartrate 1 amp 01/01/17 13:15 01/02/17 10:50 Brovana (Restricted To Pulmonology/Resp) - NEB 1 amp BID [facility] Administration Carvedilol 3.125 mg 01/02/17 13:00 01/02/17 14:04 Coreg - PO 3.125 mg BID [facility] Administration Furosemide 40 mg 01/02/17 13:30 01/02/17 14:05 Lasix Injection - IVPUSH 40 mg DAILY [facility] Administration Heparin Sodium (Porcine) 5,000 unit 01/01/17 22:00 01/02/17 09:32 Heparin - SQ 5,000 unit BID [facility] Administration Azithromycin 250 mls @ 250 mls/hr 01/01/17 14:45 01/02/17 09:24 Zithromax 500mg Ivpb (Pre-Docked) IVPB 250 mls/hr DAILY [facility] Administration Piperacillin Sod/Tazobactam Sod 50 mls @ 100 mls/hr 01/01/17 14:45 05/12/17 09: 31 Zosyn 2.25gm Ivpb (Pre-Docked) IVPB 100 mls/hr Q8H-IV [facility] Administration Protocol Dextrose/Sodium Chloride 1,000 mls @ 42 mls/hr 01/01/17 17:03 01/02/17 09:32 D5-Ns - IV 42 mls/hr ASDIR [facility] Administration Methylprednisolone Sodium Succinate 40 mg 01/01/17 12:15 01/02/17 09:31 Solu-Medrol - IVPB 01/06/17 12:14 40 mg DAILY [facility] Administration Impression 1. BIANCA 2. resp failure requiring bipap 3. hx CHF 4. hypotension 5. sepsis 6. CAD 7. COPD Plan - renal function is improved with fluids - cxr reviewed - discussed case with ICU team - monitor lytes - check renal ultrasound and creatinine - repeat labs in am - likely bianca from hypotension - pressors to a map of 65 - monitor in ICU Dr Carrington
[2017-01-02] MEDS: morphine CARPU-JECT 2 MG/1 ML DISP.SYRIN IVPUSH PRN ×2 (17:25→22:18)
[2017-01-02] MEDS ORDERED: METOPROLOL TARTRATE 5 MG/5 ML VIAL IVPUSH ONE (18:30)
--- NOTE | 2017-01-02 19:36 | PN ---
Progress Note, Physician Chief Complaint: FAMILY BEDSIDE PATIENT IN OBVIOUS DISTRESS ON BIPAP +BACK PAIN - Current Medication List Current Medications: Active Medications Albuterol/Ipratropium (Duoneb -) 1 amp NEB Q4H PRN Last Admin: 01/01/17 12:28 Dose: 1 amp Arformoterol Tartrate (Brovana (Restricted To Pulmonology/Resp) -) 1 amp NEB BID [facility] Last Admin: 01/02/17 10:50 Dose: 1 amp Carvedilol (Coreg -) 3.125 mg PO BID [facility] Last Admin: 01/02/17 14:04 Dose: 3.125 mg Furosemide (Lasix Injection -) 40 mg IVPUSH DAILY [facility] Last Admin: 01/02/17 14:05 Dose: 40 mg Heparin Sodium (Porcine) (Heparin -) 5,000 unit SQ BID [facility] Last Admin: 01/02/17 09:32 Dose: 5,000 unit Azithromycin (Zithromax 500mg Ivpb (Pre-Docked)) 250 mls @ 250 mls/hr IVPB DAILY [facility] Last Admin: 01/02/17 09:24 Dose: 250 mls/hr Piperacillin Sod/Tazobactam Sod (Zosyn 2.25gm Ivpb (Pre-Docked)) 50 mls @ 100 mls/hr IVPB Q8H-IV [facility] PRN Reason: Protocol Last Admin: 01/02/17 17:47 Dose: 100 mls/hr Dextrose/Sodium Chloride (D5-Ns -) 1,000 mls @ 35 mls/hr IV ASDIR [facility] Last Admin: 01/02/17 17:00 Dose: 35 mls/hr Methylprednisolone Sodium Succinate (Solu-Medrol -) 40 mg IVPB DAILY [facility] Stop: 01/06/17 12:14 Last Admin: 01/02/17 09:31 Dose: 40 mg Morphine Sulfate (Morphine Injection -) 2 mg IVPUSH Q4H PRN PRN Reason: PAIN Last Admin: 01/02/17 17:25 Dose: 2 mg - Objective Vital Signs: Vital Signs Temperature 97.4 F L 01/02/17 17:48 Pulse Rate 130 H 01/02/17 17:48 Respiratory Rate 24 01/02/17 17:48 Blood Pressure 160/87 01/02/17 17:48 O2 Sat by Pulse Oximetry (%) 97 01/02/17 19:05 Constitutional: Yes: Moderate Distress Eyes: Yes: WNL HENT: Yes: WNL Neck: Yes: WNL Cardiovascular: Yes: Tachycardia, Murmur Respiratory: Yes: On BiPap, Poor Air Entry, SOB Gastrointestinal: Yes: WNL Genitourinary: Yes: Incontinence Musculoskeletal: Yes: Back Pain, Muscle Weakness Extremities: Yes: WNL Edema: No Peripheral Pulses WNL: Yes Integumentary: Yes: WNL Wound/Incision: Yes: Clean/Dry Neurological: Yes: Pre-Existing Deficit, Unsteady Gait ...Motor Strength: LLE, RLE Psychiatric: Yes: Other Labs: CBC, BMP 01/02/17 05:15 01/02/17 05:15 INR, PTT INR 1.11 (0.82-1.09) 12/31/16 22:25 Problem List - Problems (1) Acute renal insufficiency Code(s): N28.9 - DISORDER OF KIDNEY AND URETER, UNSPECIFIED (2) Pneumonia Code(s): J18.9 - PNEUMONIA, UNSPECIFIED ORGANISM Qualifiers: Pneumonia type: due to unspecified organism Laterality: unspecified laterality Lung location: unspecified part of lung Qualified Code(s): J18.9 - Pneumonia, unspecified organism (3) Acute on chronic diastolic (congestive) heart failure Code(s): I50.33 - ACUTE ON CHRONIC DIASTOLIC (CONGESTIVE) HEART FAILURE (4) Anemia Code(s): D64.9 - ANEMIA, UNSPECIFIED (5) CHF exacerbation Code(s): I50.9 - HEART FAILURE, UNSPECIFIED Qualifiers: Congestive heart failure type: unspecified congestive heart failure type Qualified Code(s): I50.9 - Heart failure, unspecified (6) COPD (chronic obstructive pulmonary disease) Code(s): J44.9 - CHRONIC OBSTRUCTIVE PULMONARY DISEASE, UNSPECIFIED Qualifiers : COPD type: unspecified COPD Qualified Code(s): J44.9 - Chronic obstructive pulmonary disease, unspecified Assessment/Plan PATIENT IS DNR/DNI ADDRESSED WITH FAMILY BIPAP FOR RESP SUPPORT WEAN OFF TOLERATED IV LASIX 40MG DAILY IV ABX PNEUMONIA PULMONARY AND ID F/U APPRECIATED FAMILY BEDSIDE LONG DISCUSSION ABOUT SUPPORT AND PLANS FOR HOME CARE IF PATIENT DOES GET BETTER VS SNF 30 MIN OF ICU TIME SPENT WITH FAMILY
[2017-01-03] MEDS: PIPERACILLIN/TAZOB 2.25 GM 50 ML IVPB SCH (01:53)
[2017-01-03 06:29] LABS: MCH 27.2 pg (25.7-33.7); MCHC 33.1 g/dl (32.0-35.9); MEAN CELL VOLUME 82.1 fl (80-96); MEAN PLT VOLUME 8.5 fl (7.5-11.1); PLATELET COUNT 265 K/MM3 (134-434); RDW 16.5 % (11.9-15.9)
[2017-01-03 07:09] LABS: CALCIUM 8.5 mg/dL (8.5-10.1); COCKROFT - GAULT 37.8; CREATININE 1.1 mg/dL (0.7-1.3); MAGNESIUM 2.2 mg/dL (1.8-2.4); PHOSPHOROUS 2.5 mg/dL (2.5-4.9)
[2017-01-03 07:51] LABS: ARTERIAL BLD GAS O2 SATURATION 99.9 % (90-98.9); ARTERIAL BLOOD GAS BASE EXCESS 2.5 meq/l (-2-2); ARTERIAL BLOOD GAS HCO3 26.2 meq/L (22-26); ARTERIAL BLOOD GAS pH 7.44 (7.35-7.45)
[2017-01-03 07:59] LABS: ALLENS TEST POSITIVE; ART PUNCT SITE RIGHT RADIAL; LPM/O2% 60%; PT. ON O2? YES
[2017-01-03 08:00] LABS: MECH. VENT. BIPAP; TYPE OF O2 BIPAP EPAP 10; VENT RATE 16; VT/PRESS IPAP 20
[2017-01-03] MEDS: KCL 10 MEQ IVPB 100 ML IVPB SCH ×7 (09:00→20:30)
--- NOTE | 2017-01-03 09:07 | PN ---
Progress Note, Physician History of Present Illness: Lethargic on ventilator Slightly tachypneic on bipap Tachycardic Afebrile WBC mildly elevated Azotemia resolved CXR today shows patchy RUL, RLL infiltrates - Current Medication List Current Medications: Active Medications Albuterol/Ipratropium (Duoneb -) 1 amp NEB Q4H PRN Last Admin: 01/01/17 12:28 Dose: 1 amp Arformoterol Tartrate (Brovana (Restricted To Pulmonology/Resp) -) 1 amp NEB BID [facility] Last Admin: 01/02/17 22:00 Dose: 1 amp Carvedilol (Coreg -) 3.125 mg PO BID [facility] Last Admin: 01/02/17 22:17 Dose: 3.125 mg Furosemide (Lasix Injection -) 40 mg IVPUSH DAILY [facility] Last Admin: 01/02/17 14:05 Dose: 40 mg Heparin Sodium (Porcine) (Heparin -) 5,000 unit SQ BID [facility] Last Admin: 01/02/17 22:17 Dose: 5,000 unit Azithromycin (Zithromax 500mg Ivpb (Pre-Docked)) 250 mls @ 250 mls/hr IVPB DAILY [facility] Last Admin: 01/02/17 09:24 Dose: 250 mls/hr Piperacillin Sod/Tazobactam Sod (Zosyn 2.25gm Ivpb (Pre-Docked)) 50 mls @ 100 mls/hr IVPB Q8H-IV [facility] PRN Reason: Protocol Last Admin: 01/03/17 01:53 Dose: 100 mls/hr Dextrose/Sodium Chloride (D5-Ns -) 1,000 mls @ 35 mls/hr IV ASDIR [facility] Last Admin: 01/02/17 17:00 Dose: 35 mls/hr Methylprednisolone Sodium Succinate (Solu-Medrol -) 40 mg IVPB DAILY [facility] Stop: 01/06/17 12:14 Last Admin: 01/02/17 09:31 Dose: 40 mg Morphine Sulfate (Morphine Injection -) 2 mg IVPUSH Q4H PRN PRN Reason: PAIN Last Admin: 01/02/17 22:18 Dose: 2 mg - Objective Vital Signs: Vital Signs Temperature 98.2 F 01/03/17 06:00 Pulse Rate 128 H 01/03/17 06:00 Respiratory Rate 22 01/03/17 06:00 Blood Pressure 143/66 01/03/17 06:00 O2 Sat by Pulse Oximetry (%) 96 01/02/17 21:00 Constitutional: Yes: No Distress Eyes: Yes: Conjunctiva Clear Cardiovascular: Yes: Regular Rate and Rhythm, Tachycardia, S1, S2 Respiratory: Yes: Diminished Gastrointestinal: Yes: Normal Bowel Sounds, Soft. No: Tenderness Extremities: Yes: Other (R great toe red, slightly swollen) Edema: No Labs: CBC, BMP 01/03/17 05:30 01/03/17 05:30 INR, PTT INR 1.11 (0.82-1.09) 12/31/16 22:25 Assessment/Plan Exacerbation COPD HCAP Sepsis secondary to pneumonia Lactic acidosis Renal failure- resolved leukocytosis Possible acute gouty arthritis Await c/s Continue respiratory support Continue zosyn/ zithromax. Adjust for improved renal function Check uric acid ? treat for gout
[2017-01-03] MEDS: ARFORMOTEROL TARTRATE 15 MCG/2 ML VIAL NEB SCH ×2 (09:35→22:00)
--- NOTE | 2017-01-03 09:49 | PN ---
Progress Note (short form) - Note Progress Note: PULMONARY/CCM Pt seen and examined in the ICU. Remains dependent on BiPAP, desaturates quickly when off. Last Vital Signs Temp Pulse Resp BP Pulse Ox 98.2 F 128 H 22 143/66 96 01/03/17 06:00 01/03/17 06:00 01/03/17 06:00 01/03/17 06:00 01/03/17 09:39 Intake & Output 12/31/16 01/01/17 01/02/17 01/03/17 23:59 23:59 23:59 23:59 Intake Total 1 1394 470 Output Total 500 Balance 1 894 470 Weight 118 lb 120 lb 2 oz 121 lb 8 oz 122 lb 6.4 oz Gen: somnolent but arousable, tachypneic Heart: tachycardic, regular Lung: distant breath sounds Abd: soft, nontender Ext: no edema CBC, BMP 01/03/17 05:30 01/03/17 05:30 ABG Results ABG pH 7.44 (7.35-7.45) D 01/03/17 07:50 ABG pCO2 at Pt Temp 39.1 mmHg (35-45) D 01/03/17 07:50 ABG pO2 at Pt Temp 206.0 mmHg (68-100) H* D 01/03/17 07:50 ABG HCO3 26.2 meq/L (22-26) H 01/03/17 07:50 ABG O2 Sat (Measured) 99.9 % (90-98.9) H* 01/03/17 07:50 ABG O2 Content 16.6 % vol (15-22) 01/03/17 07:50 ABG Base Excess 2.5 meq/l (-2-2) H 01/03/17 07:50 Active Medications Albuterol/Ipratropium (Duoneb -) 1 amp NEB Q4H PRN Last Admin: 01/01/17 12:28 Dose: 1 amp Arformoterol Tartrate (Brovana (Restricted To Pulmonology/Resp) -) 1 amp NEB BID [facility] Last Admin: 01/03/17 09:35 Dose: 1 amp Carvedilol (Coreg -) 3.125 mg PO BID [facility] Last Admin: 01/02/17 22:17 Dose: 3.125 mg Furosemide (Lasix Injection -) 40 mg IVPUSH DAILY [facility] Last Admin: 01/02/17 14:05 Dose: 40 mg Heparin Sodium (Porcine) (Heparin -) 5,000 unit SQ BID [facility] Last Admin: 01/02/17 22:17 Dose: 5,000 unit Azithromycin (Zithromax 500mg Ivpb (Pre-Docked)) 250 mls @ 250 mls/hr IVPB DAILY [facility] Last Admin: 01/02/17 09:24 Dose: 250 mls/hr Dextrose/Sodium Chloride (D5-Ns -) 1,000 mls @ 35 mls/hr IV ASDIR [facility] Last Admin: 01/02/17 17:00 Dose: 35 mls/hr Piperacillin Sod/Tazobactam Sod (Zosyn 3.375gm Ivpb (Pre-Docked)) 50 mls @ 100 mls/hr IVPB Q8H-IV [facility] PRN Reason: Protocol Methylprednisolone Sodium Succinate (Solu-Medrol -) 40 mg IVPB DAILY [facility] Stop: 01/06/17 12:14 Last Admin: 01/02/17 09:31 Dose: 40 mg Morphine Sulfate (Morphine Injection -) 2 mg IVPUSH Q4H PRN PRN Reason: PAIN Last Admin: 01/02/17 22:18 Dose: 2 mg A/P Acute Hypoxic Respiratory Failure Pneumonia Acute COPD Exacerbation Severe Sepsis Acute Kidney Injury improving Lactic Acidosis resolved LV Diastolic Dysfunction CAD PAD Hyperlipidemia Gout - continue antibiotics - lasix - monitor urine output, creatinine - beta merary - continue medrol - inhaled bronchodilators standing and PRN - taper FiO2 to keep SpO2 >90% - BiPAP to assist in work of breathing - aspiration precautions - DVT/GI prophyalxis - continue ICU monitoring critical care time spent in reviewing chart, evaluating patient and formulating plan 35 min
[2017-01-03] MEDS: FUROSEMIDE 40 MG/4 ML INJECTABLE VIAL IVPUSH SCH (10:38)
[2017-01-03] MEDS: methylPREDNISolone NA SUCC 40 MG/1 ML VIAL IVPB SCH (10:38)
[2017-01-03] MEDS: AZITHROMYCIN IVPB 250 ML IVPB SCH (10:38)
[2017-01-03] MEDS: PIPERACILLIN/TAZOB 3.375 GM 50 ML IVPB SCH ×2 (10:40→17:27)
[2017-01-03] MEDS: HEPARIN NA (PORCINE) 5,000 UNITS/ML 1ML VIAL SQ SCH ×2 (10:48→21:25)
[2017-01-03] MEDS: CARVEDILOL 3.125 MG TABLET (FP) PO SCH ×2 (10:53→21:25)
[2017-01-03] MEDS: morphine CARPU-JECT 2 MG/1 ML DISP.SYRIN IVPUSH PRN ×3 (11:14→21:47)
--- NOTE | 2017-01-03 12:27 | PN ---
Progress Note, Physician History of Present Illness: Pt seen and examined at bedside. He remains in the ICU. He remains on Bipap. - Current Medication List Current Medications: Active Medications Albuterol/Ipratropium (Duoneb -) 1 amp NEB Q4H PRN Last Admin: 01/01/17 12:28 Dose: 1 amp Arformoterol Tartrate (Brovana (Restricted To Pulmonology/Resp) -) 1 amp NEB BID [facility] Last Admin: 01/03/17 09:35 Dose: 1 amp Carvedilol (Coreg -) 3.125 mg PO BID [facility] Last Admin: 01/03/17 10:53 Dose: 3.125 mg Furosemide (Lasix Injection -) 40 mg IVPUSH DAILY [facility] Last Admin: 01/03/17 10:38 Dose: 40 mg Heparin Sodium (Porcine) (Heparin -) 5,000 unit SQ BID [facility] Last Admin: 01/03/17 10:48 Dose: 5,000 unit Azithromycin (Zithromax 500mg Ivpb (Pre-Docked)) 250 mls @ 250 mls/hr IVPB DAILY [facility] Last Admin: 01/03/17 10:38 Dose: 250 mls/hr Dextrose/Sodium Chloride (D5-Ns -) 1,000 mls @ 35 mls/hr IV ASDIR [facility] Last Admin: 01/02/17 17:00 Dose: 35 mls/hr Piperacillin Sod/Tazobactam Sod (Zosyn 3.375gm Ivpb (Pre-Docked)) 50 mls @ 100 mls/hr IVPB Q8H-IV [facility] PRN Reason: Protocol Last Admin: 01/03/17 10:40 Dose: 100 mls/hr Potassium Chloride (Potassium Chloride 10 Meq Premix Ivpb -) 100 mls @ 100 mls/ hr IVPB Q60M [facility] Stop: 01/03/17 13:59 Last Admin: 01/03/17 12:00 Dose: 100 mls/hr Methylprednisolone Sodium Succinate (Solu-Medrol -) 40 mg IVPB DAILY [facility] Stop: 01/06/17 12:14 Last Admin: 01/03/17 10:38 Dose: 40 mg Morphine Sulfate (Morphine Injection -) 2 mg IVPUSH Q4H PRN PRN Reason: PAIN Last Admin: 01/03/17 11:14 Dose: 2 mg - Objective Vital Signs: Vital Signs Temperature 98.2 F 01/03/17 12:00 Pulse Rate 137 H 01/03/17 12:00 Respiratory Rate 18 01/03/17 12:00 Blood Pressure 113/70 01/03/17 12:00 O2 Sat by Pulse Oximetry (%) 96 01/03/17 09:39 Constitutional: Yes: Calm Eyes: Yes: Conjunctiva Clear HENT: Yes: Atraumatic Neck: Yes: Supple Cardiovascular: Yes: Tachycardia, S1, S2 Respiratory: Yes: On BiPap Gastrointestinal: Yes: Soft Genitourinary: Yes: Incontinence Musculoskeletal: Yes: Muscle Weakness Edema: No Neurological: Yes: Lethargy Labs: CBC, BMP 01/03/17 05:30 01/03/17 05:30 INR, PTT INR 1.11 (0.82-1.09) 12/31/16 22:25 - ....Imaging Chest X-ray: Report Reviewed Problem List - Problems (1) Acute renal insufficiency Code(s): N28.9 - DISORDER OF KIDNEY AND URETER, UNSPECIFIED (2) Pneumonia Code(s): J18.9 - PNEUMONIA, UNSPECIFIED ORGANISM Qualifiers: Pneumonia type: due to unspecified organism Laterality: unspecified laterality Lung location: unspecified part of lung Qualified Code(s): J18.9 - Pneumonia, unspecified organism (3) Acute on chronic diastolic (congestive) heart failure Code(s): I50.33 - ACUTE ON CHRONIC DIASTOLIC (CONGESTIVE) HEART FAILURE Assessment/Plan Current Medications Generic Name Dose Route Start Last Admin Trade Name Freq PRN Reason Stop Dose Admin Albuterol/Ipratropium 1 amp 01/01/17 03:15 01/01/17 12:28 Duoneb - NEB 1 amp Q4H PRN Administration Arformoterol Tartrate 1 amp 01/01/17 13:15 01/03/17 09:35 Brovana (Restricted To Pulmonology/Resp) - NEB 1 amp BID [facility] Administration Carvedilol 3.125 mg 01/02/17 13:00 01/03/17 10:53 Coreg - PO 3.125 mg BID [facility] Administration Furosemide 40 mg 01/02/17 13:30 01/03/17 10:38 Lasix Injection - IVPUSH 40 mg DAILY [facility] Administration Heparin Sodium (Porcine) 5,000 unit 01/01/17 22:00 01/03/17 10:48 Heparin - SQ 5,000 unit BID [facility] Administration Azithromycin 250 mls @ 250 mls/hr 01/01/17 14:45 01/03/17 10:38 Zithromax 500mg Ivpb (Pre-Docked) IVPB 250 mls/hr DAILY [facility] Administration Dextrose/Sodium Chloride 1,000 mls @ 35 mls/hr 01/02/17 15:40 01/02/17 17:00 D5-Ns - IV 35 mls/hr ASDIR [facility] Administration Piperacillin Sod/Tazobactam Sod 50 mls @ 100 mls/hr 01/03/17 10:00 01/03/17 10: 40 Zosyn 3.375gm Ivpb (Pre-Docked) IVPB 100 mls/hr Q8H-IV [facility] Administration Protocol Potassium Chloride 100 mls @ 100 mls/hr 01/03/17 10:00 01/03/17 12:00 Potassium Chloride 10 Meq Premix Ivpb - IVPB 01/03/17 13:59 100 mls/hr Q60M [facility] Administration Methylprednisolone Sodium Succinate 40 mg 01/01/17 12:15 01/03/17 10:38 Solu-Medrol - IVPB 01/06/17 12:14 40 mg DAILY [facility] Administration Morphine Sulfate 2 mg 01/02/17 16:52 01/03/17 11:14 Morphine Injection - IVPUSH 2 mg Q4H PRN Administration PAIN Impression 1. BIANCA 2. resp failure requiring bipap 3. hx CHF 4. hypotension 5. sepsis 6. CAD 7. COPD Plan - replace potassium - can add kcl to maitenance as well - will need to check repeat level after riders - renal function is improving - likely bianca from hypotension - pressors to a map of 65 - monitor in ICU Dr Carrington
[2017-01-03 12:50] LABS: NEUTROPHILS 93.9 % (42.8-82.8)
[2017-01-03] MEDS: POTASSIUM CHLORIDE 10 MEQ in DEXTROSE 5%-NORMAL SALINE 1,000 ML IVPB SCH (13:37)
[2017-01-03 16:11] LABS: CALCIUM 8.6 mg/dL (8.5-10.1); COCKROFT - GAULT 37.8; CREATININE 1.1 mg/dL (0.7-1.3); MAGNESIUM 2.1 mg/dL (1.8-2.4)
--- NOTE | 2017-01-03 16:59 | PN ---
Progress Note, Physician Chief Complaint: PATIENT ASLEEP ON BIPAP MOD DISTRESS MARKEL BEDSIDE - Current Medication List Current Medications: Active Medications Albuterol/Ipratropium (Duoneb -) 1 amp NEB Q4H PRN Last Admin: 01/01/17 12:28 Dose: 1 amp Arformoterol Tartrate (Brovana (Restricted To Pulmonology/Resp) -) 1 amp NEB BID [facility] Last Admin: 01/03/17 09:35 Dose: 1 amp Carvedilol (Coreg -) 3.125 mg PO BID [facility] Last Admin: 01/03/17 10:53 Dose: 3.125 mg Furosemide (Lasix Injection -) 40 mg IVPUSH DAILY [facility] Last Admin: 01/03/17 10:38 Dose: 40 mg Heparin Sodium (Porcine) (Heparin -) 5,000 unit SQ BID [facility] Last Admin: 01/03/17 10:48 Dose: 5,000 unit Azithromycin (Zithromax 500mg Ivpb (Pre-Docked)) 250 mls @ 250 mls/hr IVPB DAILY [facility] Last Admin: 01/03/17 10:38 Dose: 250 mls/hr Piperacillin Sod/Tazobactam Sod (Zosyn 3.375gm Ivpb (Pre-Docked)) 50 mls @ 100 mls/hr IVPB Q8H-IV [facility] PRN Reason: Protocol Last Admin: 01/03/17 10:40 Dose: 100 mls/hr Potassium Chloride 10 meq/ (Dextrose/Sodium Chloride) 1,005 mls @ 35 mls/hr IVPB Q24H [facility] Last Admin: 01/03/17 13:37 Dose: 35 mls/hr Methylprednisolone Sodium Succinate (Solu-Medrol -) 40 mg IVPB DAILY [facility] Stop: 01/06/17 12:14 Last Admin: 01/03/17 10:38 Dose: 40 mg Morphine Sulfate (Morphine Injection -) 2 mg IVPUSH Q4H PRN PRN Reason: PAIN Last Admin: 01/03/17 14:21 Dose: 2 mg - Objective Vital Signs: Vital Signs Temperature 98.2 F 01/03/17 12:00 Pulse Rate 132 H 01/03/17 14:00 Respiratory Rate 21 01/03/17 14:00 Blood Pressure 126/96 01/03/17 14:00 O2 Sat by Pulse Oximetry (%) 100 01/03/17 16:16 Constitutional: Yes: Moderate Distress Eyes: Yes: WNL HENT: Yes: WNL Neck: Yes: WNL Cardiovascular: Yes: Tachycardia Respiratory: Yes: On BiPap, Poor Air Entry, Rhonchi Gastrointestinal: Yes: WNL Genitourinary: Yes: Incontinence Musculoskeletal: Yes: Muscle Weakness Extremities: Yes: WNL Edema: No Peripheral Pulses WNL: Yes Integumentary: Yes: WNL Wound/Incision: Yes: Clean/Dry Neurological: Yes: Pre-Existing Deficit ...Motor Strength: LLE, RLE Psychiatric: Yes: Other Labs: CBC, BMP 01/03/17 05:30 01/03/17 14:30 INR, PTT INR 1.11 (0.82-1.09) 12/31/16 22:25 Problem List - Problems (1) Acute renal insufficiency Code(s): N28.9 - DISORDER OF KIDNEY AND URETER, UNSPECIFIED (2) Pneumonia Code(s): J18.9 - PNEUMONIA, UNSPECIFIED ORGANISM Qualifiers: Pneumonia type: due to unspecified organism Laterality: unspecified laterality Lung location: unspecified part of lung Qualified Code(s): J18.9 - Pneumonia, unspecified organism (3) Acute on chronic diastolic (congestive) heart failure Code(s): I50.33 - ACUTE ON CHRONIC DIASTOLIC (CONGESTIVE) HEART FAILURE (4) Anemia Code(s): D64.9 - ANEMIA, UNSPECIFIED (5) CHF exacerbation Code(s): I50.9 - HEART FAILURE, UNSPECIFIED Qualifiers: Congestive heart failure type: unspecified congestive heart failure type Qualified Code(s): I50.9 - Heart failure, unspecified (6) COPD (chronic obstructive pulmonary disease) Code(s): J44.9 - CHRONIC OBSTRUCTIVE PULMONARY DISEASE, UNSPECIFIED Qualifiers : COPD type: unspecified COPD Qualified Code(s): J44.9 - Chronic obstructive pulmonary disease, unspecified Assessment/Plan PATIENT IS DNR/DNI ADDRESSED WITH FAMILY BIPAP FOR RESP SUPPORT WEAN OFF TOLERATED K+ LOW 2.9 AND REPLETED IV LASIX 40MG DAILY IV ABX PNEUMONIA PULMONARY AND ID F/U APPRECIATED FAMILY BEDSIDE LONG DISCUSSION ABOUT SUPPORT AND PLANS FOR HOME CARE IF PATIENT DOES GET BETTER VS SNF 30 MIN OF ICU TIME SPENT WITH FAMILY
[2017-01-04] MEDS: PIPERACILLIN/TAZOB 3.375 GM 50 ML IVPB SCH ×3 (02:46→19:19)
[2017-01-04] MEDS: morphine CARPU-JECT 2 MG/1 ML DISP.SYRIN IVPUSH PRN ×2 (02:46→19:32)
--- NOTE | 2017-01-04 08:29 | PN ---
Progress Note, Physician Chief Complaint: Renal f/u Pt in no distress On CPAP No eating Azotemia stable as of yesterday Na 145 on NS with K Borderline low BP with tachycardia - Current Medication List Current Medications: Active Medications Albuterol/Ipratropium (Duoneb -) 1 amp NEB Q4H PRN Last Admin: 01/01/17 12:28 Dose: 1 amp Arformoterol Tartrate (Brovana (Restricted To Pulmonology/Resp) -) 1 amp NEB BID [facility] Last Admin: 01/03/17 22:00 Dose: 1 amp Carvedilol (Coreg -) 3.125 mg PO BID [facility] Last Admin: 01/03/17 21:25 Dose: 3.125 mg Furosemide (Lasix Injection -) 40 mg IVPUSH DAILY [facility] Last Admin: 01/03/17 10:38 Dose: 40 mg Heparin Sodium (Porcine) (Heparin -) 5,000 unit SQ BID [facility] Last Admin: 01/03/17 21:25 Dose: 5,000 unit Azithromycin (Zithromax 500mg Ivpb (Pre-Docked)) 250 mls @ 250 mls/hr IVPB DAILY [facility] Last Admin: 01/03/17 10:38 Dose: 250 mls/hr Piperacillin Sod/Tazobactam Sod (Zosyn 3.375gm Ivpb (Pre-Docked)) 50 mls @ 100 mls/hr IVPB Q8H-IV [facility] PRN Reason: Protocol Last Admin: 01/04/17 02:46 Dose: 100 mls/hr Potassium Chloride 10 meq/ (Dextrose/Sodium Chloride) 1,005 mls @ 35 mls/hr IVPB Q24H [facility] Last Admin: 01/03/17 13:37 Dose: 35 mls/hr Methylprednisolone Sodium Succinate (Solu-Medrol -) 40 mg IVPB DAILY [facility] Stop: 01/06/17 12:14 Last Admin: 01/03/17 10:38 Dose: 40 mg Morphine Sulfate (Morphine Injection -) 2 mg IVPUSH Q4H PRN PRN Reason: PAIN Last Admin: 01/04/17 02:46 Dose: 2 mg - Objective Vital Signs: Vital Signs Temperature 97.4 F L 01/04/17 06:00 Pulse Rate 128 H 01/04/17 06:00 Respiratory Rate 20 01/04/17 06:00 Blood Pressure 103/65 01/04/17 06:00 O2 Sat by Pulse Oximetry (%) 96 01/04/17 01:57 Constitutional: Yes: No Distress Cardiovascular: Yes: S1, S2 Respiratory: Yes: Rhonchi Gastrointestinal: Yes: Soft. No: Tenderness, Rebound Edema: No Labs: CBC, BMP 01/03/17 05:30 01/03/17 14:30 INR, PTT INR 1.11 (0.82-1.09) 12/31/16 22:25 Assessment/Plan Impression 1. BIANCA improved with hypokalemia and high BUN to Cr ratio on steroids and lasix based on yesterday's labs 2. resp failure requiring bipap 3. hx CHF 4. hypotension 5. sepsis 6. CAD 7. COPD Plan Hold today's lasix dose then re evaluate in am Continue in the D5 NS with KCL as ordered despite the serum sodium of 145 since pt is not eatring and BP low and pulse rate elevated Dr Pickett
[2017-01-04] MEDS ORDERED: POTASSIUM CHLORIDE 20 MEQ PREMIX IVPB 100 ML IVPB ONE (08:33)
--- NOTE | 2017-01-04 09:01 | PN ---
Progress Note, Physician History of Present Illness: Lethargic on bipap Breathing non-labored Afebrile, WBC slightly elevated Uric acid WNL - Current Medication List Current Medications: Active Medications Albuterol/Ipratropium (Duoneb -) 1 amp NEB Q4H PRN Last Admin: 01/01/17 12:28 Dose: 1 amp Arformoterol Tartrate (Brovana (Restricted To Pulmonology/Resp) -) 1 amp NEB BID [facility] Last Admin: 01/03/17 22:00 Dose: 1 amp Carvedilol (Coreg -) 3.125 mg PO BID [facility] Last Admin: 01/03/17 21:25 Dose: 3.125 mg Heparin Sodium (Porcine) (Heparin -) 5,000 unit SQ BID [facility] Last Admin: 01/03/17 21:25 Dose: 5,000 unit Azithromycin (Zithromax 500mg Ivpb (Pre-Docked)) 250 mls @ 250 mls/hr IVPB DAILY [facility] Last Admin: 01/03/17 10:38 Dose: 250 mls/hr Piperacillin Sod/Tazobactam Sod (Zosyn 3.375gm Ivpb (Pre-Docked)) 50 mls @ 100 mls/hr IVPB Q8H-IV [facility] PRN Reason: Protocol Last Admin: 01/04/17 02:46 Dose: 100 mls/hr Potassium Chloride 10 meq/ (Dextrose/Sodium Chloride) 1,005 mls @ 35 mls/hr IVPB Q24H [facility] Last Admin: 01/03/17 13:37 Dose: 35 mls/hr Methylprednisolone Sodium Succinate (Solu-Medrol -) 40 mg IVPB DAILY [facility] Stop: 01/06/17 12:14 Last Admin: 01/03/17 10:38 Dose: 40 mg Morphine Sulfate (Morphine Injection -) 2 mg IVPUSH Q4H PRN PRN Reason: PAIN Last Admin: 01/04/17 02:46 Dose: 2 mg - Objective Vital Signs: Vital Signs Temperature 97.4 F L 01/04/17 06:00 Pulse Rate 128 H 01/04/17 06:00 Respiratory Rate 20 01/04/17 06:00 Blood Pressure 103/65 01/04/17 06:00 O2 Sat by Pulse Oximetry (%) 96 01/04/17 01:57 Constitutional: Yes: No Distress Eyes: Yes: Conjunctiva Clear Cardiovascular: Yes: Regular Rate and Rhythm, S1, S2 Respiratory: Yes: Diminished Gastrointestinal: Yes: Normal Bowel Sounds, Soft. No: Tenderness Edema: No Labs: CBC, BMP 01/03/17 05:30 01/03/17 14:30 INR, PTT INR 1.11 (0.82-1.09) 12/31/16 22:25 Assessment/Plan Exacerbation COPD HCAP Sepsis secondary to pneumonia Lactic acidosis Renal failure- resolved leukocytosis Possible acute gouty arthritis Await c/s Continue respiratory support Continue zosyn/ zithromax. Adjusted for improved renal function
[2017-01-04] MEDS: ARFORMOTEROL TARTRATE 15 MCG/2 ML VIAL NEB SCH (09:30)
[2017-01-04] MEDS: methylPREDNISolone NA SUCC 40 MG/1 ML VIAL IVPB SCH (09:37)
[2017-01-04] MEDS: HEPARIN NA (PORCINE) 5,000 UNITS/ML 1ML VIAL SQ SCH (09:37)
--- NOTE | 2017-01-04 10:09 | PN ---
Progress Note (short form) - Note Progress Note: PULMONARY/CCM Pt seen and examined in the ICU. Remains dependent on BiPAP, desaturates quickly when off. Somnolent but arousable. Appears less tachypneic today. Last Vital Signs Temp Pulse Resp BP Pulse Ox 97.4 F L 117 H 20 103/65 100 01/04/17 06:00 01/04/17 09:15 01/04/17 06:00 01/04/17 06:00 01/04/17 09:15 Intake & Output 01/01/17 01/02/17 01/03/17 01/04/17 23:59 23:59 23:59 23:59 Intake Total 2091 1394 2225 345 Output Total 500 Balance 2091 894 2225 345 Weight 120 lb 2 oz 121 lb 8 oz 122 lb 6.4 oz 116 lb 2 oz Gen: somnolent but arousable, less tachypneic Heart: tachycardic, regular Lung: distant breath sounds Abd: soft, nontender Ext: no edema CBC, BMP 01/03/17 05:30 01/03/17 14:30 Active Medications Albuterol/Ipratropium (Duoneb -) 1 amp NEB Q4H PRN Last Admin: 01/01/17 12:28 Dose: 1 amp Arformoterol Tartrate (Brovana (Restricted To Pulmonology/Resp) -) 1 amp NEB BID [facility] Last Admin: 01/04/17 09:30 Dose: 1 amp Carvedilol (Coreg -) 3.125 mg PO BID [facility] Last Admin: 01/03/17 21:25 Dose: 3.125 mg Heparin Sodium (Porcine) (Heparin -) 5,000 unit SQ BID [facility] Last Admin: 01/04/17 09:37 Dose: 5,000 unit Azithromycin (Zithromax 500mg Ivpb (Pre-Docked)) 250 mls @ 250 mls/hr IVPB DAILY [facility] Last Admin: 01/03/17 10:38 Dose: 250 mls/hr Piperacillin Sod/Tazobactam Sod (Zosyn 3.375gm Ivpb (Pre-Docked)) 50 mls @ 100 mls/hr IVPB Q8H-IV [facility]OBBY PRN Reason: Protocol Last Admin: 01/04/17 09:37 Dose: 100 mls/hr Potassium Chloride 10 meq/ (Dextrose/Sodium Chloride) 1,005 mls @ 35 mls/hr IVPB Q24H [facility] Last Admin: 01/03/17 13:37 Dose: 35 mls/hr Methylprednisolone Sodium Succinate (Solu-Medrol -) 40 mg IVPB DAILY [facility] Stop: 01/06/17 12:14 Last Admin: 01/04/17 09:37 Dose: 40 mg Morphine Sulfate (Morphine Injection -) 2 mg IVPUSH Q4H PRN PRN Reason: PAIN Last Admin: 01/04/17 02:46 Dose: 2 mg A/P Acute Hypoxic Respiratory Failure Pneumonia Acute COPD Exacerbation Severe Sepsis Acute Kidney Injury improving Lactic Acidosis resolved LV Diastolic Dysfunction CAD PAD Hyperlipidemia Gout - continue antibiotics - lasix as needed - monitor urine output, creatinine - beta merary - continue medrol - inhaled bronchodilators standing and PRN - taper FiO2 to keep SpO2 >90% - BiPAP to assist in work of breathing - aspiration precautions - DVT/GI prophyalxis - continue ICU monitoring for tenuous respiratory status critical care time spent in reviewing chart, evaluating patient and formulating plan 35 min
[2017-01-04] MEDS: CARVEDILOL 3.125 MG TABLET (FP) PO SCH (11:41)
[2017-01-04] MEDS: AZITHROMYCIN IVPB 250 ML IVPB SCH (11:41)
--- NOTE | 2017-01-04 14:10 | PN ---
Progress Note, Physician History of Present Illness: Remains bipap-dependent with sinus tachycardia and hypertension. - Current Medication List Current Medications: Active Medications Albuterol/Ipratropium (Duoneb -) 1 amp NEB Q4H PRN Last Admin: 01/01/17 12:28 Dose: 1 amp Arformoterol Tartrate (Brovana (Restricted To Pulmonology/Resp) -) 1 amp NEB BID [facility] Last Admin: 01/04/17 09:30 Dose: 1 amp Carvedilol (Coreg -) 3.125 mg PO BID [facility] Last Admin: 01/04/17 11:41 Dose: 3.125 mg Heparin Sodium (Porcine) (Heparin -) 5,000 unit SQ BID [facility] Last Admin: 01/04/17 09:37 Dose: 5,000 unit Azithromycin (Zithromax 500mg Ivpb (Pre-Docked)) 250 mls @ 250 mls/hr IVPB DAILY [facility] Last Admin: 01/04/17 11:41 Dose: 250 mls/hr Piperacillin Sod/Tazobactam Sod (Zosyn 3.375gm Ivpb (Pre-Docked)) 50 mls @ 100 mls/hr IVPB Q8H-IV BOBBY PRN Reason: Protocol Last Admin: 01/04/17 09:37 Dose: 100 mls/hr Potassium Chloride 10 meq/ (Dextrose/Sodium Chloride) 1,005 mls @ 35 mls/hr IVPB Q24H [facility] Last Admin: 01/03/17 13:37 Dose: 35 mls/hr Methylprednisolone Sodium Succinate (Solu-Medrol -) 40 mg IVPB DAILY [facility] Stop: 01/06/17 12:14 Last Admin: 01/04/17 09:37 Dose: 40 mg Morphine Sulfate (Morphine Injection -) 2 mg IVPUSH Q4H PRN PRN Reason: PAIN Last Admin: 01/04/17 02:46 Dose: 2 mg - Objective Vital Signs: Vital Signs Temperature 97.2 F L 01/04/17 10:00 Pulse Rate 130 H 01/04/17 12:00 Respiratory Rate 18 01/04/17 12:00 Blood Pressure 104/65 01/04/17 12:00 O2 Sat by Pulse Oximetry (%) 100 01/04/17 09:15 Constitutional: Yes: Mild Distress, Thin Neck: Yes: Supple Cardiovascular: Yes: Tachycardia, Pulse Irregular Respiratory: Yes: Regular, Diminished, On BiPap Gastrointestinal: Yes: Normal Bowel Sounds, Soft Edema: No Labs: CBC, BMP 01/03/17 05:30 01/03/17 14:30 INR, PTT INR 1.11 (0.82-1.09) 12/31/16 22:25 - ....Imaging Chest X-ray: Report Reviewed (RUL infiltrate) Problem List - Problems (1) Acute renal insufficiency Code(s): N28.9 - DISORDER OF KIDNEY AND URETER, UNSPECIFIED (2) Pneumonia Code(s): J18.9 - PNEUMONIA, UNSPECIFIED ORGANISM Qualifiers: Pneumonia type: due to unspecified organism Laterality: unspecified laterality Lung location: unspecified part of lung Qualified Code(s): J18.9 - Pneumonia, unspecified organism (3) Sepsis Code(s): A41.9 - SEPSIS, UNSPECIFIED ORGANISM Qualifiers: Sepsis type: sepsis due to unspecified organism Qualified Code(s): A41.9 - Sepsis, unspecified organism (4) COPD (chronic obstructive pulmonary disease) Code(s): J44.9 - CHRONIC OBSTRUCTIVE PULMONARY DISEASE, UNSPECIFIED Qualifiers : COPD type: unspecified COPD Qualified Code(s): J44.9 - Chronic obstructive pulmonary disease, unspecified (5) Hypercholesteremia Code(s): E78.00 - PURE HYPERCHOLESTEROLEMIA, UNSPECIFIED (6) Diastolic dysfunction without heart failure Code(s): I51.9 - HEART DISEASE, UNSPECIFIED (7) Sinus tachycardia seen on playground monitor Code(s): R00.0 - TACHYCARDIA, UNSPECIFIED (8) Gout Code(s): M10.9 - GOUT, UNSPECIFIED Assessment/Plan 11/21/2016 Echocardiogram showed normal LV systolic function, mild MR and trace to mild TR 1. Acute on chronic hypercapneic respiratory failure, right PNA 2. Sinus tachycardia referable to #1 3. Post septic shock with lactic acidosis and leukocytosis off pressors 4. LV diastolic dysfunction with h/o failure 5. Acute kidney injury referable to hemodynamics alterations improving 6. Hyperlipidemia 7. ASHD, angina pectoris 8. PAD s/p DEMURRAGE MAN, nonobstructive carotid disease 9. Gout PLAN: 1. Cont BiPAP and wean FIO2 for goal SPO2 92%, bronchodilators, antibiotics course per C&S, and IV steroids taper with GI protection 2. Lasix 40mg as needed, losartan 25 qd held pending renal recovery. Replete K, increase carvedilol 6.25 bid as hemodynamics tolerate, Lipitor 20mg qhs qd, ASA 81mg qd, Pletal 100 bid 3. F/u urine studies 4. DVT and GI prophylaxis
[2017-01-04] MEDS ORDERED: CARVEDILOL 6.25 MG TABLET (FP) PO SCH (14:30)
[2017-01-04] MEDS: ALBUTEROL SO4 2.5/IPRATROPIUM 0.5 INH SOL 3 ML VIAL.NEB. NEB PRN (15:09)
[2017-01-04] MEDS: POTASSIUM CHLORIDE 10 MEQ in DEXTROSE 5%-NORMAL SALINE 1,000 ML IVPB SCH (15:11)
[2017-01-04 16:34] VITALS: TEMP 98.8
[2017-01-04] MEDS ORDERED: SODIUM CHLORIDE 250 ML IV ONE ×2 (16:45→18:00)
[2017-01-04] MEDS ORDERED: DEXTROSE 5%-NORMAL SALINE 1,000 ML with POTASSIUM CHLORIDE 10 MEQ IV SCH (18:00)
[2017-01-04 19:35] VITALS: BP 93/54
[2017-01-04] MEDS ORDERED: MORPHINE 100 MG in SODIUM CHLORIDE 98 ML IVPB SCH (20:00)
--- NOTE | 2017-01-04 21:55 | PN ---
Progress Note, Physician Chief Complaint: ASLEEP BIPAP CONTINUED SON BEDSIDE - Current Medication List Current Medications: Active Medications Morphine Sulfate 100 mg/ (Sodium Chloride) 100 mls @ 1 mls/hr IVPB TITR [facility]OBBY; 1 MG/HR PRN Reason: Protocol Last Admin: 01/04/17 20:05 Dose: 1 mls/hr Morphine Sulfate (Morphine Injection -) 2 mg IVPUSH Q4H PRN PRN Reason: PAIN Last Admin: 01/04/17 19:32 Dose: 2 mg - Objective Vital Signs: Vital Signs Temperature 98.8 F 01/04/17 14:00 Pulse Rate 122 H 01/04/17 18:00 Respiratory Rate 30 H 01/04/17 18:00 Blood Pressure 93/54 01/04/17 18:00 O2 Sat by Pulse Oximetry (%) 100 01/04/17 09:15 Constitutional: Yes: Severe Distress Eyes: Yes: WNL HENT: Yes: WNL Neck: Yes: WNL Cardiovascular: Yes: WNL Respiratory: Yes: On BiPap Gastrointestinal: Yes: WNL Musculoskeletal: Yes: Muscle Weakness Extremities: Yes: WNL Edema: Yes Peripheral Pulses WNL: Yes Integumentary: Yes: WNL Neurological: Yes: Pre-Existing Deficit ...Motor Strength: LLE, RLE Labs: CBC, BMP 01/03/17 05:30 01/03/17 14:30 INR, PTT INR 1.11 (0.82-1.09) 12/31/16 22:25 Problem List - Problems (1) Acute renal insufficiency Code(s): N28.9 - DISORDER OF KIDNEY AND URETER, UNSPECIFIED (2) Pneumonia Code(s): J18.9 - PNEUMONIA, UNSPECIFIED ORGANISM Qualifiers: Pneumonia type: due to unspecified organism Laterality: unspecified laterality Lung location: unspecified part of lung Qualified Code(s): J18.9 - Pneumonia, unspecified organism (3) Acute on chronic diastolic (congestive) heart failure Code(s): I50.33 - ACUTE ON CHRONIC DIASTOLIC (CONGESTIVE) HEART FAILURE (4) Anemia Code(s): D64.9 - ANEMIA, UNSPECIFIED (5) CHF exacerbation Code(s): I50.9 - HEART FAILURE, UNSPECIFIED Qualifiers: Congestive heart failure type: unspecified congestive heart failure type Qualified Code(s): I50.9 - Heart failure, unspecified (6) COPD (chronic obstructive pulmonary disease) Code(s): J44.9 - CHRONIC OBSTRUCTIVE PULMONARY DISEASE, UNSPECIFIED Qualifiers : COPD type: unspecified COPD Qualified Code(s): J44.9 - Chronic obstructive pulmonary disease, unspecified Assessment/Plan DISCUSSED WITH FAMILY OPTING FOR IN HOSPITAL HOSPICE MORPHINE DRIP FOR COMFORT TITRATE NEEDED NO LABS/DRAWS OR MEDICATIONS OTHER THAN FOR COMFORT
[2017-01-04] MEDS ORDERED: SCOPOLAMINE HYDROBROMIDE 1 PATCH PATCH.TD72 TD SCH (22:00)
[2017-01-04 23:09] VITALS: PULSE 0
[2017-01-05] MEDS ORDERED: PANTOPRAZOLE 20 MG TABLET (FP) PO SCH (10:00)
== END 2017-01-04 22:40 | disposition expired | DRG 871 ==
LOC: JER 21:51 → JERBED 23:49 → UNDOADMIN 01-01 00:01 → JICU 01-01 02:28
PROVIDERS: ADMIT Family Medicine; ATTEND Family Medicine
PROC: 5A09557 Assistance with Respiratory Ventilation, Greater than 96 Consecutive Hours, Continuous Positive Airway Pressure (ICD-10-PCS; principal; 2016-12-31)
DX: A41.9 Sepsis, unspecified organism (principal); J96.22 Acute and chronic respiratory failure with hypercapnia; I50.33 Acute on chronic diastolic (congestive) heart failure; J18.9 Pneumonia, unspecified organism; R65.21 Severe sepsis with septic shock; N17.9 Acute kidney failure, unspecified; E87.2 Acidosis; E78.5 Hyperlipidemia, unspecified; I73.9 Peripheral vascular disease, unspecified; N40.0 Benign prostatic hyperplasia without lower urinary tract symptoms; M10.9 Gout, unspecified; I25.119 Atherosclerotic heart disease of native coronary artery with unspecified angina pectoris; Z98.61 Coronary angioplasty status; Z85.46 Personal history of malignant neoplasm of prostate; I11.0 Hypertensive heart disease with heart failure; Z66 Do not resuscitate; Y95 Nosocomial condition; R41.82 Altered mental status, unspecified; D64.9 Anemia, unspecified; D72.829 Elevated white blood cell count, unspecified; I95.9 Hypotension, unspecified; R00.0 Tachycardia, unspecified
CPT/HCPCS: 36415; 36600; 71010-TC; 76775-TC; 76856-TC; 80048; 80053; 82550; 82553; 82803; 83605; 83735; 83880; 84100; 84484; 84550; 85025; 85610; 85730; 87040; 87899; 93005; 93010; 94640; 94660; 99283-25; J1644